=== PATIENT | male | born 1940 | race Caucasian/White ===

== ENCOUNTER 2017-04-10 16:39 | Emergency (ER) | payer MEDICARE, BC ==
--- NOTE | 2017-04-10 17:39 | ED ---
General Adult HPI - General Chief complaint: Extremity Injury, Lower Stated complaint: FALL Time Seen by Provider: 04/10/17 17:24 Source: patient, RN notes reviewed Mode of arrival: wheelchair Limitations: no limitations - History of Present Illness Initial comments: Patient is a 77-year-old male presents emergency room for evaluation of fall injury. Patient states about 3 days ago he was cleaning his garage, and he fell on his left side. Patient states he landed on his hip and hit the left side of his head. Patient denies loss of consciousness. Patient denies headache or dizziness. Patient states he got up and finished cleaning the garage. Patient states he did not have any pain for the past 2 days. Patient states yesterday he woke up again having pain over his right hip and left groin. Patient states he has pain whenever he tries to walk. Patient denies low back pain. Patient denies fecal or urinary incontinence. Patient denies saddle anesthesia. Patient denies paresthesias. Patient denies any current headache, changes in vision, ear pain, ringing in ears, nausea or vomiting. Patient denies any other injuries during incident. Patient states he is here to make sure his hip is not broken. Patient does state he has a history of left hip replacement. Patient denies taking any blood thinners. - Related Data Home Medications Medication Instructions Recorded Confirmed Hydrochlorothiazide [Hydrodiuril] 25 mg PO DAILY 04/10/17 04/10/17 Tamsulosin HCl [Flomax] 0.4 mg PO DAILY 04/10/17 04/10/17 Valsartan [Diovan] 40 mg PO BID 04/10/17 04/10/17 amLODIPine [Norvasc] 5 mg PO DAILY 04/10/17 04/10/17 Allergies Allergy/AdvReac Type Severity Reaction Status Date / Time No Known Allergies Allergy Verified 04/10/17 16:53 Review of Systems ROS Statement: Those systems with pertinent positive or pertinent negative responses have been documented in the HPI. ROS Other: All systems not noted in ROS Statement are negative. Past Medical History Past Medical History: Hypertension History of Any Multi-Drug Resistant Organisms: None Reported Past Surgical History: Orthopedic Surgery Additional Past Surgical History / Comment(s): left hip replacement Past Psychological History: No Psychological Hx Reported Smoking Status: Never smoker Past Alcohol Use History: None Reported Past Drug Use History: None Reported General Exam - General Exam Comments Initial Comments: Sitting in exam room, no acute distress. Limitations: no limitations General appearance: alert, in no apparent distress Head exam: Present: atraumatic, normocephalic, normal inspection Eye exam: Present: normal appearance ENT exam: Present: normal exam Neck exam: Present: normal inspection Respiratory exam: Present: normal lung sounds bilaterally. Absent: respiratory distress Cardiovascular Exam: Present: regular rate, normal rhythm, normal heart sounds Left Hip exam: Present: normal inspection, full ROM, tenderness (Anterior lateral hip ). Absent: swelling, abrasion Upper Leg exam: Present: normal inspection, full ROM. Absent: tenderness Knee exam: Present: normal inspection, full ROM. Absent: tenderness Lower Leg exam: Present: normal inspection, full ROM. Absent: tenderness Ankle exam: Present: normal inspection, full ROM. Absent: tenderness Foot/Toe exam: Present: normal inspection, full ROM. Absent: tenderness Neurovascular tendon exam: Present: no vascular compromise. Absent: pulse deficit (2+ dorsal pedal and posterior to the pulses), abnormal cap refill ( Capillary refill less than 2 seconds) Gait: observed and normal Right Hip exam: Present: normal inspection, full ROM, tenderness (Anterior lateral portion). Absent: swelling Upper Leg exam: Present: normal inspection, full ROM. Absent: tenderness Knee exam: Present: normal inspection, full ROM. Absent: tenderness Lower Leg exam: Present: normal inspection, full ROM. Absent: tenderness Ankle exam: Present: normal inspection, full ROM. Absent: tenderness Foot/Toe exam: Present: normal inspection, full ROM. Absent: tenderness Neurovascular tendon exam: Present: no vascular compromise. Absent: pulse deficit (2+ dorsal pedal and posterior tibial pulses), abnormal cap refill ( Capillary refill less than 2 seconds) Gait: observed and normal Back exam: Present: normal inspection Neurological exam: Present: alert, oriented X3, CN II-XII intact, normal gait Expanded Patient oriented to: Present: person, place, time Speech: Present: fluid speech Cranial nerves: EOM's Intact: Normal, Facial Sensation: Normal Sensory exam: Upper Extremity Light Touch: Normal, Lower Extremity Light Touch: Normal Motor strength exam: RUE: 5, LUE: 5, RLE: 5, LLE: 5 Psychiatric exam: Present: normal affect, normal mood Skin exam: Present: warm, dry, intact, normal color. Absent: rash Course Vital Signs 04/10/17 04/10/17 16:51 20:29 Temperature 97.8 F 97.7 F Pulse Rate 77 73 Respiratory 20 18 Rate Blood Pressure 120/69 139/82 O2 Sat by Pulse 99 98 Oximetry Medical Decision Making - Medical Decision Making patient is a 77-year-old male presents to the emergency room for evaluation of fall injury 3 days. Patient complaining of hip pain. Patient also mentioned he hit his head. Brain/C-spine CT negative for any acute findings. Bilateral hip/AP pelvis x-ray negative for any acute findings. Advised patient to follow- up with his primary care provider for reevaluation in 24-48 hours. Patient states he understands everything that was discussed with him. Return parameters discussed. Case discussed Dr. Lopez. - Radiology Data Radiology results: report reviewed, image reviewed Disposition Clinical Impression: Fall, Closed head injury, Contusion, hip Disposition: HOME SELF-CARE Condition: Good Instructions: Hip Contusion (ED) Additional Instructions: Ice on and off for 10-15 minutes for the next 24-48 hours. Tylenol or Motrin as needed for pain. Please follow-up with primary care provider in 7-10 days if symptoms are not improving. If new symptoms develop or symptoms worsen, please return to the ER. Referrals: Jo Yost MD [Primary Care Provider] - 1-2 days Time of Disposition: 20:27
[2017-04-10 20:30] VITALS: BP 139/82; PULSE 73; RESP 18; TEMP 97.7
--- NOTE | 2017-04-10 21:59 | CT ---
EXAMINATION TYPE: CT brain reji frost DATE OF EXAM: 04/10/2017 COMPARISON: NONE HISTORY: Fell 3 days ago with left-sided head injury. Neck pain. CT DLP: mGycm Automated exposure control for dose reduction was used. TECHNIQUE: CT scan of the head and cervical spine are performed without contrast. FINDINGS: There is some cerebral cortical atrophy. There is no mass effect nor midline shift. There is no sign of intracranial hemorrhage. The calvarium is intact. There is right temporal bone cortica l thinning that could be due to old surgery. Cervical vertebra have normal alignment. There is some degenerative disc space narrowing at C4-5 C5-6 . There is mild spurring of the endplates. Posterior elements are intact. Skull base is intact. There is no sign of a fracture. IMPRESSION: Cerebral atrophy. No acute intracranial abnormality. Mild spondylotic changes in the cervical spine. No fracture.
--- NOTE | 2017-04-11 08:24 | XR ---
EXAMINATION TYPE: XR Hip Bilateral and AP pelvis DATE OF EXAM: 04/10/2017 COMPARISON: NONE HISTORY: Generalized hip and back pain TECHNIQUE: A single AP view of the pelvis is obtained. Two views of the both hips are obtained. FINDINGS: There is no acute fracture/dislocation evident in the pelvis. The overlying soft tissue a ppears unremarkable. Two views of both hips show no acute fracture or dislocation. 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 Degenerative changes are seen in the right femoral acetabular joint inse rted as joint space narrowing and acetabular sclerosis. Extensive degenerative changes are appreciate d of the lumbosacral junction. The bone mineral density appears diminished. The overlying soft tissu e is unremarkable. IMPRESSION: There is no acute fracture or dislocation in the pelvis or bilateral hips.
--- NOTE | 2017-04-11 08:25 | XR ---
EXAMINATION TYPE: XR lumbosacral spine min 4V DATE OF EXAM: 04/10/2017 CLINICAL HISTORY: Back pain and hip pain. TECHNIQUE: Frontal, lateral, and oblique images of the lumbar spine are obtained. COMPARISON: None FINDINGS: There are 5 lumbar type vertebral bodies identified. The lumbar spine shows satisfactory alignment without evidence of acute fracture or dislocation. Extensive degenerative changes are seen of the lumbosacral junction at L5-S1 including disc space narrowing, facet arthropathy, and endplate sclerosis. To a lesser degree degenerative changes are seen at L4-L5. Bilateral neural foraminal narr owing is appreciated at L4-L5 and greater at L5-S1. Cholecystectomy clips are noted within the right upper quadrant. Vertebral body heights and disk space heights are within normal limits. The overlyi ng soft tissue appears unremarkable. IMPRESSION: Degenerative changes most exaggerated at L5-S1 with no evidence of acute fracture or disl ocation.
== END 2017-04-10 20:43 | disposition home or self-care (01) ==
LOC: EC 16:39
DX: S09.90XA Unspecified injury of head, initial encounter (principal); S70.02XA Contusion of left hip, initial encounter; I10 Essential (primary) hypertension; Z96.642 Presence of left artificial hip joint; Z79.899 Other long term (current) drug therapy; W01.0XXA Fall on same level from slipping, tripping and stumbling without subsequent striking against object, initial encounter; Y93.E5 Activity, floor mopping and cleaning; Y92.59 Other trade areas as the place of occurrence of the external cause
CPT/HCPCS: 70450; 72110; 72125; 73521; 99284

== ENCOUNTER 2018-01-24 07:19 | Day surgery (SDC) | payer MEDICARE, BC ==
[~2018-01-24 07:19] MED LIST: FAMOTIDINE 20 MG/2 ML VIAL IV ONE; ONDANSETRON 4 MG/2 ML VIAL IVP ONE; ceFAZolin 1,000 MG in DEXTROSE/WATER 1 50ML.BAG IV ONE
[2018-01-24 07:47] VITALS: BMI 17.1
[2018-01-24 07:56] VITALS: RESP 16
[2018-01-24] MEDS ORDERED: SODIUM CHLORIDE 0.9% 1,000 ML IV SCH (08:00)
[2018-01-24] MEDS ORDERED: IV FLUID CONTINUATION 1,000 ML IV ONE (08:23)
[2018-01-24] MEDS ORDERED: fentaNYL (PF) 50 MCG/ML 2 ML AMP ONE (08:39)
[2018-01-24] MEDS ORDERED: MIDAZOLAM 2 MG/2 ML VIAL ONE (08:39)
[2018-01-24] MEDS ORDERED: KETAMINE 10 MG/ML 20 ML VIAL ONE (08:39)
[2018-01-24] MEDS ORDERED: LIDOCAINE 2%-EPI 1:200,000 20 ML VIAL SQ ONE (08:55)
[2018-01-24] MEDS ORDERED: ceFAZolin 1,000 MG/50 ML BAG (PMX) IVPB ONE (08:55)
--- NOTE | 2018-01-24 10:10 | P.OP ---
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 Anesthesia: MAC Surgeon: Gomez Forde Pathology: none sent Condition: stable Disposition: PACU Indications for Procedure: This patient had been cancer removed from the left face and nose measuring 4 x 2 cm. Surgical repair was recommended by his instrumentation manager surgeon. All risks , benefits, and alternative therapies were discussed. Consent was obtained and all questions were answered. Operative Findings: Patient had a large defect of the left cheek medially and left nose measuring 4 x 2 cm. Description of Procedure: This patient was taken to the operative room and placed in the supine position. IV sedation was administered to the patient through a functioning IV line and the face was sterilely prepped and draped in usual fashion. The left face and left postauricular area was sterilely prepped and draped in usual fashion and anesthetized with lidocaine 1% with epinephrine 1 100,000. Approximately 10 minutes were allowed wait for full vasoconstrictive effects to take place. We did a debridement of the left facial defect with the delicate plastic scissors and a Brown-Adson forceps. We then harvested tissue behind the left ear with a 15 blade delicate plastic scissors and a Brown-Adson forceps and did a complex closure of the donor site with extensive undermining we removed redundant tissue and prepped the skin edge. The undermining was done both anteriorly posteriorly superiorly and inferiorly. We close the donor site after hemostasis with use of a 3-0 PDS and a 50 rapid Vicryl in a running nonlocking fashion this was done in all complex fashion. After closure of the donor site the skin was cut to size prepped defatted and placed as an overlay graft. A bolster dressing was applied to hold the skin into position with use of a 50 rapid Vicryl and a cottonball covered with Adaptic and bacitracin ointment. The patient tolerated this well and follow-up will be in the office in 1 week. The patient is to contact me if any from should arise.
[2018-01-24 10:14] VITALS: TEMP 97.1
[2018-01-24 10:46] VITALS: BP 115/66; PULSE 62
== END 2018-01-24 11:39 | disposition home or self-care (01) ==
LOC: OR 07:19 → 3SUR 07:21 → OR 11:39
PROVIDERS: ATTEND Otolaryngology
DX: L98.9 Disorder of the skin and subcutaneous tissue, unspecified (principal); Z85.828 Personal history of other malignant neoplasm of skin; I10 Essential (primary) hypertension; N40.0 Benign prostatic hyperplasia without lower urinary tract symptoms; Z79.2 Long term (current) use of antibiotics; Z79.891 Long term (current) use of opiate analgesic; Z79.899 Other long term (current) drug therapy
CPT/HCPCS: 15240; J2250; J3010; J0690

== ENCOUNTER 2018-02-26 11:45 | Day surgery (SDC) | payer MEDICARE, BC ==
[2018-02-26 12:57] LABS: Glucose,Whole Blood 138 mg/dL (75-99)
[2018-02-26] MEDS ORDERED: LIDOCAINE 1% 20 ML VIAL (10MG/ML) FOR IV START INTRADERMA ONE (13:08)
[2018-02-26] MEDS ORDERED: LACTATED RINGERS 1,000 ML IV ONE (13:08)
[2018-02-26] MEDS ORDERED: BUPIVACAINE (PF) 0.5% 30 ML VIAL SQ ONE ×3 (14:04→14:27)
[2018-02-26] MEDS ORDERED: LIDOCAINE 1%-EPI 1:100,000 20 ML VIAL SQ ONE ×2 (14:04→14:27)
[2018-02-26] MEDS ORDERED: diphenhydrAMINE 50 MG/ML 1 ML VIAL ONE (14:05)
[2018-02-26] MEDS ORDERED: ARTIFICIAL TEARS OINTMENT 3.5 GM TUBE ONE (14:05)
[2018-02-26] MEDS ORDERED: fentaNYL (PF) 50 MCG/ML 2 ML AMP ONE (14:05)
[2018-02-26] MEDS ORDERED: PROPOFOL 10 MG/ML 20 ML VIAL IV ONE (14:05)
[2018-02-26 15:36] VITALS: TEMP 97.1
--- NOTE | 2018-02-26 15:47 | P.OP ---
Date of Procedure: 02/26/18 Preoperative Diagnosis: 4.6 x 2 cm right posterior auricular lesion Postoperative Diagnosis: Same Procedure(s) Performed: Excision of a 4.6 x 2 cm posterior right auricular lesion with bilateral advancement flap closure with a secondary defect measuring 8.2 x 4 cm. Anesthesia: MAC Surgeon: Gomez Forde Estimated Blood Loss (ml): 5 Pathology: other (right posterior auricular lesion) Condition: stable Disposition: PACU Indications for Procedure: This patient has a history of multiple skin cancers and developed a new friable lesion behind the right ear. Wider resection was recommended. Operative Findings: All margins are negative for tumor Description of Procedure: Patient was taken to the operative room and IV sedation was administered and the right ear was sterilely prepped and draped in usual fashion. The lesion was marked and measured 4.6 x 2 cm and excised after injected with lidocaine and Marcaine mixed with a 15 blade. We injected this area with lidocaine 1% with epinephrine 1 100,011 Marcaine. There was a course prepped and draped in usual fashion. An incision was made surrounding this lesion he was excised with the delicate plastic scissors and a Brown-Adson forceps and marked medially black and inferiorly blue. Margins came back negative for tumor. We then filled developed an H-type incision and close this defect and elevated superior and inferiorly based pedicle flaps. After the pedicle flaps were developed a we rotated the flaps into position to close the defect and close the deep subcutaneous tissue with 3-0 PDS. We closed the deep dermal layer with 4-0 Vicryl we closed the mid dermal layer with 4-0 Vicryl and the skin was closed with a 4-0 Rapide Vicryl in an interrupted type fashion. Excellent approximation was obtained. Patient was taken to postanesthesia recovery in excellent condition. Follow-up will be in the office in 1 week.
[2018-02-26 16:01] LABS: Basophils % (A) 1 %; Eosinophils % (A) 0 %; HCT 38.5 % (39.0-53.0); HGB 12.8 gm/dL (13.0-17.5); Lymphocytes # (A) 0.7 k/uL (1.0-4.8); Lymphocytes % (A) 15 %; MCH 30.4 pg (25.0-35.0); MCHC 33.4 g/dL (31.0-37.0); MCV 91.1 fL (80.0-100.0); Mean Platelet Volume 7.1; Monocytes # (A) 0.3 k/uL (0-1.0); Monocytes % (A) 7 %; Neutrophils # (A) 3.5 k/uL (1.3-7.7); Neutrophils % (A) 76 %; Platelet Count 175 k/uL (150-450); RBC 4.22 m/uL (4.30-5.90); RDW 13.5 % (11.5-15.5); WBC 4.6 k/uL (3.8-10.6)
[2018-02-26 16:16] VITALS: RESP 18
[2018-02-26 16:22] LABS: Albumin 3.7 g/dL (3.5-5.0); C Reactive Protein <5.0 mg/L (<10.0)
[2018-02-26 16:30] VITALS: BP 133/84; PULSE 78
[2018-02-26 18:54] LABS: Erythrocyte Sedimentation Rate 9 mm/hr (0-15)
== END 2018-02-26 16:42 | disposition home or self-care (01) ==
LOC: OR 11:45
PROVIDERS: ATTEND Otolaryngology
DX: D04.21 Carcinoma in situ of skin of right ear and external auricular canal (principal); L57.0 Actinic keratosis; X32.XXXA Exposure to sunlight, initial encounter; I10 Essential (primary) hypertension; N40.0 Benign prostatic hyperplasia without lower urinary tract symptoms; F32.9 Major depressive disorder, single episode, unspecified; Z85.828 Personal history of other malignant neoplasm of skin; Z79.2 Long term (current) use of antibiotics; Z79.1 Long term (current) use of non-steroidal anti-inflammatories (NSAID); Z79.891 Long term (current) use of opiate analgesic; Z79.52 Long term (current) use of systemic steroids; Z79.899 Other long term (current) drug therapy; Z96.642 Presence of left artificial hip joint
CPT/HCPCS: 88305; 85652; 82040; 85025; 85384; 86140; 88331; 88332; 14301; J1200; J3010; J0690; J2704

== ENCOUNTER → 2018-05-25 | Outpatient (CLI) | payer MEDICARE, BC ==
[2018-05-25 16:28] LABS: T4, Free (Free Thyroxine) 1.37 ng/dL (0.78-2.19)
== END | disposition home or self-care (01) ==
LOC: LABWHC1 15:32
PROVIDERS: ATTEND Psychiatry & Neurology Neurology
DX: G20 Parkinson's disease (principal); R53.1 Weakness
CPT/HCPCS: 36415; 82550; 82607; 84439; 84443

== ENCOUNTER → 2019-08-07 | Outpatient (CLI) | payer MEDICARE, BC ==
--- NOTE | 2019-08-07 11:20 | MR ---
EXAMINATION TYPE: MR brain/cspine wo DATE OF EXAM: 08/07/2019 COMPARISON: CT brain and cervical spine April 10, 2017 HISTORY: Cervical myelopathy, left-sided weakness, CVA per order. TECHNIQUE: Multiplanar, multisequence imaging of the cervical spine, brain, and brainstem are perform ed without IV contrast. FINDINGS: BRAIN: Diffusion weighted images demonstrate no evidence of a recent infarct or other diffusion abnormality. There is no worrisome extra-axial fluid collection. Diffuse ventricular and sulcal prominence. Scatte red foci of T2 hyperintensity seen throughout the deep and periventricular white matter. Lesions pres umably basis of product of chronic small vessel ischemic change in patient with age. Midline structures demonstrate normal morphology. The craniocervical junction appears within normal limits. Normal vascular flow voids are present. The visualized sinuses are clear and the globes are i ntact. IMPRESSION: There is [id number] diffuse cerebral atrophy and moderate to advanced chronic small vessel ischemic change redemonstrated. No acute stroke is present MRI CERVICAL SPINE: FINDINGS: Sagittal images of the cervical spine show the craniocervical junction to remain within nor mal limits. The cervical and upper thoracic spinal cord is normal in course, caliber, and signal. Th ere is slight grade 1 retrolisthesis C4 on C5. The vertebral body heights are normal. Szcevrcr-ya-[id number] evere disc space narrowing C4-C5 level and C5-C6 level is present. The bone marrow signal intensity i s within normal limits. Axial images show C2-C3 levels appear within normal limits. Axial images at C3-C4 level shows central disc protrusion mildly effaces the anterior thecal sac and causing mild left-sided neural foraminal narrowing. Axial images at C4-C5 level show posterior spur disc complex effacing anterior thecal sac and causing mild left-sided neural foraminal narrowing. Axial images at C5-C6 level shows a left paracentral disc protrusion effacing anterior thecal sac and uncovertebral facet degenerative changes causing mild bilateral neural foraminal narrowing. Axial images at C6-C7 level show focal central disc protrusion effacing the anterior thecal sac, bila teral neural foramina are patent. Axial images at C7-T1 level are within normal limits. Surgical changes right submandibular level partially imaged. IMPRESSION: Multilevel degenerative changes in the cervical spine as detailed above.
== END | disposition home or self-care (01) ==
LOC: RADMRIMAIN 09:56
PROVIDERS: ATTEND Psychiatry & Neurology Neurology
DX: M47.812 Spondylosis without myelopathy or radiculopathy, cervical region (principal); I69.954 Hemiplegia and hemiparesis following unspecified cerebrovascular disease affecting left non-dominant side
CPT/HCPCS: 70551; 72141

== ENCOUNTER → 2019-08-20 | Outpatient (CLI) | payer MEDICARE, BC ==
[2019-08-20 13:41] LABS: Basophils % (A) 1 %; Eosinophils # (A) 0.1 k/uL (0-0.7); Eosinophils % (A) 1 %; HCT 42.4 % (39.0-53.0); Lymphocytes # (A) 0.9 k/uL (1.0-4.8); Lymphocytes % (A) 19 %; MCH 29.9 pg (25.0-35.0); MCV 90.5 fL (80.0-100.0); Mean Platelet Volume 6.6; Monocytes # (A) 0.4 k/uL (0-1.0); Monocytes % (A) 8 %; Neutrophils # (A) 3.4 k/uL (1.3-7.7); Neutrophils % (A) 69 %; Platelet Count 266 k/uL (150-450); RBC 4.68 m/uL (4.30-5.90); RDW 13.4 % (11.5-15.5)
[2019-08-20 13:56] LABS: Partial Thromboplastin Time 25.3 sec (22.0-30.0); Prothrombin Time 10.5 sec (9.0-12.0)
[2019-08-20 19:12] LABS: Chol/HDL Ratio 3.01
== END | disposition home or self-care (01) ==
LOC: LABWHC1 12:25
PROVIDERS: ATTEND Psychiatry & Neurology Neurology
DX: I63.9 Cerebral infarction, unspecified (principal)
CPT/HCPCS: 36415; 80061; 85025; 85610; 85730

== ENCOUNTER → 2019-10-07 | Outpatient (CLI) | payer MEDICARE, BC ==
--- NOTE | 2019-10-07 15:47 | US ---
EXAMINATION TYPE: US carotid duplex BILAT DATE OF EXAM: 10/07/2019 COMPARISON: NONE CLINICAL HISTORY: I65.22 Occlusion and stenosis of left carotid vincent. EXAM MEASUREMENTS: RIGHT: Peak Systolic Velocity (PSV) cm/sec ----- Right CCA: 82.7 ----- Right ICA: 73.5 ----- Right ECA: 129.0 ICA/CCA ratio: 0.89 RIGHT: End Diastole cm/sec ----- Right CCA: 37.0 ----- Right ICA: 20.0 ----- Right ECA: 0.0 LEFT: Peak Systolic Velocity (PSV) cm/sec ----- Left CCA: 65.8 ----- Left ICA: 69.8 ----- Left ECA: 78.7 ICA/CCA ratio: 1.06 LEFT: End Diastole cm/sec ----- Left CCA: 10.3 ----- Left ICA: 15.1 ----- Left ECA: 6.2 VERTEBRALS (direction of flow): Right Vertebral: Antegrade Left Vertebral: Antegrade Rhythm: Normal No significant velocity elevations, mild atherosclerotic changes. IMPRESSION: Mild degree of grayscale atheromatous plaquing with no sonographically evident hemodynam ically significant stenosis within either visualized carotid arterial system. Criteria for Assigning % of Stenosis / Diameter reduction (Estimation based on the indirect measurements of the internal carotid artery velocities (ICA PSV). 1. Normal (no stenosis)=ICA PSV < 125 cm/s: ratio < 2.0: ICA EDV<40 cm/s. 2. Less than 50% stenosis=ICA PSV < 125 cm/s: ratio < 2.0: ICA EDV<40 cm/s. 3. 50 to 69% stenosis=ICA PSV of 125 to 230 cm/s: ration 2.0 ? 4.0: ICA EDV 40-100 cm/s. 4. Greater than 70% stenosis to near occlusion= ICA PSV > 230 cm/s: ratio > 4.0: ICA EDV > 100 cm/s. 5. Near occlusion= ICA PSV velocities may be low or undetectable: variable ratio and ICA EDV. 6. Total occlusion=unable to detect flow.
== END | disposition home or self-care (01) ==
LOC: RADUSWWP 14:54
PROVIDERS: ATTEND Psychiatry & Neurology Neurology
DX: I65.23 Occlusion and stenosis of bilateral carotid arteries (principal); I66.9 Occlusion and stenosis of unspecified cerebral artery
CPT/HCPCS: 93880

== ENCOUNTER 2020-01-12 15:20 | Inpatient (IN) | payer MEDICARE, BC ==
[2020-01-12] MEDS ORDERED: fentaNYL (PF) 50 MCG/ML 2 ML AMP IV STA (16:09)
--- NOTE | 2020-01-12 17:19 | ED ---
Fall HPI - General Chief Complaint: Fall Stated Complaint: R Hip Pain Time Seen by Provider: 01/12/20 15:30 Source: patient Mode of arrival: EMS - History of Present Illness Initial Comments: The patient is a 79-year-old male with past medical history of dementia, hypertension and Parkinson's who presents to the emergency department after sustaining a fall. He states he was going outside to check his mail when he fell backwards and hit his head on a coat rack. He began having pain in his right hip. He was unable to ambulate. His did call EMS. They did not provide him with any medications. The patient arrives and is noted to have shortened and rotated right hip. Has had previous left hip replacement by Dr. Davidson. Denies any headaches or visual changes. No nausea or vomiting. Denies any neck pain. No chest pain or shortness of breath. No abdominal pain. No numbness or tingling in his lower externally. There are no other alleviating, Perceptin or modifying factors - Related Data Home Medications Medication Instructions Recorded Confirmed Hydrochlorothiazide [Hydrodiuril] 25 mg PO DAILY 04/10/17 01/12/20 Tamsulosin HCl [Flomax] 0.4 mg PO DAILY 04/10/17 01/12/20 amLODIPine [Norvasc] 5 mg PO DAILY 04/10/17 01/12/20 Sertraline HCl [Zoloft] 1 tab PO HS 02/26/18 01/12/20 Carbidopa/Levodopa [Sinemet CR 0.5 each PO DAILY 01/12/20 01/12/20 50-200 mg] Carbidopa/Levodopa [Sinemet CR 1 tab PO QAM 01/12/20 01/12/20 50-200 mg] L.acidoph,Paracasei, B.lactis 1 cap PO DAILY 01/12/20 01/12/20 [Probiotic] Psyllium Husk (with Sugar) 11 gm PO DAILY PRN 01/12/20 01/12/20 [Metamucil Powder] Allergies Allergy/AdvReac Type Severity Reaction Status Date / Time No Known Allergies Allergy Verified 01/12/20 18:35 Review of Systems ROS Statement: Those systems with pertinent positive or pertinent negative responses have been documented in the HPI. ROS Other: All systems not noted in ROS Statement are negative. Past Medical History Past Medical History: Dementia, Hypertension, Prostate Disorder, Skin Disorder Additional Past Medical History / Comment(s): skin cancer rt ear, parkinsons History of Any Multi-Drug Resistant Organisms: None Reported Past Surgical History: Orthopedic Surgery Additional Past Surgical History / Comment(s): left hip replacement, biopsy of prostate, and skin cancer removed Additional Past Anesthesia/Blood Transfusion Reaction / Comment(s): unable to urinate after general anethesia Past Psychological History: No Psychological Hx Reported Smoking Status: Never smoker Past Alcohol Use History: None Reported Past Drug Use History: None Reported - Past Family History Brother(s) Family Medical History: Cancer Additional Family Medical History / Comment(s): lung and neck growth Sister(s) Family Medical History: Cancer Additional Family Medical History / Comment(s): lung Father Additional Family Medical History / Comment(s): Both parents are . Unclear etiologies. General Exam Limitations: no limitations General appearance: alert, in no apparent distress Head exam: Present: atraumatic, normocephalic, normal inspection Neck exam: Present: normal inspection. Absent: tenderness, meningismus, lymp hadenopathy Respiratory exam: Present: normal lung sounds bilaterally. Absent: respiratory distress, wheezes, rales, rhonchi, stridor Cardiovascular Exam: Present: regular rate, normal rhythm, normal heart sounds. Absent: systolic murmur, diastolic murmur, rubs, gallop, clicks GI/Abdominal exam: Present: soft, normal bowel sounds. Absent: distended, tenderness, guarding, rebound, rigid Extremities exam: Present: other (tenderness right hip. right leg is shortened without rotation. ) Course Vital Signs 01/12/20 01/12/20 01/12/20 15:26 16:00 16:30 Temperature 98.8 F Pulse Rate 60 59 L 60 Respiratory 18 18 18 Rate Blood Pressure 111/69 102/68 117/68 O2 Sat by Pulse 98 98 Oximetry 01/12/20 01/12/20 01/12/20 17:30 18:00 18:30 Temperature Pulse Rate 62 65 60 Respiratory 18 16 18 Rate Blood Pressure 111/64 113/65 106/72 O2 Sat by Pulse 98 99 97 Oximetry 01/12/20 19:00 Temperature Pulse Rate 61 Respiratory 16 Rate Blood Pressure 119/65 O2 Sat by Pulse 97 Oximetry Medical Decision Making - Medical Decision Making Upon arrival the patient was placed into room 9. A thorough history and physical exam is performed. Patient is alert and oriented. He is complaining of right hip pain. The patient is sent over for a CT of his head and cervical spine. I also performed a chest, pelvis and hip x-ray. CT of the brain demonstrates no acute fracture dislocation cervical spine. No acute injury no hemorrhage, mass effect or midline shift. Chest x-ray demonstrates no acute cardiothoracic process. Right hip x-ray demonstrates a right subcapital femoral neck fracture. I did obtain blood work. Laboratory studies demonstrate a sodium of 135. Glucose 207. Coronavirus is not detected. I spoke with Dr. Hardin at 6:30 who agreed to admit the patient. I will place medicine on consult. Patient was transferred to floor in stable condition - Lab Data Result diagrams: 01/16/20 08:17 01/16/20 08:17 Lab Results 01/12/20 01/12/20 01/12/20 Range/Units 17:11 17:11 17:11 WBC 7.2 (3.8-10.6) k/uL RBC 4.46 (4.30-5.90) m/uL Hgb 13.1 (13.0-17.5) gm/dL Hct 40.3 (39.0-53.0) % MCV 90.2 (80.0-100.0) fL MCH 29.4 (25.0-35.0) pg MCHC 32.6 (31.0-37.0) g/dL RDW 13.4 (11.5-15.5) % Plt Count 315 (150-450) k/uL Neutrophils % 86 % Lymphocytes % 7 % Monocytes % 5 % Eosinophils % 0 % Basophils % 0 % Neutrophils # 6.2 (1.3-7.7) k/uL Lymphocytes # 0.5 L (1.0-4.8) k/uL Monocytes # 0.4 (0-1.0) k/uL Eosinophils # 0.0 (0-0.7) k/uL Basophils # 0.0 (0-0.2) k/uL PT 10.6 (9.0-12.0) sec INR 1.0 (<1.2) APTT 22.9 (22.0-30.0) sec Sodium 135 L (137-145) mmol/L Potassium 3.6 (3.5-5.1) mmol/L Chloride 96 L (98-107) mmol/L Carbon Dioxide 34 H (22-30) mmol/L Anion Gap 5 mmol/L BUN 24 H (9-20) mg/dL Creatinine 0.79 (0.66-1.25) mg/dL Est GFR (CKD-EPI)AfAm >90 (>60 ml/min/1.73 sqM) Est GFR (CKD-EPI)NonAf 85 (>60 ml/min/1.73 sqM) Glucose 207 H (74-99) mg/dL Calcium 9.4 (8.4-10.2) mg/dL Total Bilirubin 0.4 (0.2-1.3) mg/dL AST 21 (17-59) U/L ALT <6 (4-49) U/L Alkaline Phosphatase 71 (38-126) U/L Total Protein 6.6 (6.3-8.2) g/dL Albumin 3.8 (3.5-5.0) g/dL Coronavirus (PCR) (Not Detectd) 01/12/20 Range/Units 17:41 WBC (3.8-10.6) k/uL RBC (4.30-5.90) m/uL Hgb (13.0-17.5) gm/dL Hct (39.0-53.0) % MCV (80.0-100.0) fL MCH (25.0-35.0) pg MCHC (31.0-37.0) g/dL RDW (11.5-15.5) % Plt Count (150-450) k/uL Neutrophils % % Lymphocytes % % Monocytes % % Eosinophils % % Basophils % % Neutrophils # (1.3-7.7) k/uL Lymphocytes # (1.0-4.8) k/uL Monocytes # (0-1.0) k/uL Eosinophils # (0-0.7) k/uL Basophils # (0-0.2) k/uL PT (9.0-12.0) sec INR (<1.2) APTT (22.0-30.0) sec Sodium (137-145) mmol/L Potassium (3.5-5.1) mmol/L Chloride (98-107) mmol/L Carbon Dioxide (22-30) mmol/L Anion Gap mmol/L BUN (9-20) mg/dL Creatinine (0.66-1.25) mg/dL Est GFR (CKD-EPI)AfAm (>60 ml/min/1.73 sqM) Est GFR (CKD-EPI)NonAf (>60 ml/min/1.73 sqM) Glucose (74-99) mg/dL Calcium (8.4-10.2) mg/dL Total Bilirubin (0.2-1.3) mg/dL AST (17-59) U/L ALT (4-49) U/L Alkaline Phosphatase (38-126) U/L Total Protein (6.3-8.2) g/dL Albumin (3.5-5.0) g/dL Coronavirus (PCR) Not Detected (Not Detectd) - EKG Data EKG Comments: EKG demonstrates normal sinus rhythm with ventricular rate of 63. PA interval 132. QRS 92. QTC of 427. No acute ST segment elevations or depressions concerning for ischemic changes Disposition Clinical Impression: Fall, Closed right hip fracture, Blunt head trauma Disposition: ADMITTED IP TO THIS [facility] Condition: Stable Is patient prescribed a controlled substance at d/c from ED?: No Decision to Admit Reason: Admit from EC Decision Date: 01/12/20 Decision Time: 18:17
--- NOTE | 2020-01-12 17:49 | CT ---
EXAMINATION TYPE: CT brain cspine wo con DATE OF EXAM: 01/12/2020 COMPARISON: HISTORY: fall, bht CT DLP: 1237.8 mGycm Automated exposure control for dose reduction was used. TECHNIQUE: CT scan of the head and cervical spine are performed without contrast. FINDINGS: There is no acute intracranial hemorrhage, mass effect, or midline shift identified. The ventricles and sulci are within normal limits in size. The globes are intact and the visualized sin uses are clear. Age-related changes of atrophy noted, periventricular white matter shows patchy low a ttenuation. Marked thinning of the right frontal bone laterally on axial image 24 through 29 appears well-corticated and is not felt likely to be acute, some loss of scalp thickness is noted over this r egion, correlate for any history of remote trauma in this region. Cervical spine is visualized in its entirety from C1 through upper thoracic levels and demonstrates satisfactory alignment without evidence of acute fracture or dislocation. Prevertebral soft tissue a ppears within normal limits. The C1-C2 articulation is unremarkable. Degenerative disc changes are noted within the visualized spine. IMPRESSION: 1. There is no acute fracture or dislocation evident in the cervical spine. 2. No acute intracranial hemorrhage, mass effect, or midline shift is seen.
[2020-01-12 17:50] LABS: ALT <6 U/L (4-49); AST 21 U/L (17-59); African American GFR (CKD) >90 (>60 ml/min/1.73 sqM); Albumin 3.8 g/dL (3.5-5.0); Alkaline Phosphatase 71 U/L (38-126); Anion Gap 5 mmol/L; Blood Urea Nitrogen 24 mg/dL (9-20); Calcium 9.4 mg/dL (8.4-10.2); Carbon Dioxide 34 mmol/L (22-30); Chloride 96 mmol/L (98-107); Glucose 207 mg/dL (74-99); Non-African American GFR(CKD) 85 (>60 ml/min/1.73 sqM); Potassium 3.6 mmol/L (3.5-5.1); Sodium 135 mmol/L (137-145); Total Bilirubin 0.4 mg/dL (0.2-1.3); Total Protein 6.6 g/dL (6.3-8.2)
--- NOTE | 2020-01-12 17:50 | XR ---
EXAMINATION TYPE: XR chest 2V DATE OF EXAM: 01/12/2020 COMPARISON: NONE HISTORY: Cough, pain TECHNIQUE: Frontal and lateral views of the chest are obtained on 4 images. FINDINGS: There is no focal air space opacity, pleural effusion, or pneumothorax seen. The cardiac silhouette size is within normal limits. The osseous structures are intact. Prominent lung volumes suggest underlying COPD. Surgical clips are present in the right axilla. IMPRESSION: No acute cardiopulmonary process.
[2020-01-12 17:53] LABS: Partial Thromboplastin Time 22.9 sec (22.0-30.0); Prothrombin Time 10.6 sec (9.0-12.0)
--- NOTE | 2020-01-12 17:53 | XR ---
EXAMINATION TYPE: XR Hip RT and AP Pelvis DATE OF EXAM: 01/12/2020 COMPARISON: Prior x-ray 04/10/2017 HISTORY: Trauma and pain TECHNIQUE: A single AP view of the pelvis is obtained. Two views of the right hip are obtained. FINDINGS: There is a right femoral neck fracture in the subcapital location, an impacted appearance is noted. There is no dislocation. Bone mineralization is reduced. Postop change noted to the left hi p. Degenerative disc changes are present in the visualized lower lumbar spine. IMPRESSION: Right subcapital femoral neck fracture
[2020-01-12 17:54] LABS: Basophils % (A) 0 %; Eosinophils % (A) 0 %; HCT 40.3 % (39.0-53.0); HGB 13.1 gm/dL (13.0-17.5); Lymphocytes # (A) 0.5 k/uL (1.0-4.8); Lymphocytes % (A) 7 %; MCH 29.4 pg (25.0-35.0); MCHC 32.6 g/dL (31.0-37.0); MCV 90.2 fL (80.0-100.0); Mean Platelet Volume 6.9; Monocytes # (A) 0.4 k/uL (0-1.0); Monocytes % (A) 5 %; Neutrophils # (A) 6.2 k/uL (1.3-7.7); Neutrophils % (A) 86 %; Platelet Count 315 k/uL (150-450); RBC 4.46 m/uL (4.30-5.90); RDW 13.4 % (11.5-15.5); WBC 7.2 k/uL (3.8-10.6)
[2020-01-12] MEDS ORDERED: NALOXONE 0.4 MG/ML 1 ML VIAL IV PRN (18:29)
[2020-01-12] MEDS: SODIUM CHLORIDE 0.9% 1,000 ML IV SCH (18:42)
[2020-01-12] MEDS ORDERED: PSYLLIUM HUSK 100% 6 GM PACKET PO PRN (21:05)
[2020-01-12] MEDS: HYDROcodone/APAP 5-325MG 1 EACH TAB PO PRN (21:19)
[2020-01-13] MEDS: MORPHINE SULFATE 4 MG/ML SYRINGE IV PRN (04:46)
[2020-01-13 06:52] LABS: Glucose,Whole Blood 146 mg/dL (75-99)
[2020-01-13 07:05] LABS: Basophils % (A) 0 %; Eosinophils % (A) 0 %; HGB 13.3 gm/dL (13.0-17.5); Lymphocytes # (A) 0.5 k/uL (1.0-4.8); Lymphocytes % (A) 6 %; MCH 30.2 pg (25.0-35.0); MCHC 33.2 g/dL (31.0-37.0); MCV 91.1 fL (80.0-100.0); Mean Platelet Volume 6.8; Monocytes # (A) 0.6 k/uL (0-1.0); Monocytes % (A) 7 %; Neutrophils # (A) 7.7 k/uL (1.3-7.7); Neutrophils % (A) 86 %; Platelet Count 325 k/uL (150-450); RBC 4.39 m/uL (4.30-5.90); RDW 13.3 % (11.5-15.5)
[2020-01-13 07:34] LABS: African American GFR (CKD) >90 (>60 ml/min/1.73 sqM); Anion Gap 7 mmol/L; Blood Urea Nitrogen 18 mg/dL (9-20); Calcium 9.2 mg/dL (8.4-10.2); Carbon Dioxide 31 mmol/L (22-30); Chloride 98 mmol/L (98-107); Glucose 149 mg/dL (74-99); Non-African American GFR(CKD) 87 (>60 ml/min/1.73 sqM); Potassium 3.6 mmol/L (3.5-5.1); Sodium 136 mmol/L (137-145)
[2020-01-13] MEDS: CARBIDOPA-LEVODOPA ER 50-200MG 1 EACH TABLET.ER PO SCH (07:51)
[2020-01-13] MEDS: amLODIPine 5 MG TAB PO SCH (07:52)
[2020-01-13] MEDS: TAMSULOSIN 0.4 MG CAP.ER.24H PO SCH (07:53)
[2020-01-13] MEDS: HYDROCHLOROTHIAZIDE 25 MG TAB PO SCH (07:54)
[2020-01-13] MEDS: LACTOBACILLUS ACIDOPH & BULGAR 1 EACH PACKET PO SCH (07:59)
[2020-01-13 10:30] VITALS: BMI 16.5
[2020-01-13 11:40] LABS: Glucose,Whole Blood 217 mg/dL (75-99)
[2020-01-13] MEDS: SODIUM CHLORIDE 0.9% 1,000 ML IV SCH (12:04)
--- NOTE | 2020-01-13 14:01 | P.HPOR ---
History of Present Illness H&P Date: 01/13/20 Chief Complaint: Right femoral neck fracture Patient is an 79-year-old male who was admitted to [facility] yesterday afternoon after falling at home. According to the ER note patient was going to check his mail when he fell just inside his doorway. He was unable to ambulate after, his did call the EMS service which brought him to the hospital. Images were done upon arrival, they demonstrated a right femoral neck fracture. Dr. Gongora was contacted by the emergency room staff, the patient was admitted under our care with likely surgical intervention to be discussed. Internal medicine was placed on consult. Patient was evaluated today at bedside, he is resting comfortably. He is able to answer most my questions appropriately, he does have a history of dementia. He has no other orthopedic complaints at this time. He has a history of a left total hip arthroplasty. I did contact the patient's daughter earlier today, we discussed the case and treatment plan. Review of Systems Constitutional: Reports as per HPI Past Medical History Past Medical History: Dementia, Hypertension, Prostate Disorder, Skin Disorder Additional Past Medical History / Comment(s): skin cancer rt ear, parkinsons History of Any Multi-Drug Resistant Organisms: None Reported Past Surgical History: Orthopedic Surgery Additional Past Surgical History / Comment(s): left hip replacement, biopsy of prostate, and skin cancer removed Additional Past Anesthesia/Blood Transfusion Reaction / Comment(s): unable to urinate after general anethesia Past Psychological History: No Psychological Hx Reported Smoking Status: Never smoker Past Alcohol Use History: None Reported Past Drug Use History: None Reported - Past Family History Brother(s) Family Medical History: Cancer Additional Family Medical History / Comment(s): lung and neck growth Sister(s) Family Medical History: Cancer Additional Family Medical History / Comment(s): lung Medications and Allergies Home Medications Medication Instructions Recorded Confirmed Type Hydrochlorothiazide [Hydrodiuril] 25 mg PO DAILY 04/10/17 01/12/20 History Tamsulosin HCl [Flomax] 0.4 mg PO DAILY 04/10/17 01/12/20 History amLODIPine [Norvasc] 5 mg PO DAILY 04/10/17 01/12/20 History Sertraline HCl [Zoloft] 1 tab PO HS 02/26/18 01/12/20 History Carbidopa/Levodopa [Sinemet CR 0.5 each PO DAILY 01/12/20 01/12/20 History 50-200 mg] Carbidopa/Levodopa [Sinemet CR 1 tab PO QAM 01/12/20 01/12/20 History 50-200 mg] L.acidoph,Paracasei, B.lactis 1 cap PO DAILY 01/12/20 01/12/20 History [Probiotic] Psyllium Husk (with Sugar) 11 gm PO DAILY PRN 01/12/20 01/12/20 History [Metamucil Powder] Allergies Allergy/AdvReac Type Severity Reaction Status Date / Time No Known Allergies Allergy Verified 01/12/20 18:35 Physical Examination Right lower extremity: There is no obvious open lesions or sores present, no significant areas of erythema or soft tissue swelling Patient is unable to straight leg raise, logroll maneuver reproduces discomfort Calf is soft, tenderness with palpation Plantar flexion, dorsiflexion, EHL, FHL are intact Sensory exam to light touch throughout the extremity is intact Dorsalis pedis pulses 2+ Results - Labs Labs: Abnormal Lab Results - Last 24 Hours (Table) 01/12/20 01/12/20 01/13/20 Range/Units 17:11 17:11 06:43 Lymphocytes # 0.5 L 0.5 L (1.0-4.8) k/uL Sodium 135 L (137-145) mmol/L Chloride 96 L (98-107) mmol/L Carbon Dioxide 34 H (22-30) mmol/L BUN 24 H (9-20) mg/dL Glucose 207 H (74-99) mg/dL POC Glucose (mg/dL) (75-99) mg/dL 01/13/20 01/13/20 01/13/20 Range/Units 06:43 06:51 11:39 Lymphocytes # (1.0-4.8) k/uL Sodium 136 L (137-145) mmol/L Chloride (98-107) mmol/L Carbon Dioxide 31 H (22-30) mmol/L BUN (9-20) mg/dL Glucose 149 H (74-99) mg/dL POC Glucose (mg/dL) 146 H 217 H (75-99) mg/dL H & H 01/12/20 01/13/20 Range/Units 17:11 06:43 Hgb 13.1 13.3 (13.0-17.5) gm/dL Hct 40.3 40.0 (39.0-53.0) % Coagulation 01/12/20 Range/Units 17:11 INR 1.0 (<1.2) Result Diagrams: 01/13/20 06:43 01/13/20 06:43 - Diagnostic results Hip x-ray: report reviewed, image reviewed (Images of the hip demonstrated impacted right femoral neck fracture.) Assessment and Plan Assessment: Right femoral neck fracture Status post fall from standing Other medical comorbidities Plan: I was able to discuss the case, including physical exam findings and imaging studies my attending Dr. Gongora. Our plan is to proceed with surgical intervention, more specifically direct anterior right total hip arthroplasty. I did discuss the treatment with the patient and the daughter both today. They're both in good understanding and would like to proceed Obtain consent Plan is to proceed with surgery on 01/15/2020 GI and DVT prophylaxis, we'll begin heparin today, discontinue the night before surgery Regular diet at this time, nothing by mouth night before surgery Medical recommendations Nonweightbearing at this time Physical therapy evaluation after surgery Subacute rehab early next week Further recommendations to follow
[2020-01-13] MEDS: HEPARIN SODIUM,PORCINE 5,000 UNIT/ML 1 ML VIAL SQ SCH ×2 (14:33→20:10)
--- NOTE | 2020-01-13 15:02 | P.CONS ---
History of Present Illness - Reason for Consult Consult date: 01/13/20 Medical management - History of Present Illness This is an 79-year-old male patient of Dr. Davila with past medical history of hypertension, benign prostatic hypertrophy, dementia, Parkinson's, previous left hip replacement with Dr. Reid. Patient lives at home with his . He states he was walking with his walker and a got caught any falling injuring his right hip with hip pain. He denies any needs that and denies loss of consciousness. Patient was brought into [facility] emergency center for evaluation. He was afebrile, heart rate 60, blood pressure 106/72, pulse ox 97% on room air. CBC was unremarkable with hemoglobin 13.1. His sodium 135, potassium 3.6, chloride 96, CO2 34, BUN 24 and creatinine 0.79. Initial blood sugar 207. Patient does not have history of diabetes. Liver function tests were normal and coronavirus PCR negative. Chest x-ray shows no acute cardiopulmonary process. Right hip and pelvis x-ray revealed right Subcapital femoral neck fracture. CAT scan of the brain and cervical spine revealed no acute fracture dislocation of the cervical spine in no acute intracranial hemorrhage, mass effect or midline shift. Patient was admitted to the [facility] floor under orthopedics with plan for surgical intervention on Friday. Review of Systems Constitutional: Denies anorexia, Denies chills, Denies fatigue, Denies fever, Denies lethargy, Denies malaise, Denies poor appetite, Denies weakness, Denies weight loss Eyes: denies blurred vision, denies pain Ears, nose, mouth and throat: Denies dysphagia, Denies headache, Denies nasal congestion, Denies nasal discharge, Denies sore throat, Denies vertigo Cardiovascular: Denies chest pain, Denies decreased exercise tolerance, Denies dyspnea on exertion, Denies edema, Denies leg edema, Denies lightheadedness, Denies shortness of breath, Denies syncope Respiratory: Denies cough, Denies cough with sputum, Denies dyspnea, Denies excessive sputum, Denies hemoptysis, Denies home oxygen, Denies respiratory infections, Denies wheezing Gastrointestinal: Denies abdominal pain, Denies diarrhea, Denies loss of appetite, Denies nausea, Denies vomiting Genitourinary: Denies dysuria, Denies urinary frequency, Denies urinary retention Musculoskeletal: Reports gait dysfunction, Denies muscle weakness, Denies myalgias Musculoskeletal: right: hip pain Integumentary: Denies pruritus, Denies rash, Denies wounds Neurological: Denies change in mentation, Denies change in speech, Denies numbness, Denies seizures, Denies weakness Psychiatric: Denies anxiety, Denies depression Endocrine: Denies fatigue, Denies weight change Past Medical History Past Medical History: Dementia, Hypertension, Prostate Disorder, Skin Disorder Additional Past Medical History / Comment(s): skin cancer rt ear, parkinsons History of Any Multi-Drug Resistant Organisms: None Reported Past Surgical History: Orthopedic Surgery Additional Past Surgical History / Comment(s): left hip replacement, biopsy of prostate, and skin cancer removed Additional Past Anesthesia/Blood Transfusion Reaction / Comm: unable to urinate after general anethesia Past Psychological History: No Psychological Hx Reported Smoking Status: Never smoker Past Alcohol Use History: None Reported Past Drug Use History: None Reported - Past Family History Brother(s) Family Medical History: Cancer Additional Family Medical History / Comment(s): Patient has 1 brother that is . lung and neck growth Sister(s) Family Medical History: Cancer Additional Family Medical History / Comment(s): Sister is with lung cancer. Father Additional Family Medical History / Comment(s): Both parents are . Unclear etiologies. Medications and Allergies Home Medications Medication Instructions Recorded Confirmed Type Hydrochlorothiazide [Hydrodiuril] 25 mg PO DAILY 04/10/17 01/12/20 History Tamsulosin HCl [Flomax] 0.4 mg PO DAILY 04/10/17 01/12/20 History amLODIPine [Norvasc] 5 mg PO DAILY 04/10/17 01/12/20 History Sertraline HCl [Zoloft] 1 tab PO HS 02/26/18 01/12/20 History Carbidopa/Levodopa [Sinemet CR 0.5 each PO DAILY 01/12/20 01/12/20 History 50-200 mg] Carbidopa/Levodopa [Sinemet CR 1 tab PO QAM 01/12/20 01/12/20 History 50-200 mg] L.acidoph,Paracasei, B.lactis 1 cap PO DAILY 01/12/20 01/12/20 History [Probiotic] Psyllium Husk (with Sugar) 11 gm PO DAILY PRN 01/12/20 01/12/20 History [Metamucil Powder] Allergies Allergy/AdvReac Type Severity Reaction Status Date / Time No Known Allergies Allergy Verified 01/12/20 18:35 Physical Exam Vitals: Vital Signs Temp Pulse Pulse Resp BP BP Pulse Ox 01/13/20 07:00 98.4 F 65 18 130/75 01/13/20 00:30 98.4 F 65 14 124/81 96 01/12/20 19:34 98.6 F 67 14 134/77 98 01/12/20 19:00 61 16 119/65 97 01/12/20 18:30 60 18 106/72 97 01/12/20 18:00 65 16 113/65 99 01/12/20 17:30 62 18 111/64 98 01/12/20 16:30 60 18 117/68 01/12/20 16:00 59 L 18 102/68 98 01/12/20 15:26 98.8 F 60 18 111/69 98 Intake and Output 01/12/20 01/13/20 01/13/20 22:59 06:59 14:59 Intake Total 50 500 Output Total 400 Balance 50 100 Intake: Intake, IV Titration 500 Amount Sodium Chloride 0.9% 1, 500 000 ml @ 50 mls/hr IV . Q20H [facility] Rx#:[id number] Blood Product 50 Output: Urine 400 Other: Voiding Method Indwelling Catheter Weight 56.699 kg Gen: This is a 79-year-old thin male. Patient is resting in bed and appears in no acute distress. HEENT: Head is atraumatic, normocephalic. Pupils equal, round. Sclerae is anicteric. NECK: Supple. No JVD. No lymphadenopathy. No thyromegaly. LUNGS: Clear to auscultation. No wheezes or rhonchi. No intercostal retractions. HEART: Regular rate and rhythm. No murmur. ABDOMEN: Soft. Bowel sounds are present. No masses. No tenderness. EXTREMITIES: No pedal edema. No calf tenderness. Right lower extremity is shortened and externally rotated. NEUROLOGICAL: Patient is awake, alert and oriented x3. Cranial nerves 2 through 12 are grossly intact. Results CBC & Chem 7: 01/13/20 06:43 01/13/20 06:43 Labs: Abnormal Lab Results - Last 24 Hours (Table) 01/12/20 01/12/20 01/13/20 Range/Units 17:11 17:11 06:43 Lymphocytes # 0.5 L 0.5 L (1.0-4.8) k/uL Sodium 135 L (137-145) mmol/L Chloride 96 L (98-107) mmol/L Carbon Dioxide 34 H (22-30) mmol/L BUN 24 H (9-20) mg/dL Glucose 207 H (74-99) mg/dL POC Glucose (mg/dL) (75-99) mg/dL 01/13/20 01/13/20 Range/Units 06:43 06:51 Lymphocytes # (1.0-4.8) k/uL Sodium 136 L (137-145) mmol/L Chloride (98-107) mmol/L Carbon Dioxide 31 H (22-30) mmol/L BUN (9-20) mg/dL Glucose 149 H (74-99) mg/dL POC Glucose (mg/dL) 146 H (75-99) mg/dL Assessment and Plan Plan: 1. Right femoral neck fracture. Patient is been admitted on the care of Dr. Gongora with plan for surgical intervention on Friday. Pain management per orthopedics. PT and OT. Incentive spirometry to reduce incidence of atelectasis and hospital-acquired pneumonia. 2. Hypertension. Continue hydrochlorothiazide 25 mg daily, amlodipine 5 mg daily. 3. Benign prostatic hypertrophy. Monitor for urinary retention. Continue Flomax 0.4 mg daily 4. Parkinson's with dementia. Continue Sinemet at home dose. 5. Skin cancer status post resection right scalp area. 6. Recurrent depression. Continue Zoloft 25 mg at bedtime. 7. DVT prophylaxis. Heparin subcu. 8. GI prophylaxis. Pepcid. Patient will be admitted to the hospital for a minimum of 2 night stay. Discharge plan: Subacute rehab to [facility] on Friday Impression and plan of care have been directed as dictated by the signing physician. Desi Eastman nurse practitioner acting as scribe for signing physician.
[2020-01-13 16:57] LABS: Glucose,Whole Blood 198 mg/dL (75-99)
[2020-01-13 18:30] LABS: Appearance,Urine Clear (Clear); Bacteria,Urine Rare /hpf; Bilirubin,Urine Negative (Negative); Blood,Urine Moderate (Negative); Color,Urine Yellow; Glucose,Urine (UA) Negative (Negative); Ketones,Urine Negative (Negative); Leukocyte Esterase,Urine Moderate (Negative); Mucus,Urine Rare /hpf; Nitrite,Urine Negative (Negative); Protein,Urine Trace (Negative); RBC,Urine 84 /hpf (0-5); Specific Gravity,Urine 1.019 (1.001-1.035); WBC,Urine 17 /hpf (0-5)
[2020-01-13] MEDS: SERTRALINE 25 MG TAB PO SCH (20:10)
[2020-01-14] MEDS: HEPARIN SODIUM,PORCINE 5,000 UNIT/ML 1 ML VIAL SQ SCH (08:37)
[2020-01-14] MEDS: amLODIPine 5 MG TAB PO SCH (08:37)
[2020-01-14] MEDS: HYDROCHLOROTHIAZIDE 25 MG TAB PO SCH (08:37)
[2020-01-14] MEDS: CARBIDOPA-LEVODOPA ER 50-200MG 1 EACH TABLET.ER PO SCH (08:37)
[2020-01-14] MEDS: TAMSULOSIN 0.4 MG CAP.ER.24H PO SCH (08:37)
[2020-01-14] MEDS: LACTOBACILLUS ACIDOPH & BULGAR 1 EACH PACKET PO SCH (08:37)
[2020-01-14] MEDS: SODIUM CHLORIDE 0.9% 1,000 ML IV SCH (08:38)
[2020-01-14 09:42] LABS: HGB 12.3 gm/dL (13.0-17.5); MCH 29.9 pg (25.0-35.0); MCHC 32.4 g/dL (31.0-37.0); MCV 92.2 fL (80.0-100.0); Mean Platelet Volume 6.6; Platelet Count 254 k/uL (150-450); RBC 4.12 m/uL (4.30-5.90); RDW 13.3 % (11.5-15.5)
[2020-01-14] MEDS: MORPHINE SULFATE 4 MG/ML SYRINGE IV PRN (11:42)
--- NOTE | 2020-01-14 15:05 | P.PN ---
Subjective Progress Note Date: 01/14/20 This is an 79-year-old male patient of Dr. Davila with past medical history of hypertension, benign prostatic hypertrophy, dementia, Parkinson's, previous left hip replacement with Dr. Reid. Patient lives at home with his . He states he was walking with his walker and a got caught any falling injuring his right hip with hip pain. He denies any needs that and denies loss of consciousness. Patient was brought into [facility] emergency center for evaluation. He was afebrile, heart rate 60, blood pressure 106/72, pulse ox 97% on room air. CBC was unremarkable with hemoglobin 13.1. His sodium 135, potassium 3.6, chloride 96, CO2 34, BUN 24 and creatinine 0.79. Initial blood sugar 207. Patient does not have history of diabetes. Liver function tests were normal and coronavirus PCR negative. Chest x-ray shows no acute cardiopulmonary process. Right hip and pelvis x-ray revealed right Subcapital femoral neck fracture. CAT scan of the brain and cervical spine revealed no acute fracture dislocation of the cervical spine in no acute intracranial hemorrhage, mass effect or midline shift. Patient was admitted to the [facility] floor under orthopedics with plan for surgical intervention on Friday. 01/13: Patient continues to complain of right hip pain. He denies chest pain or shortness of breath. Patient's been afebrile, heart rate 62, blood pressure 137/70, pulse ox 98% on room air. Hemoglobin this morning 12.3. Nursing relates the patient had a small amount of bright red blood on his lips as morning thought that maybe he coughed this up. No further episodes. This will be monitored. Urbina catheter is in place. He is scheduled for surgery on . Objective - Vital Signs Vital signs: Vital Signs Temp 99.0 F 01/14/20 07:00 Pulse 62 01/14/20 07:00 Resp 14 01/14/20 07:00 BP 137/70 01/14/20 07:00 Pulse Ox 98 01/14/20 07:00 Intake & Output 01/13/20 01/14/20 01/14/20 18:59 06:59 18:59 Intake Total 400 600 Output Total 275 350 Balance 125 250 Weight 56.699 kg Intake: Intake, IV Titration 400 600 Amount Sodium Chloride 0.9% 1, 400 600 000 ml @ 50 mls/hr IV . Q20H [facility] Rx#:[id number] Output: Urine 275 350 Other: Voiding Method Indwelling Catheter Indwelling Catheter - Exam Review of Systems Constitutional: Denies anorexia, Denies chills, Denies fatigue, Denies fever, Denies lethargy, Denies malaise, Denies poor appetite, Denies weakness, Denies weight loss Eyes: denies blurred vision, denies pain Ears, nose, mouth and throat: Denies dysphagia, Denies headache, Denies nasal congestion, Denies nasal discharge, Denies sore throat, Denies vertigo Cardiovascular: Denies chest pain, Denies decreased exercise tolerance, Denies dyspnea on exertion, Denies edema, Denies leg edema, Denies lightheadedness, Denies shortness of breath, Denies syncope Respiratory: Denies cough, Denies cough with sputum, Denies dyspnea, Denies excessive sputum, Denies hemoptysis, Denies home oxygen, Denies respiratory infections, Denies wheezing Gastrointestinal: Denies abdominal pain, Denies diarrhea, Denies loss of appetite, Denies nausea, Denies vomiting Genitourinary: Denies dysuria, Denies urinary frequency, Denies urinary retention Musculoskeletal: Reports gait dysfunction, Denies muscle weakness, Denies myalgias Musculoskeletal: right: hip pain-continues Integumentary: Denies pruritus, Denies rash, Denies wounds Neurological: Denies change in mentation, Denies change in speech, Denies numbness, Denies seizures, Denies weakness Psychiatric: Denies anxiety, Denies depression Endocrine: Denies fatigue, Denies weight change Physical examination Gen: This is a 79-year-old thin male. Patient is resting in bed and appears in no acute distress. HEENT: Head is atraumatic, normocephalic. Pupils equal, round. Sclerae is anicteric. NECK: Supple. No JVD. No lymphadenopathy. No thyromegaly. LUNGS: Clear to auscultation. No wheezes or rhonchi. No intercostal retractions. HEART: Regular rate and rhythm. No murmur. ABDOMEN: Soft. Bowel sounds are present. No masses. No tenderness. EXTREMITIES: No pedal edema. No calf tenderness. Right lower extremity is shortened and externally rotated. NEUROLOGICAL: Patient is awake, alert and oriented x3. Cranial nerves 2 through 12 are grossly intact. - Labs CBC & Chem 7: 01/14/20 08:53 01/13/20 06:43 Labs: Abnormal Lab Results - Last 24 Hours (Table) 01/13/20 01/13/20 01/13/20 Range/Units 11:39 16:55 18:09 POC Glucose (mg/dL) 217 H 198 H (75-99) mg/dL Urine Protein Trace H (Negative) Urine Blood Moderate H (Negative) Ur Leukocyte Esterase Moderate H (Negative) Urine RBC 84 H (0-5) /hpf Urine WBC 17 H (0-5) /hpf Urine Bacteria Rare H (None) /hpf Urine Mucus Rare H (None) /hpf Microbiology - Last 24 Hours (Table) 01/13/20 18:09 Urine Culture - Preliminary Urine,Voided Assessment and Plan Plan: 1. Right femoral neck fracture. Patient is been admitted on the care of Dr. Gongora with plan for surgical intervention on Friday. Pain management per orthopedics. PT and OT. Incentive spirometry to reduce incidence of atelectasis and hospital-acquired pneumonia. Patient is scheduled for right total hip arthroplasty on Friday. 2. Hypertension. Continue hydrochlorothiazide 25 mg daily, amlodipine 5 mg daily. 3. Benign prostatic hypertrophy. Monitor for urinary retention. Continue Flomax 0.4 mg daily and Urbina catheter. 4. Parkinson's with dementia. Continue Sinemet at home dose. 5. Skin cancer status post resection right scalp area. 6. Recurrent depression. Continue Zoloft 25 mg at bedtime. 7. DVT prophylaxis. Heparin subcu. 8. GI prophylaxis. Pepcid. Discharge plan: Subacute rehab to [facility] on Friday Impression and plan of care have been directed as dictated by the signing physician. Desi Eastman nurse practitioner acting as scribe for signing physician.
--- NOTE | 2020-01-14 15:41 | P.PN ---
Progress Note - Text Progress Note Date: 01/14/20 Diagnosis: Right femoral neck fracture Patient was evaluated today at bedside, he is resting comfortably. He will be made nothing by mouth after midnight tonight, discontinue heparin today. Planning for surgery of the right hip on 01/15/2020. Further recommendations to follow
[2020-01-14 20:06] LABS: Glucose,Whole Blood 167 mg/dL (75-99)
[2020-01-14] MEDS: SERTRALINE 25 MG TAB PO SCH (21:27)
[2020-01-14] MEDS: HYDROcodone/APAP 5-325MG 1 EACH TAB PO PRN (23:43)
[2020-01-15] MEDS: SODIUM CHLORIDE 0.9% 1,000 ML IV SCH ×2 (05:17→23:35)
[2020-01-15 07:03] LABS: Glucose,Whole Blood 119 mg/dL (75-99)
[2020-01-15] MEDS ORDERED: LACTATED RINGERS 1,000 ML IV ONE (08:01)
[2020-01-15] MEDS ORDERED: MIDAZOLAM 2 MG/2 ML VIAL ONE (08:01)
[2020-01-15] MEDS ORDERED: fentaNYL (PF) 50 MCG/ML 2 ML AMP ONE (08:01)
[2020-01-15] MEDS ORDERED: KETAMINE 10 MG/ML 20 ML VIAL ONE (08:01)
[2020-01-15 08:15] LABS: HCT 37.5 % (39.0-53.0); HGB 12.1 gm/dL (13.0-17.5); MCH 29.8 pg (25.0-35.0); MCHC 32.3 g/dL (31.0-37.0); MCV 92.2 fL (80.0-100.0); Platelet Count 264 k/uL (150-450); RBC 4.07 m/uL (4.30-5.90); RDW 13.3 % (11.5-15.5); WBC 8.9 k/uL (3.8-10.6)
[2020-01-15] MEDS ORDERED: ceFAZolin 3,000 MG in SODIUM CHLORIDE 0.9% IRRIGATIO 3,000 ML IRRIGATION ONE (08:48)
--- NOTE | 2020-01-15 09:43 | P.OP ---
Date of Procedure: 01/15/20 Preoperative Diagnosis: Displaced right hip femoral neck fracture Postoperative Diagnosis: Displaced right hip femoral neck fracture Procedure(s) Performed: Direct anterior right total hip arthroplasty Implants: 1. Depuy Corail KA size 16 standard collar press-fit femoral stem 2. Depuy pinnacle 58 mm press-fit multi hole acetabular shell 3. Depuy pinnacle polyethylene acetabular liner neutral 36 mm ID 58 mm OD 4. Biolox delta ceramic femoral head +1.5 36 mm Anesthesia: spinal Surgeon: Emile Gongora Linen Controller #1: Bert Horta Estimated Blood Loss (ml): 30 Pathology: other (Femoral head) Condition: stable Disposition: PACU Indications for Procedure: 79-year-old patient seen with a displaced right femoral neck fracture. We discussed treatment options. I recommended direct anterior right total hip arthroplasty. Patient was agreeable. Consent was obtained. Operative Findings: See description of procedure Description of Procedure: The patient was taken to the operative suite. Patient underwent a spinal anesthetic by the department of anesthesia. Patient was then transferred to the [place] table. Patient was given preoperative IV antibiotics. Both lower extremities were placed in standard leg spars. The hip was then prepped and draped in the normal sterile orthopedic fashion. A standard anterior incision was made beginning 3 cm lateral and 1 cm distal to the ASIS extending 10 cm. Dissection was then carried down through the subcutaneous soft tissues down to the fascia overlying the tensor fascia garry. An incision was now made through the fascia. Careful dissection was taken down exposing the tensor fascia garry muscle. A Cobra retractor was now placed along the medial femoral neck and a second one along the lateral femoral neck. The venous circumflex vessels were now identified, cauterized and clipped. We identified the anterior hip capsule. An incision was made through the hip capsule along the lateral border. I performed a partial anterior capsulectomy. I immediately encountered the displaced femoral neck fracture. I evacuated the hematoma. I introduced a corkscrew into the femoral head. I did use a sagittal saw to make the appropriate cut just a little more distal to the fracture itself. The femoral head was now removed without difficulty. The extremity was now rotated to 45 of external rotation. It was locked in position. Residual labrum was now debrided out. 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 Serial reaming was performed of the acetabulum while Jameel BETANCOURT assisted holding an anterior retractor for exposure. Once we reached the appropriate size and a trial was position and fit nicely. The appropriate size was now chosen opened and made available. It was introduced into the acetabulum without difficulty. The C-arm/fluoroscopy was now brought into the operative field. We made sure we had a true AP pelvic view. We now under direct C-arm/fluoroscopy introduced into the acetabular component with appropriate version and inclination. I held the cup in appropriate position well Jameel BETANCOURT used a mallet to seat the acetabular component. I noted the component now to be well seated and stable. Acetabular cup introduce her was removed. The C-arm was pulled back. An appropriate liner was introduced and clicked into position. It was felt to be stable. At this point retractors were removed. The extremity was now placed into 120 external rotation with no traction. The leg was now dropped to the ground and adducted. Appropriate retractors were now positioned along the proximal femur. We also placed our femoral look into position. Additional capsular releasing was performed to gain access to the proximal femur. We now used a box osteotome. A canal finder was now utilized. Serial broaching was now performed with the assistance of Jameel BETANCOURT tapping the broaches down with a mallet while held the broach in appropriate rotation and position. This was done until we reached the appropriate size with good overall rotational stability. Appropriate calcar planing was performed. A trial head/neck was placed into position. The hip was now reduced. The C-arm/fluoroscopy was brought back into the operative field. A spot film was obtained of the nonoperative hip. A spot film was obtained of the trial components. Overlays were performed, we noted good overall alignment and positioning for determining leg length. The C-arm/fluoroscopy was pulled back. Retractors were repositioned and the hip was dislocated. The leg was again taken down to the ground and adducted. Appropriate retractors were repositioned as well as the femoral hook. All trial components were removed. The femoral implant was opened along with the femoral head. The femoral implant was introduced on the appropriate handle into our pre-broached area. I held the component position well Jameel BETANCOURT used a mallet to seat the femoral component. The femoral component was now noted to be well seated and stable.. The femoral head was introduced with good positioning and fixation noted. Retractors were now removed. The hip was now reduced. There appeared be good positioning of the hip confirmed on intraoperative fluoroscopy. Spot films were obtained to document this. Bipolar cautery had been utilized intermittently through the procedure for hemostasis. The wound was irrigated copiously with pulse lavage mechanical irrigation. The fascia was repaired with Vicryl suture. The subcutaneous soft tissues were repaired in layers with Vicryl suture. The skin was approximated with pernio/Dermabond. Sterile dressings were applied. Patient was then awakened, transferred to a bed and taken to recovery in stable condition. Jameel BETANCOURT assisted with the complex procedure.
--- NOTE | 2020-01-15 09:54 | XR ---
FLUOROSCOPY 26 seconds of fluoroscopy time were utilized during manipulation of the right hip. 1 images document the procedure.
--- NOTE | 2020-01-15 10:06 | P.PN ---
Subjective Progress Note Date: 01/15/20 Principal diagnosis: Right femoral neck fracture, hypertension, BPH, Parkinson disease, depression. This is an 79-year-old male patient of Dr. Davila with past medical hist ory of hypertension, benign prostatic hypertrophy, dementia, Parkinson's, previous left hip replacement with Dr. Reid. Patient lives at home with his . He states he was walking with his walker and a got caught any falling injuring his right hip with hip pain. He denies any needs that and denies loss of consciousness. Patient was brought into [facility] emergency center for evaluation. He was afebrile, heart rate 60, blood pressure 106/72, pulse ox 97% on room air. CBC was unremarkable with hemoglobin 13.1. His sodium 135, potassium 3.6, chloride 96, CO2 34, BUN 24 and creatinine 0.79. Initial blood sugar 207. Patient does not have history of diabetes. Liver fu nction tests were normal and coronavirus PCR negative. Chest x-ray shows no acute cardiopulmonary process. Right hip and pelvis x-ray revealed right Subcapital femoral neck fracture. CAT scan of the brain and cervical spine revealed no acute fracture dislocation of the cervical spine in no acute intracranial hemorrhage, mass effect or midline shift. [facility]opedics with plan for surgical intervention on Friday. 01/13: Patient continues to complain of right hip pain. He denies chest pain or shortness of breath. Patient's been afebrile, heart rate 62, blood pressure 137/70, pulse ox 98% on room air. Hemoglobin this morning 12.3. Nursing rela fred the patient had a small amount of bright red blood on his lips as morning thought that maybe he coughed this up. No further episodes. This will be monitored. Urbina catheter is in place. He is scheduled for surgery on Friday. 01/14: Patient is going for surgery as morning, he is hemodynamically stable hemoglobin has been stable vitals are under control and his pain is well controlled. Objective - Vital Signs Vital signs: Vital Signs Temp 97.2 F L 01/15/20 09:47 Pulse 71 01/15/20 09:47 Resp 16 01/15/20 09:47 BP 113/74 01/15/20 09:47 Pulse Ox 96 05/09/20 09:47 Intake & Output 01/14/20 01/15/20 01/15/20 18:59 06:59 18:59 Intake Total 240 800 501 Output Total 450 450 80 Balance -210 350 421 Intake: IV 501 Intake, IV Titration 800 Amount Sodium Chloride 0.9% 1, 400 000 ml @ 50 mls/hr IV . Q20H [facility] Rx#:[id number] cefTRIAXone 1 gm In 400 Sodium Chloride 0.9% 50 ml @ 100 mls/hr IVPB Q24HR [facility] Rx#:[id number] Oral 240 Output: Urine 450 450 50 Uretheral (Urbina) 450 Estimated Blood Loss 30 Other: Voiding Method Indwelling Catheter Indwelling Catheter Indwelling Catheter - Exam - Exam Review of Systems Constitutional: Denies anorexia, Denies chills, Denies fatigue, Denies fever, Denies lethargy, Denies malaise, Denies poor appetite, Denies weakness, Denies weight loss Eyes: denies blurred vision, denies pain Ears, nose, mouth and throat: Denies dysphagia, Denies headache, Denies nasal congestion, Denies nasal discharge, Denies sore throat, Denies vertigo Cardiovascular: Denies chest pain, Denies decreased exercise tolerance, Denies dyspnea on exertion, Denies edema, Denies leg edema, Denies lightheadedness, Denies shortness of breath, Denies syncope Respiratory: Denies cough, Denies cough with sputum, Denies dyspnea, Denies excessive sputum, Denies hemoptysis, Denies home oxygen, Denies respiratory infections, Denies wheezing Gastrointestinal: Denies abdominal pain, Denies diarrhea, Denies loss of appetite, Denies nausea, Denies vomiting Genitourinary: Denies dysuria, Denies urinary frequency, Denies urinary retention Musculoskeletal: Reports gait dysfunction, Denies muscle weakness, Denies myalgias Musculoskeletal: right: hip pain-continues Integumentary: Denies pruritus, Denies rash, Denies wounds Neurological: Denies change in mentation, Denies change in speech, Denies numbness, Denies seizures, Denies weakness Psychiatric: Denies anxiety, Denies depression Endocrine: Denies fatigue, Denies weight change Physical examination Gen: This is a 79-year-old thin male. Patient is resting in bed and appears in no acute distress. HEENT: Head is atraumatic, normocephalic. Pupils equal, round. Sclerae is an icteric. NECK: Supple. No JVD. No lymphadenopathy. No thyromegaly. LUNGS: Clear to auscultation. No wheezes or rhonchi. No intercostal retractions. HEART: Regular rate and rhythm. No murmur. ABDOMEN: Soft. Bowel sounds are present. No masses. No tenderness. EXTREMITIES: No pedal edema. No calf tenderness. Right lower extremity is shortened and externally rotated. NEUROLOGICAL: Patient is awake, alert and oriented x3. Cranial nerves 2 through 12 are grossly intact. - Labs CBC & Chem 7: 01/15/20 07:35 01/13/20 06:43 Labs: Abnormal Lab Results - Last 24 Hours (Table) 01/14/20 01/15/20 01/15/20 Range/Units 20:02 07:02 07:35 RBC 4.07 L (4.30-5.90) m/uL Hgb 12.1 L (13.0-17.5) gm/dL Hct 37.5 L (39.0-53.0) % POC Glucose (mg/dL) 167 H 119 H (75-99) mg/dL Microbiology - Last 24 Hours (Table) 01/13/20 18:09 Urine Culture - Final Urine,Voided Assessment and Plan Assessment: 1 right hip fracture: Patient is going for surgery with Dr. Gongora today, pain is well managed patient is hemodynamically stable. 2 Parkinson disease: Continue Sinemet tremor are well controlled this point. 3 BPH: Will watch patient for any urinary retention continue Flomax and continue catheter this point. 4 depression: Has been on Zoloft 25 mg daily. 6 chronic edema: Has been on hydrochlorothiazide. 7 hypertension: Remain on amlodipine 5 mg daily. 8 UTI: UA was very positive patient remain on Rocephin 1 g a day at this point we'll continue medication until after surgery. 9 pain management: Patient remain on morphine 4 mg every 4 hours as needed will switch him to oral hydrocodone after surgery. CODE STATUS: Full code.
[2020-01-15] MEDS: LACTOBACILLUS ACIDOPH & BULGAR 1 EACH PACKET PO SCH (11:07)
[2020-01-15] MEDS: HYDROCHLOROTHIAZIDE 25 MG TAB PO SCH (11:07)
[2020-01-15] MEDS: amLODIPine 5 MG TAB PO SCH (11:07)
[2020-01-15 11:33] LABS: Glucose,Whole Blood 129 mg/dL (75-99)
[2020-01-15] MEDS: TAMSULOSIN 0.4 MG CAP.ER.24H PO SCH (11:54)
[2020-01-15] MEDS: CARBIDOPA-LEVODOPA ER 50-200MG 1 EACH TABLET.ER PO SCH (11:54)
[2020-01-15 16:25] LABS: Glucose,Whole Blood 244 mg/dL (75-99)
[2020-01-15 20:21] LABS: Glucose,Whole Blood 245 mg/dL (75-99)
[2020-01-15] MEDS: ACETAMINOPHEN TAB 325 MG TAB PO PRN (20:30)
[2020-01-15] MEDS: SERTRALINE 25 MG TAB PO SCH (20:31)
--- NOTE | 2020-01-15 21:03 | XR ---
EXAMINATION TYPE: XR chest 1V DATE OF EXAM: 01/15/2020 HISTORY: Shortness of breath. COMPARISON: 01/12/2020 TECHNIQUE: Single view of the chest is submitted. FINDINGS: Demonstrated are scattered senescent parenchymal change. There is no evidence for focal infiltrate. The heart is stable. Hilar and mediastinal structures are within normal limits. Degenerative changes are seen of the dorsal spine. IMPRESSION: 1. Chronic changes without evidence for acute pulmonary disease.
[2020-01-16 08:43] LABS: Basophils % (A) 0 %; Eosinophils % (A) 0 %; HCT 33.6 % (39.0-53.0); Lymphocytes # (A) 0.3 k/uL (1.0-4.8); Lymphocytes % (A) 3 %; MCH 30.2 pg (25.0-35.0); MCHC 32.8 g/dL (31.0-37.0); Monocytes # (A) 0.5 k/uL (0-1.0); Monocytes % (A) 6 %; Neutrophils # (A) 7.4 k/uL (1.3-7.7); Neutrophils % (A) 89 %; Platelet Count 324 k/uL (150-450); RBC 3.66 m/uL (4.30-5.90); RDW 13.3 % (11.5-15.5); WBC 8.3 k/uL (3.8-10.6)
[2020-01-16] MEDS: amLODIPine 5 MG TAB PO SCH (08:50)
[2020-01-16] MEDS: CARBIDOPA-LEVODOPA ER 50-200MG 1 EACH TABLET.ER PO SCH (08:50)
[2020-01-16] MEDS: LACTOBACILLUS ACIDOPH & BULGAR 1 EACH PACKET PO SCH (08:51)
[2020-01-16] MEDS: TAMSULOSIN 0.4 MG CAP.ER.24H PO SCH (08:51)
[2020-01-16] MEDS: ACETAMINOPHEN TAB 325 MG TAB PO PRN ×2 (08:51→20:18)
[2020-01-16] MEDS: HEPARIN SODIUM,PORCINE 5,000 UNIT/ML 1 ML VIAL SQ SCH ×2 (08:51→20:18)
[2020-01-16] MEDS: HYDROCHLOROTHIAZIDE 25 MG TAB PO SCH (08:51)
[2020-01-16 09:00] LABS: ALT 20 U/L (4-49); AST 50 U/L (17-59); African American GFR (CKD) >90 (>60 ml/min/1.73 sqM); Albumin 2.9 g/dL (3.5-5.0); Alkaline Phosphatase 58 U/L (38-126); Anion Gap 6 mmol/L; Blood Urea Nitrogen 20 mg/dL (9-20); Calcium 8.8 mg/dL (8.4-10.2); Carbon Dioxide 31 mmol/L (22-30); Chloride 101 mmol/L (98-107); Glucose 189 mg/dL (74-99); Non-African American GFR(CKD) 89 (>60 ml/min/1.73 sqM); Potassium 3.3 mmol/L (3.5-5.1); Sodium 138 mmol/L (137-145); Total Bilirubin 0.6 mg/dL (0.2-1.3); Total Protein 5.7 g/dL (6.3-8.2)
--- NOTE | 2020-01-16 09:08 | P.PN ---
Subjective Progress Note Date: 01/16/20 Principal diagnosis: Right femoral neck fracture, hypertension, BPH, Parkinson disease, depression. This is an 79-year-old male patient of Dr. Davila with past medical hist ory of hypertension, benign prostatic hypertrophy, dementia, Parkinson's, previous left hip replacement with Dr. Reid. Patient lives at home with his . He states he was walking with his walker and a got caught any falling injuring his right hip with hip pain. He denies any needs that and denies loss of consciousness. Patient was brought into [facility] emergency center for evaluation. He was afebrile, heart rate 60, blood pressure 106/72, pulse ox 97% on room air. CBC was unremarkable with hemoglobin 13.1. His sodium 135, potassium 3.6, chloride 96, CO2 34, BUN 24 and creatinine 0.79. Initial blood sugar 207. Patient does not have history of diabetes. Liver fu nction tests were normal and coronavirus PCR negative. Chest x-ray shows no acute cardiopulmonary process. Right hip and pelvis x-ray revealed right Subcapital femoral neck fracture. CAT scan of the brain and cervical spine revealed no acute fracture dislocation of the cervical spine in no acute intracranial hemorrhage, mass effect or midline shift. Patient was admitted to the [facility] floor under orthopedics with plan for surgical intervention on Friday. 01/13: Patient continues to complain of right hip pain. He denies chest pain or shortness of breath. Patient's been afebrile, heart rate 62, blood pressure 137/70, pulse ox 98% on room air. Hemoglobin this morning 12.3. Nursing rela fred the patient had a small amount of bright red blood on his lips as morning thought that maybe he coughed this up. No further episodes. This will be monitored. U[place]ina catheter is in place. He is scheduled for surgery on Friday. 01/14: Patient is going for surgery as morning, he is hemodynamically stable hemoglobin has been stable vitals are under control and his pain is well controlled. 01/15: Patient had surgery yesterday successfully doing well is very stable hemodynamically, his hemiarthroplasty yesterday 1 successfully with no complication. Patient had low-grade temperature this morning still been treated for UTI with Rocephin. No other sign of infection at this point. Patient to start physical therapy today and most likely will require to go to rehab in the next 24-48 hours. Objective - Vital Signs Vital signs: Vital Signs Temp 98.8 F 01/16/20 01:33 Pulse 70 01/16/20 01:33 Resp 16 01/16/20 01:33 BP 116/71 01/16/20 01:33 Pulse Ox 97 01/16/20 01:33 Intake & Output 01/15/20 01/16/20 01/16/20 18:59 06:59 18:59 Intake Total 1451 200 Output Total 80 700 Balance 1371 -500 Intake: IV 901 Intake, IV Titration 550 200 Amount Sodium Chloride 0.9% 1, 500 200 000 ml @ 50 mls/hr IV . Q20H [facility] Rx#:[id number] cefTRIAXone 1 gm In 50 Sodium Chloride 0.9% 50 ml @ 100 mls/hr IVPB ONCE STA Rx#:[id number] Output: Urine 50 700 Estimated Blood Loss 30 Other: Voiding Method Indwelling Catheter Indwelling Catheter - Exam - Exam Review of Systems Constitutional: Denies anorexia, Denies chills, Denies fatigue, Denies fever, Denies lethargy, Denies malaise, Denies poor appetite, Denies weakness, Denies weight loss Eyes: denies blurred vision, denies pain Ears, nose, mouth and throat: Denies dysphagia, Denies headache, Denies nasal congestion, Denies nasal discharge, Denies sore throat, Denies vertigo Cardiovascular: Denies chest pain, Denies decreased exercise tolerance, Denies dyspnea on exertion, Denies edema, Denies leg edema, Denies lightheadedness, Denies shortness of breath, Denies syncope Respiratory: Denies cough, Denies cough with sputum, Denies dyspnea, Denies excessive sputum, Denies hemoptysis, Denies home oxygen, Denies respiratory infections, Denies wheezing Gastrointestinal: Denies abdominal pain, Denies diarrhea, Denies loss of appetite, Denies nausea, Denies vomiting Genitourinary: Denies dysuria, Denies urinary frequency, Denies urinary retention Musculoskeletal: Reports gait dysfunction, Denies muscle weakness, Denies myalgias Musculoskeletal: right: hip pain-continues Integumentary: Denies pruritus, Denies rash, Denies wounds Neurological: Denies change in mentation, Denies change in speech, Denies numbness, Denies seizures, Denies weakness Psychiatric: Denies anxiety, Denies depression Endocrine: Denies fatigue, Denies weight change Physical examination Gen: This is a 79-year-old thin male. Patient is resting in bed and appears in no acute distress. HEENT: Head is atraumatic, normocephalic. Pupils equal, round. Sclerae is anicteric. NECK: Supple. No JVD. No lymphadenopathy. No thyromegaly. LUNGS: Clear to auscultation. No wheezes or rhonchi. No intercostal retractions. HEART: Regular rate and rhythm. No murmur. ABDOMEN: Soft. Bowel sounds are present. No masses. No tenderness. EXTREMITIES: No pedal edema. No calf tenderness. Right lower extremity is shortened and externally rotated. NEUROLOGICAL: Patient is awake, alert and oriented x3. Cranial nerves 2 through 12 are grossly intact. - Labs CBC & Chem 7: 01/16/20 08:17 01/16/20 08:17 Labs: Abnormal Lab Results - Last 24 Hours (Table) 01/15/20 01/15/20 01/15/20 Range/Units 11:30 16:24 20:19 RBC (4.30-5.90) m/uL Hgb (13.0-17.5) gm/dL Hct (39.0-53.0) % Lymphocytes # (1.0-4.8) k/uL Potassium (3.5-5.1) mmol/L Carbon Dioxide (22-30) mmol/L Glucose (74-99) mg/dL POC Glucose (mg/dL) 129 H 244 H 245 H (75-99) mg/dL Total Protein (6.3-8.2) g/dL Albumin (3.5-5.0) g/dL 01/16/20 01/16/20 Range/Units 08:17 08:17 RBC 3.66 L (4.30-5.90) m/uL Hgb 11.0 L (13.0-17.5) gm/dL Hct 33.6 L (39.0-53.0) % Lymphocytes # 0.3 L (1.0-4.8) k/uL Potassium 3.3 L (3.5-5.1) mmol/L Carbon Dioxide 31 H (22-30) mmol/L Glucose 189 H (74-99) mg/dL POC Glucose (mg/dL) (75-99) mg/dL Total Protein 5.7 L (6.3-8.2) g/dL Albumin 2.9 L (3.5-5.0) g/dL Assessment and Plan Assessment: 1 right hip fracture: Patient had hemiarthroplasty history with Dr. Gongora successfully with no major complication is doing very well and more stable today. 2 Parkinson disease: Continue Sinemet tremor are well controlled this point. 3 UTI: UA was very positive patient remain on Rocephin 1 g a day at this point we'll continue medication until after surgery. He still having mild symptoms of urinary tract infection continue Rocephin for now. 4 depression: Has been on Zoloft 25 mg daily. 6 chronic edema: Has been on hydrochlorothiazide. 7 hypertension: Remain on amlodipine 5 mg daily. 8 BPH: Will watch patient for any urinary retention continue Flomax and continue catheter this point. 9 pain management: Patient remain on morphine 4 mg every 4 hours as needed will switch him to oral hydrocodone after surgery. CODE STATUS: Full code. Discharge planning: Continue PTOT and possible need to go to rehab on Friday or Friday.
--- NOTE | 2020-01-16 14:53 | P.PN ---
Progress Note - Text Progress Note Date: 01/16/20 Patient was seen in bed. He does have some discomfort in the right hip area. He has no new complaints. His incision appear stable. Log rolling of the right hip is with no pain. His distal neurovascular exam is intact. Homans and Elpidio are both negative. Impression: Status post direct anterior right total hip arthroplasty for femoral neck fx Plan: Physical therapy for walker ambulation Medical management DVT prophylaxis Discharge planning
[2020-01-16] MEDS: SODIUM CHLORIDE 0.9% 1,000 ML IV SCH (20:19)
[2020-01-16] MEDS: SERTRALINE 25 MG TAB PO SCH (20:19)
[2020-01-17] MEDS: CARBIDOPA-LEVODOPA ER 50-200MG 1 EACH TABLET.ER PO SCH (08:00)
[2020-01-17] MEDS: HYDROCHLOROTHIAZIDE 25 MG TAB PO SCH (08:00)
[2020-01-17] MEDS: TAMSULOSIN 0.4 MG CAP.ER.24H PO SCH (08:00)
[2020-01-17] MEDS: amLODIPine 5 MG TAB PO SCH (08:00)
[2020-01-17] MEDS: HEPARIN SODIUM,PORCINE 5,000 UNIT/ML 1 ML VIAL SQ SCH (08:01)
[2020-01-17] MEDS: LACTOBACILLUS ACIDOPH & BULGAR 1 EACH PACKET PO SCH (08:01)
[2020-01-17 08:15] VITALS: RESP 16
[2020-01-17] MEDS ORDERED: Acetaminophen-Codeine 300-30mg TAB PO PRN (08:15)
[2020-01-17] MEDS: ACETAMINOPHEN TAB 325 MG TAB PO PRN (08:20)
--- NOTE | 2020-01-17 11:46 | P.PN ---
Subjective Progress Note Date: 01/17/20 This is an 79-year-old male patient of Dr. Davila with past medical history of hypertension, benign prostatic hypertrophy, dementia, Parkinson's, previous left hip replacement with Dr. Reid. Patient lives at home with his . He states he was walking with his walker and a got caught any falling injuring his right hip with hip pain. He denies any needs that and denies loss of consciousness. Patient was brought into [facility] emergency center for evaluation. He was afebrile, heart rate 60, blood pressure 106/72, pulse ox 97% on room air. CBC was unremarkable with hemoglobin 13.1. His sodium 135, potassium 3.6, chloride 96, CO2 34, BUN 24 and creatinine 0.79. Initial blood sugar 207. Patient does not have history of diabetes. Liver function tests were normal and coronavirus PCR negative. Chest x-ray shows no acute cardiopulmonary process. Right hip and pelvis x-ray revealed right Subcapital femoral neck fracture. CAT scan of the brain and cervical spine revealed no acute fracture dislocation of the cervical spine in no acute intracranial hemorrhage, mass effect or midline shift. Patient was admitted to the [facility] floor under orthopedics with plan for surgical intervention on Friday. 01/13: Patient continues to complain of right hip pain. He denies chest pain or shortness of breath. Patient's been afebrile, heart rate 62, blood pressure 137/70, pulse ox 98% on room air. Hemoglobin this morning 12.3. Nursing relates the patient had a small amount of bright red blood on his lips as morning thought that maybe he coughed this up. No further episodes. This will be monitored. Urbina catheter is in place. He is scheduled for surgery on . 01/14: Patient is going for surgery as morning, he is hemodynamically stable hemoglobin has been stable vitals are under control and his pain is well controlled. 01/15: Patient had surgery yesterday successfully doing well is very stable hemodynamically, his hemiarthroplasty yesterday 1 successfully with no complication. Patient had low-grade temperature this morning still been treated for UTI with Rocephin. No other sign of infection at this point. Patient to start physical therapy today and most likely will require to go to rehab in the next 24-48 hours. 01/16: The patient has had some confusion but this is improved this morning. He is scheduled for discharge to subacute rehab today. We recommend changing pain medication over to Tylenol No. 3 as needed. Patient to receive Metamucil this morning as he has not had a bowel movement. Patient has been afebrile, heart rate 75, blood pressure 10/01/1959, pulse ox 97% on room air. Yesterday's lab work revealed potassium of 3.3 and patient's blood pressure is on the low side, hydrochlorothiazide will be discontinued. Medication reconciliation has been reviewed. Patient is cleared medically for discharge and will be followed at the alf by Dr. Baptiste. Objective - Vital Signs Vital signs: Vital Signs Temp 98.8 F 01/16/20 23:00 Pulse 75 01/16/20 23:00 Resp 20 01/16/20 23:00 BP 111/66 01/16/20 23:00 Pulse Ox 96 01/16/20 23:00 Intake & Output 01/16/20 01/17/20 01/17/20 18:59 06:59 18:59 Intake Total 250 700 Output Total 800 Balance 250 -100 Weight 56.699 kg Intake: Intake, IV Titration 250 Amount Sodium Chloride 0.9% 1, 200 000 ml @ 50 mls/hr IV . Q20H [facility] Rx#:[id number] cefTRIAXone 1 gm In 50 Sodium Chloride 0.9% 50 ml @ 100 mls/hr IVPB Q24HR [facility] Rx#:[id number] Oral 700 Output: Urine 800 Uretheral (Urbina) 400 Other: Voiding Method Indwelling Catheter Indwelling Catheter - Labs CBC & Chem 7: 01/16/20 08:17 01/16/20 08:17 Labs: Abnormal Lab Results - Last 24 Hours (Table) 01/16/20 01/16/20 Range/Units 08:17 08:17 RBC 3.66 L (4.30-5.90) m/uL Hgb 11.0 L (13.0-17.5) gm/dL Hct 33.6 L (39.0-53.0) % Lymphocytes # 0.3 L (1.0-4.8) k/uL Potassium 3.3 L (3.5-5.1) mmol/L Carbon Dioxide 31 H (22-30) mmol/L Glucose 189 H (74-99) mg/dL Total Protein 5.7 L (6.3-8.2) g/dL Albumin 2.9 L (3.5-5.0) g/dL Assessment and Plan Plan: 1. Right femoral neck fracture. Patient is been admitted on the care of Dr. Gongora status post right total hip arthroplasty on January 14. I'll discontinue [place] and morphine, start Tylenol 3 as needed. PT and OT. Incentive spirometry to reduce incidence of atelectasis and hospital-acquired pneumonia. 2. Hypertension. Continue hydrochlorothiazide 25 mg daily, amlodipine 5 mg daily. 3. Benign prostatic hypertrophy. Monitor for urinary retention. Continue Flomax 0.4 mg daily. 4. Parkinson's with dementia. Continue Sinemet at home dose. 5. Skin cancer status post resection right scalp area. 6. Recurrent depression. Continue Zoloft 25 mg at bedtime. 7. DVT prophylaxis. Heparin subcu. 8. GI prophylaxis. Pepcid. 9. COVID-19 infection of present. Discharge plan: X[place]itl on the care of Dr. Baptiste. Impression and plan of care have been directed as dictated by the signing physician. Desi Eastman nurse practitioner acting as scribe for signing phys peteran.
--- NOTE | 2020-01-17 14:10 | P.DS ---
Providers Date of admission: 01/12/20 18:29 Expected date of discharge: 01/17/20 Attending physician: Emile Gongora Consults: 01/12/20 18:30 Consult Physician Urgent Consulting Provider: Gissel Roper Consult Reason/Comments: right hip fracture, fall, medical management Do you want consulting provider notified?: Yes Primary care physician: Keanu Davila [place] Hospital Course: Date of admission: 01/12/2020 Date of discharge: 01/17/2020 Admission diagnosis: Right femoral neck fracture Discharge diagnosis: Status post direct anterior right total hip arthroplasty Attending physician: Dr. Gongora Surgical procedures: Direct anterior right total hip arthroplasty Brief history: Patient is a 79-year-old male who was admitted to [facility] on 01/12/2020 after falling at home. Was determined he had a right femoral neck fracture, he was admitted under orthopedic care with plan for surgical intervention. Internal medicine was placed on consult for management and clearance for surgery. Patient underwent surgery on 01/15/2020. Hospital course: Details of patient's surgery can be found in operative report. Patient tolerated the procedure well and was subsequently transported to orthopedic floor. Patient's orthopeidc and medical care was provided daily. Patient had daily laboratory tests performed for evaluation of overall blood counts. Patient had daily physical therapy to include strengthening range of motion as well as education with walker ambulation. Patient was treated with heparin for their postoperative DVT prophylaxis during their inpatient stay. Patient was noted to have a relatively uneventful postoperative course. Patient reported satisfactory pain control with oral pain medications by postoperative day 0. Patient showed satisfactory progress with physical therapy. Patient moved steadily through the program and had no difficulty meeting the goals by postoperative day 2. Given patient's otherwise satisfactory course and having met physical therapy goals, plan is to discharge patient rehab on postoperative day 2. Discharge condition/disposition: Patient will be discharged rehab in stable condition. Discharge medications: Instructions are given on resumption of patient's normal daily medications per primary care recommendation, in addition patient will be prescribed Tylenol 3, ciprofloxacin 500 mg, heparin 5000 units, Colace 100 mg. Discharge instructions: 1. Wound care and infection precautions, keep incision dry and covered while showering, no lotions, creams, moisturizers. No soaking, tubs, pools, hottubs. Do not scrub over the incision. 2. Weight-bear as tolerated with walker / cane until follow-up. 3. Ice and elevate when necessary. Do not exceed 20 minutes per hour with ice pack. 4. Utilize compression sleeve until seen at first follow up appointment. 5. Visiting nursing care. 6. Home physical therapy. 7. Pain meds and anticoagulants per prescription. 8. Pain medication has potential to cause constipation. Increase oral fluid and fiber intake. Contact primary care provider if you have not had a bowel movement within 48 hours after discharge 9. No anti-inflammatory medication until discussed at first post operative visit, this including Motrin, Aleve, Mobic, Diclofenac. 10. Follow up in office at 2 weeks postop with Jameel Horta PA-C 11. Follow up with your primary care doctor 7-10 days after discharge. 12. Contact [facility] with any questions, . Procedures: Direct anterior right total hip arthroplasty Patient Condition at Discharge: Stable Plan - Discharge Summary Discharge Rx Participant: No New Discharge Prescriptions: New Ciprofloxacin HCl [Cipro] 500 mg PO Q12HR #18 tablet Docusate [Colace] 100 mg PO DAILY #30 capsule Acetaminophen with Codeine [Tylenol w/codeine #3] 1 tab PO Q6H PRN #28 tab PRN Reason: Pain Heparin Sodium,Porcine [Heparin Sodium] 5,000 unit SQ Q12HR #28 vial Continue amLODIPine [Norvasc] 5 mg PO DAILY Tamsulosin HCl [Flomax] 0.4 mg PO DAILY Sertraline HCl [Zoloft] 1 tab PO HS L.acidoph,Paracasei, B.lactis [Probiotic] 1 cap PO DAILY Psyllium Husk (with Sugar) [Metamucil Powder] 11 gm PO DAILY PRN PRN Reason: Constipation Carbidopa/Levodopa [Sinemet CR 50-200 mg] 1 tab PO QAM Carbidopa/Levodopa [Sinemet CR 50-200 mg] 0.5 each PO DAILY Discontinued Hydrochlorothiazide [Hydrodiuril] 25 mg PO DAILY Discharge Medication List Tamsulosin HCl [Flomax] 0.4 mg PO DAILY 04/10/17 [History] amLODIPine [Norvasc] 5 mg PO DAILY 04/10/17 [History] Sertraline HCl [Zoloft] 1 tab PO HS 02/26/18 [History] Carbidopa/Levodopa [Sinemet CR 50-200 mg] 0.5 each PO DAILY 01/12/20 [History] Carbidopa/Levodopa [Sinemet CR 50-200 mg] 1 tab PO QAM 01/12/20 [History] L.acidoph,Paracasei, B.lactis [Probiotic] 1 cap PO DAILY 01/12/20 [History] Psyllium Husk (with Sugar) [Metamucil Powder] 11 gm PO DAILY PRN 01/12/20 [History] Acetaminophen with Codeine [Tylenol w/codeine #3] 1 tab PO Q6H PRN #28 tab 01/17/20 [Rx] Ciprofloxacin HCl [Cipro] 500 mg PO Q12HR #18 tablet 01/17/20 [Rx] Docusate [Colace] 100 mg PO DAILY #30 capsule 01/17/20 [Rx] Heparin Sodium,Porcine [Heparin Sodium] 5,000 unit SQ Q12HR #28 vial 01/17/20 [Rx] Follow up Appointment(s)/Referral(s): Keanu Davila MD [Primary Care Provider] - 1 Week (After discharge from [facility]) Bert Horta PAC [PHYSICIAN [employer]] - 2 Weeks Activity/Diet/Wound Care/Special Instructions: Orthopedic Discharge Instructions: 1. Wound care and infection precautions, keep incision dry and covered while showering, no lotions, creams, moisturizers. No soaking, pools, hot tubs. Do not scrub over incision. 2. Weight-bear as tolerated with walker / cane until follow-up. 3. Ice and elevate when necessary. Do not exceed 20 minutes per hour with ice pack. 4. Utilize compression sleeve until seen at first follow up appointment. 5. Pain meds and anticoagulants per prescription. 6. Pain medication has potential to cause constipation. Increase oral fluid and fiber intake. Contact primary care provider if you have not had a bowel movement within 48 hours after discharge. 7. No anti-inflammatory medication until discussed at first post operative visit, this including Motrin, Aleve, Mobic, Diclofenac. 8. Follow up in office at 2 weeks postop with Jameel Horta PA-C 9. Follow up with your primary care doctor 7-10 days after discharge. 10. Contact [facility] with any questions, . Discharge Disposition: TRANSFER TO SNF/F
--- NOTE | 2020-01-17 14:12 | P.PN ---
Subjective Progress Note Date: 01/17/20 Principal diagnosis: Status post direct anterior right total hip arthroplasty Patient evaluated today at bedside. He is resting comfortably in his hospital chair. According to internal medicine, there was some confusion earlier this morning. They did change his pain medication from [place] to Tylenol 3. No significant discomfort of the right lower extremity at this time. Objective - Vital Signs Vital signs: Vital Signs Temp 98.1 F 01/17/20 07:11 Pulse 75 01/17/20 07:11 Resp 16 01/17/20 07:11 BP 124/58 01/17/20 07:11 Pulse Ox 97 01/17/20 07:11 Intake & Output 01/16/20 01/17/20 01/17/20 18:59 06:59 18:59 Intake Total 250 700 350 Output Total 800 Balance 250 -100 350 Weight 56.699 kg Intake: Intake, IV Titration 250 350 Amount Sodium Chloride 0.9% 1, 200 300 000 ml @ 50 mls/hr IV . Q20H [facility] Rx#:[id number] cefTRIAXone 1 gm In 50 50 Sodium Chloride 0.9% 50 ml @ 100 mls/hr IVPB Q24HR [facility] Rx#:[id number] Oral 700 Output: Urine 800 Uretheral (Urbina) 400 Other: Voiding Method Indwelling Catheter Indwelling Catheter Indwelling Catheter - Exam Right lower extremity: Incision is clean, dry, and intact. The exofin fusion tape is in good condition. There is minimal soft tissue swelling and ecchymosis surrounding the medial and lateral aspects of the incision. Calf is soft, no tenderness with palpation. Plantar flexion, dorsiflexion, EHL, FHL are intact. Sensory exam to light touch throughout the extremity is intact, dorsal pedis pulses 2+. - Labs CBC & Chem 7: 01/16/20 08:17 01/16/20 08:17 Assessment and Plan Assessment: Status post direct anterior right total hip arthroplasty Plan: Pain control, Tylenol 3 discharge GI and DVT prophylaxis, heparin 5000 units every 12 hours 28 days Weight-bear as tolerated, physical therapy once at rehab daily Keep incision dry and covered while showering Plan for [facility]-up at [facility] 2 weeks Time with Patient: Less than 30
[2020-01-17 15:39] VITALS: BP 105/64; PULSE 73; TEMP 98.3
== END 2020-01-17 15:19 | DRG 470 ==
LOC: EC 15:20 → 4SSUR 18:29
PROVIDERS: ADMIT Orthopaedic Surgery; ATTEND Orthopaedic Surgery
PROC: 0SR90JA Replacement of Right Hip Joint with Synthetic Substitute, Uncemented, Open Approach (ICD-10-PCS; principal; 2020-01-15 08:00)
DX: S72.011A Unspecified intracapsular fracture of right femur, initial encounter for closed fracture (principal); F33.9 Major depressive disorder, recurrent, unspecified; N39.0 Urinary tract infection, site not specified; S09.90XA Unspecified injury of head, initial encounter; F02.80 Dementia in other diseases classified elsewhere, unspecified severity, without behavioral disturbance, psychotic disturbance, mood disturbance, and anxiety; G20 Parkinson's disease; Z11.59 Encounter for screening for other viral diseases; I10 Essential (primary) hypertension; N40.0 Benign prostatic hyperplasia without lower urinary tract symptoms; R60.9 Edema, unspecified; Z96.642 Presence of left artificial hip joint; Z79.899 Other long term (current) drug therapy; Z85.828 Personal history of other malignant neoplasm of skin; Z80.1 Family history of malignant neoplasm of trachea, bronchus and lung; Z80.8 Family history of malignant neoplasm of other organs or systems; W01.0XXA Fall on same level from slipping, tripping and stumbling without subsequent striking against object, initial encounter; Y92.009 Unspecified place in unspecified non-institutional (private) residence as the place of occurrence of the external cause
CPT/HCPCS: 36415; 70450; 71045; 71046; 72125; 73501; 73502; 80048; 80053; 81001; 85025; 85027; 85610; 85730; 87086; 87635; 88305; 88311; 93005; 96374; 99285

== ENCOUNTER 2020-01-27 21:40 | Inpatient (IN) | payer MEDICARE, BC ==
[2020-01-27] MEDS ORDERED: SODIUM CHLORIDE 0.9% 500 ML 500 ML IV STA (22:01)
[2020-01-27 22:17] LABS: Basophils % (A) 0 %; Eosinophils # (A) 0.1 k/uL (0-0.7); Eosinophils % (A) 1 %; HCT 34.4 % (39.0-53.0); HGB 10.9 gm/dL (13.0-17.5); Hypochromasia Slight; Lymphocytes # (A) 0.4 k/uL (1.0-4.8); Lymphocytes % (A) 2 %; MCH 29.6 pg (25.0-35.0); MCHC 31.8 g/dL (31.0-37.0); Mean Platelet Volume 7.2; Monocytes # (A) 0.6 k/uL (0-1.0); Monocytes % (A) 4 %; Neutrophils # (A) 13.9 k/uL (1.3-7.7); Neutrophils % (A) 93 %; Platelet Count 505 k/uL (150-450); RDW 14.6 % (11.5-15.5); WBC 14.9 k/uL (3.8-10.6)
[2020-01-27 22:30] LABS: Albumin 3.4 g/dL (3.5-5.0); Calcium 8.5 mg/dL (8.4-10.2); Magnesium 2.3 mg/dL (1.6-2.3); Phosphorus 4.8 mg/dL (2.5-4.5); Potassium 5.5 mmol/L (3.5-5.1); Total Bilirubin 1.4 mg/dL (0.2-1.3); Total Protein 6.5 g/dL (6.3-8.2)
[2020-01-27 22:37] LABS: Appearance,Urine Clear (Clear); Bacteria,Urine Rare /hpf; Bilirubin,Urine Negative (Negative); Blood,Urine Moderate (Negative); Color,Urine Yellow; Glucose,Urine (UA) Negative (Negative); Hyaline Casts,Urine 4 /lpf (0-2); Ketones,Urine Negative (Negative); Leukocyte Esterase,Urine Trace (Negative); Mucus,Urine Rare /hpf; Nitrite,Urine Negative (Negative); Protein,Urine 2+ (Negative); RBC,Urine >182 /hpf (0-5); Specific Gravity,Urine 1.016 (1.001-1.035); Urobilinogen,Urine <2.0 mg/dL (<2.0); WBC,Urine 27 /hpf (0-5)
--- NOTE | 2020-01-27 22:44 | XR ---
EXAMINATION TYPE: XR chest 1V DATE OF EXAM: 01/27/2020 COMPARISON: 01/15/2020 HISTORY: Weakness TECHNIQUE: Single view FINDINGS: heart is normal. There is a minimal infiltrate left lower lobe. There is mild blunting left costophre valerie angle. The other lung chisholm are clear. There is no heart failure. There are no hilar masses. IMPRESSION: There is a new mild infiltrate behind the heart in the left lower lobe compared to old ex am. Normal heart.
[2020-01-27 22:50] LABS: INR 1.1 (<1.2); Partial Thromboplastin Time 24.9 sec (22.0-30.0); Prothrombin Time 10.9 sec (9.0-12.0)
--- NOTE | 2020-01-27 22:50 | ED ---
General Adult HPI - General Chief complaint: Weakness Stated complaint: Weakness Time Seen by Provider: 01/27/20 21:42 Source: patient, RN notes reviewed, old records reviewed Mode of arrival: EMS - History of Present Illness Initial comments: 79-year-old male patient past history of dementia presents to ED after sent from rehab facility for approximately 3 days of generalized weakness. Patient denies any acute platelets at this time. Denies any chest pain shortness breath abd ominal pain nausea vomiting or diarrhea. reports that approximately 2 years ago patient had a fall and had a left hip fracture for which she he had a hip replacement and was then discharged to tomorrow would. Patient stated he has not been drinking very much water. Laboratory investigations were drawn by primary care provider and did display acute renal failure. Denies any complaints. Systemic: Pt denies fatigue, fever/chills, rash. Pt denies weakness, night sweats, weight loss. Neuro: Pt denies headache, visual disturbances, syncope or pre-syncope. HEENT: Pt denies ocular discharge or irritation, otalgia, rhinorrhea, pharyngitis or notable lymphadenopathy. Cardiopulmonary: Pt denies chest pain, SOB, heart palpitations, dyspnea on exertion. Abdominal/GI: Pt denies abdominal pain, n/v/d. : Pt denies dysuria, burning w/ urination, frequency/urgency. Denies new onset urinary or bowel incontinence. MSK: Pt denies myalgia, loss of strength or function in extremities. Neuro: Pt denies new onset weakness, paresthesias. - Related Data Home Medications Medication Instructions Recorded Confirmed Tamsulosin HCl [Flomax] 0.4 mg PO DAILY 04/10/17 01/12/20 amLODIPine [Norvasc] 5 mg PO DAILY 04/10/17 01/12/20 Sertraline HCl [Zoloft] 1 tab PO HS 02/26/18 01/12/20 Carbidopa/Levodopa [Sinemet CR 0.5 each PO DAILY 01/12/20 01/12/20 50-200 mg] Carbidopa/Levodopa [Sinemet CR 1 tab PO QAM 01/12/20 01/12/20 50-200 mg] L.acidoph,Paracasei, B.lactis 1 cap PO DAILY 01/12/20 01/12/20 [Probiotic] Psyllium Husk (with Sugar) 11 gm PO DAILY PRN 01/12/20 01/12/20 [Metamucil Powder] Previous Rx's Medication Instructions Recorded Acetaminophen with Codeine 1 tab PO Q6H PRN #28 tab 01/17/20 [Tylenol w/codeine #3] Ciprofloxacin HCl [Cipro] 500 mg PO Q12HR #18 tablet 01/17/20 Docusate [Colace] 100 mg PO DAILY #30 capsule 01/17/20 Heparin Sodium,Porcine [Heparin 5,000 unit SQ Q12HR #28 vial 01/17/20 Sodium] Allergies Allergy/AdvReac Type Severity Reaction Status Date / Time No Known Allergies Allergy Verified 01/27/20 21:58 Review of Systems ROS Statement: Those systems with pertinent positive or pertinent negative responses have been documented in the HPI. ROS Other: All systems not noted in ROS Statement are negative. Past Medical History Past Medical History: Dementia, Hypertension, Prostate Disorder, Skin Disorder Additional Past Medical History / Comment(s): skin cancer rt ear, parkinsons History of Any Multi-Drug Resistant Organisms: None Reported Past Surgical History: Orthopedic Surgery Additional Past Surgical History / Comment(s): left hip replacement, biopsy of prostate, and skin cancer removed Additional Past Anesthesia/Blood Transfusion Reaction / Comment(s): unable to urinate after general anethesia Past Psychological History: No Psychological Hx Reported Smoking Status: Never smoker Past Alcohol Use History: None Reported Past Drug Use History: None Reported - Past Family History Brother(s) Family Medical History: Cancer Additional Family Medical History / Comment(s): lung and neck growth Sister(s) Family Medical History: Cancer Additional Family Medical History / Comment(s): lung Father Additional Family Medical History / Comment(s): Both parents are . Unclear etiologies. General Exam - General Exam Comments Initial Comments: Constitutional: NAD, AOX3, Pt has pleasant affect. HEENT: NC/AT, trachea midline, neck supple, no lymphadenopathy. Posterior pharynx non erythematous, without exudates. External ears appear normal, without discharge. Mucous membranes moist. Eyes PERRLA, EOM intact. There is no scleral icterus. No pallor noted. Cardiopulmonary: RRR, no murmurs, rubs or gallops, no JVD noted. Lungs CTAB in anterior and posterior chisholm. No peripheral edema. Abdominal exam: Abdomen soft and non-distended. Abdomen non-tender to palpation in all 4 quadrants. Bowel sounds active in LLQ. No hepatosplenomegaly. No ecchymosis Neuro: CN II-XII intact. No nuchal rigidity. No raccon eyes, no hale sign, no hemotympanum. No cervical spinal tenderness. MSK: Incision sites examined and are clean dry and erythema no discharge or signs of infection. No posterior calf tenderness bilaterally, homans sign negative bilaterally. Posterior tibialis and radial pulse +2 bilaterally. S ensation intact in upper and lower extremities. Course Vital Signs 01/27/20 21:53 Temperature 98.2 F Pulse Rate 79 Respiratory 18 Rate Blood Pressure 130/101 O2 Sat by Pulse 98 Oximetry Medical Decision Making - Medical Decision Making 79-year-old male patient past history of dementia presents to ED after sent from rehab facility for approximately 3 days of generalized weakness. Patient denies any acute platelets at this time. Denies any chest pain shortness breath abdominal pain nausea vomiting or diarrhea. reports that approximately 2 years ago patient had a fall and had a left hip fracture for which she he had a hip replacement and was then discharged to tomorrow would. Patient stated he has not been drinking very much water. Laboratory investigations were drawn by primary care provider and did display acute renal failure. Denies any complaints. Patient also in the stable, afebrile. Physical exam did not display acute pathology. Laboratory investigations are repeated from earlier kidney function is improved however creatinine is still elevated to 3.5. UA does display greater than 182 red blood cells, 27 white blood cells. Patient administered one dose of Rocephin emergency department. Patient is an indwelling Urbina catheter. Patient administered 500 mL fluid, ultrasound of kidneys pending. Will be admitted for further evaluation and probable evaluation. Case discussed with Dr. Jennings. - Lab Data Result diagrams: 01/27/20 21:48 01/27/20 21:48 Lab Results 01/27/20 01/27/20 01/27/20 Range/Units 21:48 21:48 21:48 WBC 14.9 H (3.8-10.6) k/uL RBC 3.70 L (4.30-5.90) m/uL Hgb 10.9 L (13.0-17.5) gm/dL Hct 34.4 L (39.0-53.0) % MCV 93.0 (80.0-100.0) fL MCH 29.6 (25.0-35.0) pg MCHC 31.8 (31.0-37.0) g/dL RDW 14.6 (11.5-15.5) % Plt Count 505 H (150-450) k/uL Neutrophils % 93 % Lymphocytes % 2 % Monocytes % 4 % Eosinophils % 1 % Basophils % 0 % Neutrophils # 13.9 H (1.3-7.7) k/uL Lymphocytes # 0.4 L (1.0-4.8) k/uL Monocytes # 0.6 (0-1.0) k/uL Eosinophils # 0.1 (0-0.7) k/uL Basophils # 0.0 (0-0.2) k/uL Hypochromasia Slight PT 10.9 (9.0-12.0) sec INR 1.1 (<1.2) APTT 24.9 (22.0-30.0) sec Sodium 138 (137-145) mmol/L Potassium 5.5 H (3.5-5.1) mmol/L Chloride 106 (98-107) mmol/L Carbon Dioxide 26 (22-30) mmol/L Anion Gap 6 mmol/L BUN 55 H (9-20) mg/dL Creatinine 3.59 H (0.66-1.25) mg/dL Est GFR (CKD-EPI)AfAm 17 (>60 ml/min/1.73 sqM) Est GFR (CKD-EPI)NonAf 15 (>60 ml/min/1.73 sqM) Glucose 129 H (74-99) mg/dL Plasma Lactic Acid Rubin (0.7-2.0) mmol/L Calcium 8.5 (8.4-10.2) mg/dL Phosphorus 4.8 H (2.5-4.5) mg/dL Magnesium 2.3 (1.6-2.3) mg/dL Total Bilirubin 1.4 H (0.2-1.3) mg/dL AST 53 (17-59) U/L ALT 7 (4-49) U/L Alkaline Phosphatase 79 (38-126) U/L Total Protein 6.5 (6.3-8.2) g/dL Albumin 3.4 L (3.5-5.0) g/dL Urine Color Urine Appearance (Clear) Urine pH (5.0-8.0) Ur Specific [place] (1.001-1.035) Urine Protein (Negative) Urine Glucose (UA) (Negative) Urine Ketones (Negative) Urine Blood (Negative) Urine Nitrite (Negative) Urine Bilirubin (Negative) Urine Urobilinogen (<2.0) mg/dL Ur Leukocyte Esterase (Negative) Urine RBC (0-5) /hpf Urine WBC (0-5) /hpf Urine Bacteria (None) /hpf Hyaline Casts (0-2) /lpf Urine Mucus (None) /hpf 01/27/20 01/27/20 Range/Units 21:48 22:20 WBC (3.8-10.6) k/uL RBC (4.30-5.90) m/uL Hgb (13.0-17.5) gm/dL Hct (39.0-53.0) % MCV (80.0-100.0) fL MCH (25.0-35.0) pg MCHC (31.0-37.0) g/dL RDW (11.5-15.5) % Plt Count (150-450) k/uL Neutrophils % % Lymphocytes % % Monocytes % % Eosinophils % % Basophils % % Neutrophils # (1.3-7.7) k/uL Lymphocytes # (1.0-4.8) k/uL Monocytes # (0-1.0) k/uL Eosinophils # (0-0.7) k/uL Basophils # (0-0.2) k/uL Hypochromasia PT (9.0-12.0) sec INR (<1.2) APTT (22.0-30.0) sec Sodium (137-145) mmol/L Potassium (3.5-5.1) mmol/L Chloride (98-107) mmol/L Carbon Dioxide (22-30) mmol/L Anion Gap mmol/L BUN (9-20) mg/dL Creatinine (0.66-1.25) mg/dL Est GFR (CKD-EPI)AfAm (>60 ml/min/1.73 sqM) Est GFR (CKD-EPI)NonAf (>60 ml/min/1.73 sqM) Glucose (74-99) mg/dL Plasma Lactic Acid Rubin 1.1 (0.7-2.0) mmol/L Calcium (8.4-10.2) mg/dL Phosphorus (2.5-4.5) mg/dL Magnesium (1.6-2.3) mg/dL Total Bilirubin (0.2-1.3) mg/dL AST (17-59) U/L ALT (4-49) U/L Alkaline Phosphatase (38-126) U/L Total Protein (6.3-8.2) g/dL Albumin (3.5-5.0) g/dL Urine Color Yellow Urine Appearance Clear (Clear) Urine pH 6.0 (5.0-8.0) Ur Specific [place] 1.016 (1.001-1.035) Urine Protein 2+ H (Negative) Urine Glucose (UA) Negative (Negative) Urine Ketones Negative (Negative) Urine Blood Moderate H (Negative) Urine Nitrite Negative (Negative) Urine Bilirubin Negative (Negative) Urine Urobilinogen <2.0 (<2.0) mg/dL Ur Leukocyte Esterase Trace H (Negative) Urine RBC >182 H (0-5) /hpf Urine WBC 27 H (0-5) /hpf Urine Bacteria Rare H (None) /hpf Hyaline Casts 4 H (0-2) /lpf Urine Mucus Rare H (None) /hpf - EKG Data -: EKG Interpreted by Me (and Dr. Jennings ) EKG Comments: Ventricular rate 79,. And for 142, QRS 74, QT/QTC 396/454. Normal sinus rhythm, normal EKG, no concern for acute ischemia. Disposition Clinical Impression: MOHIT (acute kidney injury), UTI (urinary tract infection) Disposition: ADMITTED IP TO THIS HOSP Condition: Serious Is patient prescribed a controlled substance at d/c from ED?: No Referrals: Keanu Davila MD [Primary Care Provider] - 1-2 days
[2020-01-27] MEDS ORDERED: NALOXONE 0.4 MG/ML 1 ML VIAL IV PRN (23:28)
[2020-01-28 06:44] LABS: Albumin 2.8 g/dL (3.5-5.0); Calcium 8.4 mg/dL (8.4-10.2); Potassium 4.2 mmol/L (3.5-5.1); Total Bilirubin 0.5 mg/dL (0.2-1.3); Total Protein 5.5 g/dL (6.3-8.2)
[2020-01-28 06:45] LABS: Basophils % (A) 0 %; Eosinophils % (A) 0 %; HCT 32.8 % (39.0-53.0); HGB 10.2 gm/dL (13.0-17.5); Hypochromasia Slight; Lymphocytes # (A) 0.4 k/uL (1.0-4.8); Lymphocytes % (A) 4 %; MCH 29.3 pg (25.0-35.0); MCHC 31.2 g/dL (31.0-37.0); MCV 93.8 fL (80.0-100.0); Mean Platelet Volume 6.9; Monocytes # (A) 0.6 k/uL (0-1.0); Monocytes % (A) 5 %; Neutrophils # (A) 9.4 k/uL (1.3-7.7); Neutrophils % (A) 90 %; Platelet Count 515 k/uL (150-450); RDW 14.6 % (11.5-15.5); WBC 10.4 k/uL (3.8-10.6)
[2020-01-28] MEDS: HEPARIN SODIUM,PORCINE 5,000 UNIT/ML 1 ML VIAL SQ SCH ×2 (07:21→20:50)
[2020-01-28] MEDS: DOCUSATE 100 MG CAP PO SCH (07:21)
[2020-01-28] MEDS: CARBIDOPA-LEVODOPA ER 50-200MG 1 EACH TABLET.ER PO SCH ×2 (07:22→12:53)
[2020-01-28] MEDS: FAMOTIDINE 20 MG TAB PO SCH (07:22)
[2020-01-28] MEDS: TAMSULOSIN 0.4 MG CAP.ER.24H PO SCH (07:22)
[2020-01-28] MEDS: SODIUM CHLORIDE 0.9% 1,000 ML IV SCH (08:26)
[2020-01-28] MEDS ORDERED: LEVOFLOXACIN 500 MG TAB PO SCH (09:45)
--- NOTE | 2020-01-28 09:58 | US ---
EXAMINATION TYPE: US kidneys/renal and bladder DATE OF EXAM: 01/28/2020 COMPARISON: NONE CLINICAL HISTORY: renal failure . EXAM MEASUREMENTS: Right Kidney: 10.3 x 4.4 x 4.5 cm Left Kidney: 12.7 x 5.8 x 4.7 cm Right Kidney: cyst measuring 2.2 x 2.3 x 1.6 . Wall is somewhat indistinct although otherwise this ap pears to be simple. Can be performed. Left Kidney: cyst measuring 4.0 x 3.4 x 2.8cm . This appears simple. Bladder: palafox Some urinary bladder wall thickening is not excluded. IMPRESSION: 1. Bilateral renal cysts. 2. Monitoring of the right renal cyst is recommended.
[2020-01-28 10:59] VITALS: BMI 18.1
--- NOTE | 2020-01-28 12:26 | P.HPIM ---
History of Present Illness H&P Date: 01/28/20 This is an 79-year-old male patient of Dr. Davila with past medical history of hypertension, benign prostatic hypertrophy, dementia, Parkinson's, previous left hip replacement with Dr. Reid. Patient was recently hospitalized January 11 through January 16 for right femoral neck fracture status post total hip arthroplasty completed on January [address] Gongora. Patient was discharge to [facility] for subacute rehab. Patient was more lethargic yesterday with generalized weakness. He did not have any falls at the halfway. He had lab work done which revealed acute kidney injury with a creatinine of 5.14 and BUN of 61. Patient was transferred to [facility] emergency center for evaluation. A Urbina catheter was replaced in the emergency center area repeat blood work in the emergency center did show a white count of 15.9, hemoglobin 10.9, potassium 5.5, BUN 55 and creatinine 3.59, phosphorus 4.8. Urinalysis was clear with moderate blood, trace leukoesterase, greater than 182 WBCs, 27 WBCs. Patient was started on Rocephin and [facility], consult with nephrology. Patient's was contacted and provided update on the patient's condition. She does voice the patient wishes to BE a no code. Review of Systems Constitutional: Reports anorexia, Denies chills, reports fatigue, Denies fever, reports lethargy, reports malaise, reports poor appetite, reports weakness, Denies weight loss Eyes: denies blurred vision, denies pain Ears, nose, mouth and throat: Denies dysphagia, Denies headache, Denies nasal congestion, Denies nasal discharge, Denies sore throat, Denies vertigo Cardiovascular: Denies chest pain, Denies decreased exercise tolerance, Denies dyspnea on exertion, Denies edema, Denies leg edema, Denies lightheadedness, D enies shortness of breath, Denies syncope Respiratory: Denies cough, Denies cough with sputum, Denies dyspnea, Denies excessive sputum, Denies hemoptysis, Denies home oxygen, Denies respiratory infections, Denies wheezing Gastrointestinal: Denies abdominal pain, Denies diarrhea, Denies loss of appetite, Denies nausea, Denies vomiting Genitourinary: Denies dysuria, Denies urinary frequency, Denies urinary retention Musculoskeletal: Reports gait dysfunction, reports muscle weakness, Denies myalgias Integumentary: Denies pruritus, Denies rash, Denies wounds, reports ecchymosis to the right hip Neurological: Denies change in mentation, Denies change in speech, Denies numbness, Denies seizures, Denies weakness Psychiatric: Denies anxiety, Denies depression Endocrine: Denies fatigue, Denies weight change Past Medical History Past Medical History: Dementia, Hypertension, Prostate Disorder, Skin Disorder Additional Past Medical History / Comment(s): skin cancer rt ear, parkinsons History of Any Multi-Drug Resistant Organisms: None Reported Past Surgical History: Orthopedic Surgery Additional Past Surgical History / Comment(s): right hip replacement, biopsy of prostate, and skin cancer removed Additional Past Anesthesia/Blood Transfusion Reaction / Comment(s): unable to urinate after general anethesia Past Psychological History: No Psychological Hx Reported Smoking Status: Never smoker Past Alcohol Use History: None Reported Past Drug Use History: None Reported - Past Family History Brother(s) Family Medical History: Cancer Additional Family Medical History / Comment(s): Patient has 1 brother that is with history of some type of lung and neck growth. Sister(s) Family Medical History: Cancer Additional Family Medical History / Comment(s): Sister is with lung c ancer. Father Additional Family Medical History / Comment(s): Both parents are . Unclear etiologies. Medications and Allergies Home Medications Medication Instructions Recorded Confirmed Type Tamsulosin HCl [Flomax] 0.4 mg PO DAILY@79904/10/17 01/28/20 History amLODIPine [Norvasc] 5 mg PO DAILY@79904/10/17 01/28/20 History Sertraline HCl [Zoloft] 25 mg PO HS@2100 02/26/18 01/28/20 History Carbidopa/Levodopa [Sinemet CR 0.5 each PO DAILY@1300 01/12/20 01/28/20 History 50-200 mg] Carbidopa/Levodopa [Sinemet CR 1 tab PO DAILY@79901/12/20 01/28/20 History 50-200 mg] L.acidoph,Paracasei, B.lactis 1 cap PO DAILY@79901/12/20 01/28/20 History [Probiotic] Psyllium Husk (with Sugar) 11 gm PO DAILY PRN 01/12/20 01/28/20 History [Metamucil Powder] Acetaminophen with Codeine 1 tab PO Q6H PRN #28 tab 01/17/20 01/28/20 Rx [Tylenol w/codeine #3] Docusate [Colace] 100 mg PO DAILY #30 capsule 01/17/20 01/28/20 Rx Heparin Sodium,Porcine [Heparin 5,000 unit SQ Q12HR #28 vial 01/17/20 01/28/20 Rx Sodium] Bisacodyl [Dulcolax] 10 mg RECTAL DAILY PRN 01/28/20 01/28/20 History Lactose-Reduced Food [Ensure Plus] 1 can PO TID@0800,1200,1700 01/28/20 01/28/20 History Magnesium Hydroxide [Milk of 7,200 mg PO DAILY PRN 01/28/20 01/28/20 History Magnesia Concentrate] Na Phos,M-B/Na Phos,Di-Ba [Fleet 133 ml RECTAL DAILY PRN 01/28/20 01/28/20 History Adult] Potassium Chloride ER [K-Dur 20] 20 meq PO ONCE 01/28/20 01/28/20 History Allergies Allergy/AdvReac Type Severity Reaction Status Date / Time No Known Allergies Allergy Verified 01/28/20 09:15 Physical Exam Vitals: Vital Signs Temp Pulse Pulse Resp BP BP Pulse Ox 01/28/20 04:48 97.8 F 83 16 123/73 98 01/28/20 01:18 97.0 F L 75 20 121/77 99 01/27/20 23:59 81 18 120/64 100 01/27/20 21:53 98.2 F 79 18 130/101 98 Intake and Output 01/27/20 01/28/20 01/28/20 22:59 06:59 14:59 Intake Total 0 Output Total 300 Balance -300 Intake: Oral 0 Output: Urine 300 Other: Voiding Method Indwelling Catheter Weight 62.596 kg 62.596 kg Physical examination Gen: This is a 79-year-old thin male. Patient is resting in bed and appears in no acute distress. HEENT: Head is atraumatic, normocephalic. Pupils equal, round. Sclerae is anicteric. NECK: Supple. No JVD. No lymphadenopathy. No thyromegaly. LUNGS: Clear to auscultation. No wheezes or rhonchi. No intercostal retractions. HEART: Regular rate and rhythm. No murmur. ABDOMEN: Soft. Bowel sounds are present. No masses. No tenderness. EXTREMITIES: No pedal edema. No calf tenderness. Ecchymosis to the right hip/posterior leg. NEUROLOGICAL: Patient is awake, oriented to person and place. Cranial nerves 2 through 12 are grossly intact. Significant generalized weakness noted. Results CBC & Chem 7: 01/28/20 05:50 01/28/20 05:50 Labs: Abnormal Lab Results - Last 24 Hours (Table) 01/27/20 01/27/20 01/27/20 Range/Units 21:48 21:48 22:20 WBC 14.9 H (3.8-10.6) k/uL RBC 3.70 L (4.30-5.90) m/uL Hgb 10.9 L (13.0-17.5) gm/dL Hct 34.4 L (39.0-53.0) % Plt Count 505 H (150-450) k/uL Neutrophils # 13.9 H (1.3-7.7) k/uL Lymphocytes # 0.4 L (1.0-4.8) k/uL Potassium 5.5 H (3.5-5.1) mmol/L Chloride (98-107) mmol/L BUN 55 H (9-20) mg/dL Creatinine 3.59 H (0.66-1.25) mg/dL Glucose 129 H (74-99) mg/dL Phosphorus 4.8 H (2.5-4.5) mg/dL Total Bilirubin 1.4 H (0.2-1.3) mg/dL Total Protein (6.3-8.2) g/dL Albumin 3.4 L (3.5-5.0) g/dL Urine Protein 2+ H (Negative) Urine Blood Moderate H (Negative) Ur Leukocyte Esterase Trace H (Negative) Urine RBC >182 H (0-5) /hpf Urine WBC 27 H (0-5) /hpf Urine Bacteria Rare H (None) /hpf Hyaline Casts 4 H (0-2) /lpf Urine Mucus Rare H (None) /hpf 01/28/20 01/28/20 Range/Units 05:50 05:50 WBC (3.8-10.6) k/uL RBC 3.50 L (4.30-5.90) m/uL Hgb 10.2 L (13.0-17.5) gm/dL Hct 32.8 L (39.0-53.0) % Plt Count 515 H (150-450) k/uL Neutrophils # 9.4 H (1.3-7.7) k/uL Lymphocytes # 0.4 L (1.0-4.8) k/uL Potassium (3.5-5.1) mmol/L Chloride 110 H (98-107) mmol/L BUN 40 H (9-20) mg/dL Creatinine 2.07 H (0.66-1.25) mg/dL Glucose 112 H (74-99) mg/dL Phosphorus (2.5-4.5) mg/dL Total Bilirubin (0.2-1.3) mg/dL Total Protein 5.5 L (6.3-8.2) g/dL Albumin 2.8 L (3.5-5.0) g/dL Urine Protein (Negative) Urine Blood (Negative) Ur Leukocyte Esterase (Negative) Urine RBC (0-5) /hpf Urine WBC (0-5) /hpf Urine Bacteria (None) /hpf Hyaline Casts (0-2) /lpf Urine Mucus (None) /hpf Microbiology - Last 24 Hours (Table) 01/27/20 22:00 Urine Culture - Preliminary Urine,Voided Thrombosis Risk Factor Assmnt - DVT/VTE Prophylaxis DVT/VTE Prophylaxis: Pharmacologic Prophylaxis ordered - Choose All That Apply Any of the Below Risk Factors Present?: Yes Each Factor Represents 1 point: Swollen legs (current) Each Risk Factor Represents 2 Points: Patient confined to bed Each Risk Factor Represents 3 Points: Age 75 years or older Thrombosis Risk Factor Assessment Total Risk Factor Score: 6 Thrombosis Risk Factor Assessment Level: High Risk Assessment and Plan Plan: 1. Acute kidney injury with hyperkalemia. IV fluids at 50 mL per hour. Consult with Dr. Roach appreciated. 2. Hyperphosphatemia secondary to renal failure. 3. Leukocytosis and possible urinary tract infection. Patient started on Rocephin and Levaquin, renal dosing. Await urine culture. 4. Recent hospitalization for right hip arthroplasty, stable. Continue Tylenol 3 for pain, PT and OT. 5. Hypertension. Resume amlodipine 5 mg daily for tomorrow with parameters. 6. Benign prostatic hypertrophy. Urbina catheter in place. Continue Flomax 0.4 mg daily. 7. Parkinson's with dementia. Continue Sinemet 0.5 mg at 1 PM and 1 mg at 8 AM. 8. Skin cancer status post resection right scalp area. 9. Recurrent depression. Continue Zoloft 25 mg at bedtime. 10. Severe protein calorie malnutrition with BMI of 18. Continue Ensure Plus 3 times daily. Dietitian consult. 11. DVT prophylaxis. Heparin subcu. 12. GI prophylaxis. Pepcid. 13. COVID-19 testing in process. CODE STATUS: No code Discharge plan: Return to [facility] on Friday under the care of Dr. Baptiste. Consu lt with PT and OT. Impression and plan of care have been directed as dictated by the signing physic ian. Desi Eastman nurse practitioner acting as scribe for signing physician.
--- NOTE | 2020-01-28 16:49 | CONS ---
CONSULTATION REASON FOR CONSULTATION: Acute kidney injury. HISTORY OF PRESENT ILLNESS: This patient is an 79-year-old male who was transferred from [facility] with history of mental status changes. He has been quite weak. He has not been responsive much. The patient was found to have a urinary tract infection. He is currently started on antibiotics. Serum creatinine was 3.59 on admission, currently down to 2.07. Prior creatinine 0.69 on 01/21/2020. Blood pressure has not been significantly low. Lowest systolic blood pressure at 114 mmHg. The patient was not on any nonsteroidal anti-inflammatory agents or LAURENCE inhibitors prior to admission. PAST MEDICAL HISTORY: Dementia, hypertension, skin cancer with large skin flap on the right side of the face, Parkinson's disease, osteoarthritis. PAST SURGICAL HISTORY: Excision of skin cancer on the right side of the face, left hip arthroplasty, prostate biopsy. SOCIAL HISTORY: Negative for smoking, drug abuse or alcohol abuse. MEDICATIONS: Currently patient is at [facility]. Medications prior to admission included Sinemet, Metamucil, potassium, milk of magnesia, Dulcolax, Flomax, Zoloft, Norvasc, Colace. REVIEW OF SYSTEMS: Review of systems cannot be obtained. PHYSICAL EXAMINATION: Patient is comfortable. He does not respond or communicate much. He does open his eyes to verbal stimuli. Blood pressure was 123/73, heart rate 83 per minute. He is afebrile. EXAMINATION OF THE HEART: S1 and S2. EXAMINATION OF LUNGS: Bilateral breath sounds are heard. ABDOMEN: Soft, non-tender. Examination of lower extremities shows no significant edema. [employer] exam shows patient barely opens his eyes to verbal stimuli. He does not communicate much. He is not moving his extremities at this point. LABS: Labs show sodium 141, potassium 4.2, chloride 110. CO2 is 26, BUN 40, creatinine 2.07, hemoglobin 10.2 g/dL. UA shows 2+ protein, WBCs 27, RBCs more than 182. Currently this is a catheter specimen. ASSESSMENT: 1. Acute kidney injury, prerenal, currently maintained on IV fluids. 2. Parkinson's disease with baseline dementia. 3. History of benign prostatic hypertrophy, maintained on Flomax. 4. Hypertension, currently not on any antihypertensive medications. 5. Pyuria. Rule out urinary tract infection. Started on ceftriaxone. Urine culture is pending. 6. Hyperkalemia associated with acute kidney injury, currently improved with improving renal function. PLAN: Follow up on urine cultures. Maintain IV fluids at about 50 mL/hour. Repeat labs in a.m. Thank you for this consultation. Will continue to follow the patient with you during his hospitalization. MIRLANDE / CELESTE: [id number] /
[2020-01-28] MEDS ORDERED: NON FORMULARY DRUG (Lactose-Reduced Food [Ensure Plus] 1 CAN) PO SCH (17:00)
[2020-01-28] MEDS: SERTRALINE 25 MG TAB PO SCH (20:50)
[2020-01-29] MEDS: SODIUM CHLORIDE 0.9% 1,000 ML IV SCH (02:26)
[2020-01-29] MEDS: TAMSULOSIN 0.4 MG CAP.ER.24H PO SCH (08:13)
[2020-01-29] MEDS: LEVOFLOXACIN 250 MG TAB PO SCH (08:13)
[2020-01-29] MEDS: DOCUSATE 100 MG CAP PO SCH (08:13)
[2020-01-29] MEDS: amLODIPine 5 MG TAB PO SCH (08:13)
[2020-01-29] MEDS: FAMOTIDINE 20 MG TAB PO SCH (08:13)
[2020-01-29] MEDS: CARBIDOPA-LEVODOPA ER 50-200MG 1 EACH TABLET.ER PO SCH ×2 (08:13→13:30)
[2020-01-29] MEDS: HEPARIN SODIUM,PORCINE 5,000 UNIT/ML 1 ML VIAL SQ SCH ×2 (08:13→21:57)
--- NOTE | 2020-01-29 09:16 | P.PN ---
Subjective Patient is seen in follow-up for acute kidney injury. Denies chest pain or shortness of breath. No vomiting or diarrhea. He has a Urbina catheter for urinary retention. Nonoliguric. Vital signs are stable. General: The patient appeared well nourished and normally developed. HEENT: Head exam is unremarkable. Neck is without jugular venous distension. LUNGS: Lungs are clear to auscultation and percussion. Breath sounds decreased. HEART: Rate and Rhythm are regular. First and second heart sounds normal. No murmurs, rubs or gallops. ABDOMEN: Abdominal exam reveals normal bowel sounds. Non-tender and non- distended. EXTREMITITES: No clubbing, cyanosis, or edema. Objective - Vital Signs Vital signs: Vital Signs Temp 96.2 F L 01/29/20 05:00 Pulse 74 01/29/20 05:00 Resp 16 01/29/20 05:00 BP 122/67 01/29/20 05:00 Pulse Ox 98 01/29/20 05:00 Intake & Output 01/28/20 01/29/20 01/29/20 18:59 06:59 18:59 Intake Total 1300 500 Output Total 1000 800 Balance 300 -300 Weight 62.596 kg Intake: Intake, IV Titration 650 Amount Sodium Chloride 0.9% 1, 600 000 ml @ 50 mls/hr IV . Q20H [facility] Rx#:[id number] cefTRIAXone 1 gm In 50 Sodium Chloride 0.9% 50 ml @ 100 mls/hr IVPB Q24H [facility] Rx#:[id number] Oral 650 500 Output: Urine 1000 800 Other: Voiding Method Indwelling Catheter Indwelling Catheter # Voids 1 - Labs CBC & Chem 7: 01/28/20 05:50 01/28/20 05:50 Labs: Microbiology - Last 24 Hours (Table) 01/27/20 22:00 Urine Culture - Final Urine,Voided Assessment and Plan Plan: Assessment: 1. Acute kidney injury mostly prerenal improving with IV hydration. Also component of urinary retention. Creatinine was 3.59 on admission and is down to 2.07 today. Baseline creatinine near 1. No hydronephrosis noted on renal ultrasound. 2. History of Parkinson's disease. 3. Benign hypertension. Controlled. 4. Hyperkalemia secondary to acute kidney injury and urinary retention. Resolved. 5. Pyuria. Maintain on antibiotics. Urine culture negative so far. 6. Urinary retention. Currently has Urbina catheter. Also on Flomax. Plan: Maintain normal saline at 50 mL an hour. Maintain Urbina catheter. Avoid nephrotoxins. Hold amlodipine for systolic blood pressure less than 120. Repeat electrolytes the morning.
[2020-01-29 09:40] LABS: African American GFR (CKD) >90 (>60 ml/min/1.73 sqM); Anion Gap 4 mmol/L; Blood Urea Nitrogen 26 mg/dL (9-20); Calcium 8.3 mg/dL (8.4-10.2); Carbon Dioxide 27 mmol/L (22-30); Chloride 108 mmol/L (98-107); Glucose 171 mg/dL (74-99); Magnesium 2.1 mg/dL (1.6-2.3); Non-African American GFR(CKD) 81 (>60 ml/min/1.73 sqM); Potassium 3.8 mmol/L (3.5-5.1); Sodium 139 mmol/L (137-145)
--- NOTE | 2020-01-29 14:48 | P.PN ---
Subjective Progress Note Date: 01/29/20 Principal diagnosis: Acute kidney injury, leukocytosis, right hip fracture post hemiarthroplasty, hypertension, BPH, Parkinson disease, skin cancer. This is an 79-year-old male patient of Dr. Davila with past medical history of hypertension, benign prostatic hypertrophy, dementia, Parkinson's, previous left hip replacement with Dr. Reid. Patient was recently hospitalized January 11 through January 16 for right femoral neck fracture status post total hip arthroplasty completed on January [address] Gongora. Patient was discharge to [facility] for subacute rehab. Patient was more lethargic yesterday with generalized weakness. He [facility] not [facility] the [facility]. He had lab work done which revealed acute kidney injury with a creatinine of 5.14 and BUN of 61. Patient was transferred to [facility] emergency center for evaluation. A Urbina catheter was replaced in the emergency center area repeat blood work in the emergency center did show a white count of 15.9, hemoglobin 10.9, potassium 5.5, BUN 55 and creatinine 3.59, phosphorus 4.8. Urinalysis was clear with moderate blood, trace leukoesterase, greater than 182 WBCs, 27 WBCs. Patient was started on Rocephin and admitted to the [facility] floor, consult with nephrology. Patient's was contacted and provided update on the patient's condition. She does voice the patient wishes to BE a no code. 01/28: Patient is doing much better is able to interact slightly I update the family with his condition at this point his creatinine is much better he remain with a Urbina catheter and apparently his obstructive uropathy and UTIs affected his kidney function and has improved with the treatment. continue to do physical therapy and anticipate to go back to [facility] on Friday. Objective - Vital Signs Vital signs: Vital Signs Temp 97.3 F L 01/29/20 12:06 Pulse 72 01/29/20 12:06 Resp 17 01/29/20 12:06 BP 129/68 01/29/20 12:06 Pulse Ox 98 01/29/20 12:06 Intake & Output 01/28/20 01/29/20 01/29/20 18:59 06:59 18:59 Intake Total 1300 500 720 Output Total 1000 800 300 Balance 300 -300 420 Weight 62.596 kg Intake: Intake, IV Titration 650 Amount Sodium Chloride 0.9% 1, 600 000 ml @ 50 mls/hr IV . Q20H COUNT INCLUDES THE [facility] Rx#:[id number] cefTRIAXone 1 gm In 50 Sodium Chloride 0.9% 50 ml @ 100 mls/hr IVPB Q24H COUNT INCLUDES THE [facility] Rx#:[id number] Oral 650 500 720 Output: Urine 1000 800 300 Other: Voiding Method Indwelling Catheter Indwelling Catheter Indwelling Catheter # Voids 1 1 - Exam Review of Systems Constitutional: Reports anorexia, Denies chills, reports fatigue, Denies fever, reports lethargy, reports malaise, reports poor appetite, reports weakness, Denies weight loss Eyes: denies blurred vision, denies pain Ears, nose, mouth and throat: Denies dysphagia, Denies headache, Denies nasal congestion, Denies nasal discharge, Denies sore throat, Denies vertigo Cardiovascular: Denies chest pain, Denies decreased exercise tolerance, Denies dyspnea on exertion, Denies edema, Denies leg edema, Denies lightheadedness, Denies shortness of breath, Denies syncope Respiratory: Denies cough, Denies cough with sputum, Denies dyspnea, Denies excessive sputum, Denies hemoptysis, Denies home oxygen, Denies respiratory infections, Denies wheezing Gastrointestinal: Denies abdominal pain, Denies diarrhea, Denies loss of appetite, Denies nausea, Denies vomiting Genitourinary: Denies dysuria, Denies urinary frequency, Denies urinary retention Musculoskeletal: Reports gait dysfunction, reports muscle weakness, Denies myalgias Integumentary: Denies pruritus, Denies rash, Denies wounds, reports ecchymosis to the right hip Neurological: Denies change in mentation, Denies change in speech, Denies numbness, Denies seizures, Denies weakness Psychiatric: Denies anxiety, Denies depression Endocrine: Denies fatigue, Denies weight change Physical examination Gen: This is a 79-year-old thin male. Patient is resting in bed and appears in no acute distress. HEENT: Head is atraumatic, normocephalic. Pupils equal, round. Sclerae is anicteric. NECK: Supple. No JVD. No lymphadenopathy. No thyromegaly. LUNGS: Clear to auscultation. No wheezes or rhonchi. No intercostal retractions. HEART: Regular rate and rhythm. No murmur. ABDOMEN: Soft. Bowel sounds are present. No masses. No tenderness. EXTREMITIES: No pedal edema. No calf tenderness. Ecchymosis to the right hip/posterior leg. NEUROLOGICAL: Patient is awake, oriented to person and place. Cranial nerves 2 through 12 are grossly intact. Significant generalized weakness noted. - Labs CBC & Chem 7: 01/28/20 05:50 01/29/20 09:08 Labs: Abnormal Lab Results - Last 24 Hours (Table) 01/29/20 Range/Units 09:08 Chloride 108 H (98-107) mmol/L BUN 26 H (9-20) mg/dL Glucose 171 H (74-99) mg/dL Calcium 8.3 L (8.4-10.2) mg/dL Microbiology - Last 24 Hours (Table) 01/27/20 22:00 Urine Culture - Final Urine,Voided Assessment and Plan Assessment: 1 acute kidney injury: Continue hydration, creatinine is back to normal patient most likely had obstructive uropathy has been improved significantly still have Urbina cath at this point. 2 leukocytosis and urine tract infection with mild sepsis and UTI, patient remain on Rocephin and Levaquin will continue Levaquin orally for total of 5 da ys after he leaves the hospital. 3 recent hospitalization for hip fracture post hemiarthroplasty doing well. 4 hypertension: Continue amlodipine at 5 mg a day. 5 history of Parkinson disease on Sinemet doing better. 6 history of Parkinson dementia: No change in his mentation has improved some to day. 7 mild depression: Remain on Zoloft 25 g a day. 8 BPH with mild urinary retention remain on alpha-devin and still have Urbina cath at this point. 9 Covid 19 testing negative. 10 severe protein calorie malnutrition, continue Ensure Plus 3 times a day and continued follow dietitian information. Family meeting: I had long discussion with the son and the last few days and fully aware of. With the patient 1 him to go back to [facility] for rehab at this point patient remain DO NOT RESUSCITATE.
[2020-01-29] MEDS: SERTRALINE 25 MG TAB PO SCH (21:57)
[2020-01-30] MEDS: SODIUM CHLORIDE 0.9% 1,000 ML IV SCH (00:34)
[2020-01-30 07:13] LABS: Basophils % (A) 0 %; Eosinophils # (A) 0.1 k/uL (0-0.7); Eosinophils % (A) 1 %; HGB 9.9 gm/dL (13.0-17.5); Hypochromasia Slight; Lymphocytes # (A) 0.3 k/uL (1.0-4.8); Lymphocytes % (A) 5 %; MCH 30.1 pg (25.0-35.0); MCHC 31.9 g/dL (31.0-37.0); MCV 94.4 fL (80.0-100.0); Monocytes # (A) 0.3 k/uL (0-1.0); Monocytes % (A) 5 %; Neutrophils # (A) 5.2 k/uL (1.3-7.7); Neutrophils % (A) 88 %; Platelet Count 468 k/uL (150-450); RBC 3.29 m/uL (4.30-5.90); RDW 14.1 % (11.5-15.5)
[2020-01-30 07:18] LABS: ALT 26 U/L (4-49); AST 32 U/L (17-59); African American GFR (CKD) >90 (>60 ml/min/1.73 sqM); Albumin 2.6 g/dL (3.5-5.0); Alkaline Phosphatase 106 U/L (38-126); Anion Gap 5 mmol/L; Blood Urea Nitrogen 18 mg/dL (9-20); Calcium 8.4 mg/dL (8.4-10.2); Carbon Dioxide 24 mmol/L (22-30); Chloride 110 mmol/L (98-107); Glucose 112 mg/dL (74-99); Magnesium 1.9 mg/dL (1.6-2.3); Non-African American GFR(CKD) >90 (>60 ml/min/1.73 sqM); Sodium 139 mmol/L (137-145); Total Bilirubin 0.4 mg/dL (0.2-1.3); Total Protein 5.3 g/dL (6.3-8.2)
--- NOTE | 2020-01-30 10:21 | P.PN ---
Subjective Progress Note Date: 01/30/20 Principal diagnosis: Acute kidney injury, leukocytosis, right hip fracture post hemiarthroplasty, hypertension, BPH, Parkinson disease, skin cancer. This is an 79-year-old male patient of Dr. Davila with past medical history of hypertension, benign prostatic hypertrophy, dementia, Parkinson's, previous left hip replacement with Dr. Reid. Patient was recently hospitalized January 11 through January 16 for right femoral neck fracture status post total hip arthroplasty completed on January [address] Gongora. Patient was discharge to [facility] for subacute rehab. Patient was more lethargic yesterday with generalized weakness. He did not have any falls at the longterm. He had lab work done which revealed acute kidney injury with a creatinine of 5.14 and BUN of 61. Patient was transferred to [facility] emergency center for evaluation. A Urbina catheter was replaced in the emergency center area repeat blood work in the emergency center did show a white count of 15.9, hemoglobin 10.9, potassium 5.5, BUN 55 and creatinine 3.59, phosphorus 4.8. Urinalysis was clear with moderate blood, trace leukoesterase, greater than 182 WBCs, 27 WBCs. Patient was started on Rocephin and admitted to the [facility] floor, consult with nephrology. Patient's was contacted and provided update on the patient's condition. She does voice the patient wishes to BE a no code. 01/28: Patient is doing much better is able to interact slightly I update the family with his condition at this point his creatinine is much better he remain with a Urbina catheter and apparently his obstructive uropathy and UTIs affected his kidney function and has improved with the treatment. continue to do physical therapy and anticipate to go back to [facility] on Friday. 01/29: Patient is doing much better his kidney function has improved significantly, UTI still been treated with Levaquin orally. Patient hemoglobin dropped down slightly he is interacting more than before and more awake. Still slightly but confused. The plan still to send him back to [facility] for more phys ical therapy either tomorrow on Friday. Objective - Vital Signs Vital signs: Vital Signs Temp 98 F 01/30/20 05:07 Pulse 72 01/30/20 05:07 Resp 16 01/30/20 05:07 BP 136/77 01/30/20 05:07 Pulse Ox 98 01/30/20 05:07 Intake & Output 01/29/20 01/30/20 01/30/20 18:59 06:59 18:59 Intake Total 720 790 Output Total 600 877 Balance 120 -87 Intake: Intake, IV Titration 500 Amount Sodium Chloride 0.9% 1, 450 000 ml @ 50 mls/hr IV . Q20H [facility] Rx#:[id number] cefTRIAXone 1 gm In 50 Sodium Chloride 0.9% 50 ml @ 100 mls/hr IVPB Q24H [facility] Rx#:[id number] Oral 720 290 Output: Urine 600 875 Stool 2 Other: Voiding Method Indwelling Catheter Indwelling Catheter # Voids 1 # Bowel Movements 1 - Exam Review of Systems Constitutional: Reports anorexia, Denies chills, reports fatigue, Denies fever, reports lethargy, reports malaise, reports poor appetite, reports weakness, Denies weight loss Eyes: denies blurred vision, denies pain Ears, nose, mouth and throat: Denies dysphagia, Denies headache, Denies nasal congestion, Denies nasal discharge, Denies sore throat, Denies vertigo Cardiovascular: Denies chest pain, Denies decreased exercise tolerance, Denies dyspnea on exertion, Denies edema, Denies leg edema, Denies lightheadedness, Denies shortness of breath, Denies syncope Respiratory: Denies cough, Denies cough with sputum, Denies dyspnea, Denies excessive sputum, Denies hemoptysis, Denies home oxygen, Denies respiratory infections, Denies wheezing Gastrointestinal: Denies abdominal pain, Denies diarrhea, Denies loss of appetite, Denies nausea, Denies vomiting Genitourinary: Denies dysuria, Denies urinary frequency, Denies urinary retention Musculoskeletal: Reports gait dysfunction, reports muscle weakness, Denies myalgias Integumentary: Denies pruritus, Denies rash, Denies wounds, reports ecchymosis to the right hip Neurological: Denies change in mentation, Denies change in speech, Denies numbness, Denies seizures, Denies weakness Psychiatric: Denies anxiety, Denies depression Endocrine: Denies fatigue, Denies weight change Physical examination Gen: This is a 79-year-old thin male. Patient is resting in bed and appears in no acute distress. HEENT: Head is atraumatic, normocephalic. Pupils equal, round. Sclerae is anicteric. NECK: Supple. No JVD. No lymphadenopathy. No thyromegaly. LUNGS: Clear to auscultation. No wheezes or rhonchi. No intercostal retractions. HEART: Regular rate and rhythm. No murmur. ABDOMEN: Soft. Bowel sounds are present. No masses. No tenderness. EXTREMITIES: No pedal edema. No calf tenderness. Ecchymosis to the right hip/posterior leg. NEUROLOGICAL: Patient is awake, oriented to person and place. Cranial nerves 2 through 12 are grossly intact. Significant generalized weakness noted. - Labs CBC & Chem 7: 01/30/20 06:32 01/30/20 06:32 Labs: Abnormal Lab Results - Last 24 Hours (Table) 01/29/20 01/30/20 01/30/20 Range/Units 09:08 06:32 06:32 RBC 3.29 L (4.30-5.90) m/uL Hgb 9.9 L (13.0-17.5) gm/dL Hct 31.0 L (39.0-53.0) % Plt Count 468 H (150-450) k/uL Lymphocytes # 0.3 L (1.0-4.8) k/uL Chloride 108 H 110 H (98-107) mmol/L BUN 26 H (9-20) mg/dL Creatinine 0.65 L (0.66-1.25) mg/dL Glucose 171 H 112 H (74-99) mg/dL Calcium 8.3 L (8.4-10.2) mg/dL Total Protein 5.3 L (6.3-8.2) g/dL Albumin 2.6 L (3.5-5.0) g/dL Assessment and Plan Assessment: 1 acute kidney injury: Continue hydration, creatinine is back to normal patient most likely had obstructive uropathy has been improved significantly still have Urbina cath at this point. His GFR is above 60 today and improving. 2 leukocytosis and urine tract infection with mild sepsis and UTI, patient is to continue Levaquin for 5 more days. 3 recent hospitalization for hip fracture post hemiarthroplasty doing well. 4 hypertension: Continue amlodipine at 5 mg a day. 5 history of Parkinson disease on Sinemet doing better. 6 history of Parkinson dementia: No change in his mentation has improved some today. 7 mild depression: Remain on Zoloft 25 g a day. 8 BPH with mild urinary retention remain on alpha-devin and still have Urbina cath at this point. 9 Covid 19 testing negative. 10 severe protein calorie malnutrition, continue Ensure Plus 3 times a day and continued follow dietitian information. Family meeting: I had long discussion with the son and the last few days and fully aware of. With the patient 1 him to go back to [facility] for rehab at this point patient remain DO NOT RESUSCITATE.
[2020-01-30] MEDS: DOCUSATE 100 MG CAP PO SCH (10:31)
[2020-01-30] MEDS: amLODIPine 5 MG TAB PO SCH (10:31)
[2020-01-30] MEDS: FAMOTIDINE 20 MG TAB PO SCH (10:31)
[2020-01-30] MEDS: HEPARIN SODIUM,PORCINE 5,000 UNIT/ML 1 ML VIAL SQ SCH ×2 (10:33→20:51)
[2020-01-30] MEDS: CARBIDOPA-LEVODOPA ER 50-200MG 1 EACH TABLET.ER PO SCH ×2 (10:33→13:20)
[2020-01-30] MEDS: LEVOFLOXACIN 250 MG TAB PO SCH (10:33)
[2020-01-30] MEDS: TAMSULOSIN 0.4 MG CAP.ER.24H PO SCH (10:34)
[2020-01-30] MEDS: Acetaminophen-Codeine 300-30mg TAB PO PRN (10:37)
--- NOTE | 2020-01-30 11:13 | P.PN ---
Subjective Patient is seen in follow-up for acute kidney injury. Denies chest pain or shortness of breath. No vomiting or diarrhea. He has a Urbina catheter for urinary retention. Nonoliguric. Hemodynamically stable. Renal function improved. Vital signs are stable. General: The patient appeared well nourished and normally developed. HEENT: Head exam is unremarkable. Neck is without jugular venous distension. LUNGS: Lungs are clear to auscultation and percussion. Breath sounds decreased. HEART: Rate and Rhythm are regular. ABDOMEN: Abdominal exam reveals normal bowel sounds. Non-tender and non- distended. EXTREMITITES: No clubbing, cyanosis, or edema. Objective - Vital Signs Vital signs: Vital Signs Temp 98 F 01/30/20 05:07 Pulse 72 01/30/20 05:07 Resp 16 01/30/20 05:07 BP 136/77 01/30/20 05:07 Pulse Ox 98 01/30/20 05:07 Intake & Output 01/29/20 01/30/20 01/30/20 18:59 06:59 18:59 Intake Total 720 790 Output Total 600 877 Balance 120 -87 Intake: Intake, IV Titration 500 Amount Sodium Chloride 0.9% 1, 450 000 ml @ 50 mls/hr IV . Q20H [facility] Rx#:[id number] cefTRIAXone 1 gm In 50 Sodium Chloride 0.9% 50 ml @ 100 mls/hr IVPB Q24H [facility] Rx#:[id number] Oral 720 290 Output: Urine 600 875 Stool 2 Other: Voiding Method Indwelling Catheter Indwelling Catheter # Voids 1 # Bowel Movements 1 - Labs CBC & Chem 7: 01/30/20 06:32 01/30/20 06:32 Labs: Abnormal Lab Results - Last 24 Hours (Table) 01/30/20 01/30/20 Range/Units 06:32 06:32 RBC 3.29 L (4.30-5.90) m/uL Hgb 9.9 L (13.0-17.5) gm/dL Hct 31.0 L (39.0-53.0) % Plt Count 468 H (150-450) k/uL Lymphocytes # 0.3 L (1.0-4.8) k/uL Chloride 110 H (98-107) mmol/L Creatinine 0.65 L (0.66-1.25) mg/dL Glucose 112 H (74-99) mg/dL Total Protein 5.3 L (6.3-8.2) g/dL Albumin 2.6 L (3.5-5.0) g/dL Assessment and Plan Plan: Assessment: 1. Acute kidney injury mostly prerenal improving with IV hydration. Also component of urinary retention. Creatinine was 3.59 on admission and is down to 0.65 today. Baseline creatinine near 1. No hydronephrosis noted on renal ultrasound. 2. History of Parkinson's disease. 3. Benign hypertension. Controlled. 4. Hyperkalemia secondary to acute kidney injury and urinary retention. Resolved. 5. Pyuria. Maintain on antibiotics. Urine culture negative so far. 6. Urinary retention. Currently has Ubrina catheter. Also on Flomax. Plan: Maintain normal saline at 50 mL an hour. Maintain Urbina catheter. Avoid nephrotoxins. Hold amlodipine for systolic blood pressure less than 120. Will sign off.
[2020-01-30] MEDS: SERTRALINE 25 MG TAB PO SCH (20:51)
[2020-01-31] MEDS: SODIUM CHLORIDE 0.9% 1,000 ML IV SCH ×2 (01:24→14:53)
--- NOTE | 2020-01-31 09:10 | P.PN ---
Subjective Progress Note Date: 01/31/20 Principal diagnosis: Acute kidney injury, leukocytosis, right hip fracture post hemiarthroplasty, hypertension, BPH, Parkinson disease, skin cancer. This is an 79-year-old male patient of Dr. Davila with past medical history of hypertension, benign prostatic hypertrophy, dementia, Parkinson's, previous left hip replacement with Dr. Reid. Patient was recently hospitalized January 11 through January 16 for right femoral neck fracture status post total hip arthroplasty completed on January [address] Gongora. Patient was discharge to [facility] for subacute rehab. Patient was more lethargic yesterday with generalized weakness. He did not have any falls [facility] the [facility]. He had lab work done which revealed acute kidney injury with a creatinine of 5.14 and BUN of 61. Patient was transferred to [facility] emergency center for evaluation. A Urbina catheter was replaced in the emergency center area repeat blood work in the emergency center did show a white count of 15.9, hemoglobin 10.9, potassium 5.5, BUN 55 and creatinine 3.59, phosphorus 4.8. Urinalysis was clear with moderate blood, trace leukoesterase, greater than 182 WBCs, 27 WBCs. Patient was started on Rocephin [facility]. Patient's was contacted and provided update on the patient's condition. She does voice the patient wishes to BE a no code. 01/28: Patient is doing much better is able to interact slightly I update the family with his condition at this point his creatinine is much better he remain with a Urbina catheter and apparently his obstructive uropathy and UTIs affected his kidney function and has improved with the treatment. continue to do physical therapy and anticipate to go back to [facility] on Friday. 01/29: Patient is doing much better his kidney function has improved significantly, UTI still been treated with Levaquin orally. Patient hemoglobin dropped down slightly he is interacting more than before and more awake. Still slightly but confused. The plan still to send him back to [facility] for more phys ical therapy either tomorrow on Friday. 01/30: Patient is doing much better his kidney function has improved significantly patient is stable hemodynamically awaiting to go to [facility] tomorrow. Objective - Vital Signs Vital signs: Vital Signs Temp 98.5 F 05/25/20 04:36 Pulse 68 01/31/20 04:36 Resp 14 01/31/20 04:36 BP 149/74 01/31/20 04:36 Pulse Ox 98 01/31/20 04:36 Intake & Output 01/30/20 01/31/20 01/31/20 18:59 06:59 18:59 Intake Total 800 Output Total 850 Balance 800 -850 Intake: Oral 800 Output: Urine 850 Other: Voiding Method Indwelling Catheter Indwelling Catheter # Bowel Movements 1 - Exam Review of Systems Constitutional: Reports anorexia, Denies chills, reports fatigue, Denies fever, reports lethargy, reports malaise, reports poor appetite, reports weakness, Denies weight loss Eyes: denies blurred vision, denies pain Ears, nose, mouth and throat: Denies dysphagia, Denies headache, Denies nasal congestion, Denies nasal discharge, Denies sore throat, Denies vertigo Cardiovascular: Denies chest pain, Denies decreased exercise tolerance, Denies dyspnea on exertion, Denies edema, Denies leg edema, Denies lightheadedness, Denies shortness of breath, Denies syncope Respiratory: Denies cough, Denies cough with sputum, Denies dyspnea, Denies excessive sputum, Denies hemoptysis, Denies home oxygen, Denies respiratory infections, Denies wheezing Gastrointestinal: Denies abdominal pain, Denies diarrhea, Denies loss of appetit e, Denies nausea, Denies vomiting Genitourinary: Denies dysuria, Denies urinary frequency, Denies urinary retention Musculoskeletal: Reports gait dysfunction, reports muscle weakness, Denies myalgias Integumentary: Denies pruritus, Denies rash, Denies wounds, reports ecchymosis to the right hip Neurological: Denies change in mentation, Denies change in speech, Denies numbness, Denies seizures, Denies weakness Psychiatric: Denies anxiety, Denies depression Endocrine: Denies fatigue, Denies weight change Physical examination Gen: This is a 79-year-old thin male. Patient is resting in bed and appears in no acute distress. HEENT: Head is atraumatic, normocephalic. Pupils equal, round. Sclerae is anicteric. NECK: Supple. No JVD. No lymphadenopathy. No thyromegaly. LUNGS: Clear to auscultation. No wheezes or rhonchi. No intercostal retractions. HEART: Regular rate and rhythm. No murmur. ABDOMEN: Soft. Bowel sounds are present. No masses. No tenderness. EXTREMITIES: No pedal edema. No calf tenderness. Ecchymosis to the right hip/posterior leg. NEUROLOGICAL: Patient is awake, oriented to person and place. Cranial nerves 2 through 12 are grossly intact. Significant generalized weakness noted. - Labs CBC & Chem 7: 01/30/20 06:32 01/30/20 06:32 Assessment and Plan Assessment: 1 acute kidney injury: Continue hydration, creatinine is back to normal patient most likely had obstructive uropathy has been improved significantly still have Urbina cath at this point. His GFR is above 60 today and improving. 2 leukocytosis and urine tract infection with mild sepsis and UTI, patient is to continue Levaquin for 5 more days. 3 recent hospitalization for hip fracture post hemiarthroplasty doing well. 4 hypertension: Continue amlodipine at 5 mg a day. 5 history of Parkinson disease on Sinemet doing better. 6 history of Parkinson dementia: No change in his mentation has improved some today. 7 mild depression: Remain on Zoloft 25 g a day. 8 BPH with mild urinary retention remain on alpha-devin and still have Urbina cath at this point. 9 Covid 19 testing negative. 10 severe protein calorie malnutrition, continue Ensure Plus 3 times a day and continued follow dietitian information. Family meeting: I had long discussion with the son and the last few days and fully aware of. With the patient 1 him to go back to [facility] for rehab at this point patient remain DO NOT RESUSCITATE. Discharge planning: Planning to send him back to [facility] tomorrow.
[2020-01-31] MEDS: FAMOTIDINE 20 MG TAB PO SCH (09:36)
[2020-01-31] MEDS: HEPARIN SODIUM,PORCINE 5,000 UNIT/ML 1 ML VIAL SQ SCH ×2 (09:38→20:48)
[2020-01-31] MEDS: CARBIDOPA-LEVODOPA ER 50-200MG 1 EACH TABLET.ER PO SCH ×2 (09:38→13:19)
[2020-01-31] MEDS: DOCUSATE 100 MG CAP PO SCH (09:38)
[2020-01-31] MEDS: amLODIPine 5 MG TAB PO SCH (09:38)
[2020-01-31] MEDS: LEVOFLOXACIN 250 MG TAB PO SCH (09:38)
[2020-01-31] MEDS: TAMSULOSIN 0.4 MG CAP.ER.24H PO SCH (09:41)
--- NOTE | 2020-01-31 10:31 | P.PN ---
Subjective Patient is seen in follow-up for acute kidney injury. GFR back to baseline. Denies chest pain or shortness of breath. No vomiting or diarrhea. He has a Urbina catheter for urinary retention. Nonoliguric. Hemodynamically stable. Vital signs are stable. General: The patient appeared well nourished and normally developed. HEENT: Head exam is unremarkable. Neck is without jugular venous distension. LUNGS: Lungs are clear to auscultation and percussion. Breath sounds decreased. HEART: Rate and Rhythm are regular. ABDOMEN: Abdominal exam reveals normal bowel sounds. Non-tender and non- distended. EXTREMITITES: No clubbing, cyanosis, or edema. Objective - Vital Signs Vital signs: Vital Signs Temp 98.5 F 01/31/20 04:36 Pulse 68 01/31/20 04:36 Resp 14 01/31/20 04:36 BP 149/74 01/31/20 04:36 Pulse Ox 98 01/31/20 04:36 Intake & Output 01/30/20 01/31/20 01/31/20 18:59 06:59 18:59 Intake Total 800 Output Total 850 Balance 800 -850 Intake: Oral 800 Output: Urine 850 Other: Voiding Method Indwelling Catheter Indwelling Catheter # Bowel Movements 1 - Labs CBC & Chem 7: 01/30/20 06:32 01/30/20 06:32 Assessment and Plan Plan: Assessment: 1. Acute kidney injury mostly prerenal improving with IV hydration. Also component of urinary retention. Creatinine was 3.59 on admission and down to 0.65 as of yesterday. Baseline creatinine near 1. No hydronephrosis noted on renal ultrasound. 2. History of Parkinson's disease. 3. Benign hypertension. Controlled. 4. Hyperkalemia secondary to acute kidney injury and urinary retention. Resolved. 5. Pyuria. Maintain on antibiotics. Urine culture negative so far. 6. Urinary retention. Currently has Urbina catheter. Also on Flomax. Plan: Avoid nephrotoxins. Hold amlodipine for systolic blood pressure less than 120. According to the nurse, patient was quite agitated without the Urbina catheter. Can leave it in for now and try to remove it in 3-4 days at rehab and monitor for retention.
[2020-01-31] MEDS: Acetaminophen-Codeine 300-30mg TAB PO PRN (14:11)
[2020-01-31] MEDS: SERTRALINE 25 MG TAB PO SCH (20:48)
[2020-02-01 01:52] VITALS: RESP 18
[2020-02-01] MEDS: SODIUM CHLORIDE 0.9% 1,000 ML IV SCH (05:34)
[2020-02-01 05:59] VITALS: BP 130/72; PULSE 70; TEMP 97.9
[2020-02-01 06:58] LABS: Basophils % (A) 0 %; Eosinophils # (A) 0.1 k/uL (0-0.7); Eosinophils % (A) 2 %; HCT 29.3 % (39.0-53.0); HGB 9.5 gm/dL (13.0-17.5); Hypochromasia Slight; Lymphocytes # (A) 0.6 k/uL (1.0-4.8); Lymphocytes % (A) 11 %; MCH 30.5 pg (25.0-35.0); MCHC 32.5 g/dL (31.0-37.0); MCV 93.8 fL (80.0-100.0); Mean Platelet Volume 6.6; Monocytes # (A) 0.3 k/uL (0-1.0); Monocytes % (A) 7 %; Neutrophils # (A) 3.8 k/uL (1.3-7.7); Neutrophils % (A) 78 %; Platelet Count 466 k/uL (150-450); RBC 3.13 m/uL (4.30-5.90); RDW 14.4 % (11.5-15.5); WBC 4.9 k/uL (3.8-10.6)
[2020-02-01 07:10] LABS: ALT 24 U/L (4-49); AST 25 U/L (17-59); African American GFR (CKD) >90 (>60 ml/min/1.73 sqM); Albumin 2.4 g/dL (3.5-5.0); Alkaline Phosphatase 119 U/L (38-126); Anion Gap 5 mmol/L; Blood Urea Nitrogen 16 mg/dL (9-20); Calcium 8.3 mg/dL (8.4-10.2); Carbon Dioxide 25 mmol/L (22-30); Chloride 106 mmol/L (98-107); Glucose 107 mg/dL (74-99); Non-African American GFR(CKD) >90 (>60 ml/min/1.73 sqM); Potassium 4.1 mmol/L (3.5-5.1); Sodium 136 mmol/L (137-145); Total Bilirubin 0.2 mg/dL (0.2-1.3); Total Protein 5.1 g/dL (6.3-8.2)
[2020-02-01] MEDS: FAMOTIDINE 20 MG TAB PO SCH (08:05)
[2020-02-01] MEDS: TAMSULOSIN 0.4 MG CAP.ER.24H PO SCH (08:06)
[2020-02-01] MEDS: CARBIDOPA-LEVODOPA ER 50-200MG 1 EACH TABLET.ER PO SCH (08:06)
[2020-02-01] MEDS: Acetaminophen-Codeine 300-30mg TAB PO PRN (08:06)
[2020-02-01] MEDS: amLODIPine 5 MG TAB PO SCH (08:06)
[2020-02-01] MEDS: DOCUSATE 100 MG CAP PO SCH (08:07)
[2020-02-01] MEDS: HEPARIN SODIUM,PORCINE 5,000 UNIT/ML 1 ML VIAL SQ SCH (08:07)
[2020-02-01] MEDS ORDERED: LEVOFLOXACIN 500 MG TAB PO SCH (09:00)
--- NOTE | 2020-02-01 09:23 | P.DS ---
Providers Date of admission: 01/27/20 22:57 Attending physician: Abraham Baptiste Consults: 01/27/20 23:28 Consult Physician Stat Consulting Provider: Maritza Roach Consult Reason/Comments: acute renal failure Do you want consulting provider notified?: Yes Primary care physician: Keanu Davila Hospital Course: Principal diagnosis: Acute kidney injury, leukocytosis, right hip fracture post hemiarthroplasty, hypertension, BPH, Parkinson disease, skin cancer. This is an 79-year-old male patient of Dr. Davila with past medical history of hypertension, benign prostatic hypertrophy, dementia, Parkinson's, previous left hip replacement with Dr. Reid. Patient was recently hospitalized January 11 through January 16 for right femoral neck fracture status post total hip arthroplasty completed on January [address] Gongora. Patient was discharge to [facility] for subacute rehab. Patient was more lethargic yesterday with generalized weakness. He did not have any falls at the assisted. He had lab work done which revealed acute kidney injury with a creatinine of 5.14 and BUN of 61. Patient was transferred to [facility] emergency center for evaluation. A Urbina catheter was replaced in the emergency center area repeat blood work in the emergency center did show a white count of 15.9, hemoglobin 10.9, potassium 5.5, BUN 55 and creatinine 3.59, phosphorus 4.8. Urinalysis was clear with moderate blood, trace leukoesterase, greater than 182 WBCs, 27 WBCs. Patient was started on Rocephin and [facility], consult with nephrology. Patient's was contacted and provided update on the patient's condition. She does voice the patient wishes to BE a no code. 01/28: Patient is doing much better is able to interact slightly I update the family with his condition at this point his creatinine is much better he remain with a Urbina catheter and apparently his obstructive uropathy and UTIs affected his kidney function and has improved with the treatment. continue to do physical therapy and anticipate to go back to [facility] on Friday. 01/29: Patient is doing much better his kidney function has improved significantly, UTI still been treated with Levaquin orally. Patient hemoglobin dropped down slightly he is interacting more than before and more awake. Still slightly but confused. The plan still to send him back to [facility] for more physical therapy either tomorrow on Friday. 01/30: Patient is doing much better his kidney function has improved significantly patient is stable hemodynamically awaiting to go to [facility] tomorrow. Objective - Vital Signs Vital signs: Vital Signs Temp 98.5 F 01/31/20 04:36 Pulse 68 01/31/20 04:36 Resp 14 01/31/20 04:36 BP 149/74 01/31/20 04:36 Pulse Ox 98 01/31/20 04:36 Intake & Output 01/30/20 01/31/20 01/31/20 18:59 06:59 18:59 Intake Total 800 Output Total 850 Balance 800 -850 Intake: Oral 800 Output: Urine 850 Other: Voiding Method Indwelling Catheter Indwelling Catheter # Bowel Movements 1 - Exam Review of Systems Constitutional: Reports anorexia, Denies chills, reports fatigue, Denies fever, reports lethargy, reports malaise, reports poor appetite, reports weakness, Denies weight loss Eyes: denies blurred vision, denies pain Ears, nose, mouth and throat: Denies dysphagia, Denies headache, Denies nasal congestion, Denies nasal discharge, Denies sore throat, Denies vertigo Cardiovascular: Denies chest pain, Denies decreased exercise tolerance, Denies dyspnea on exertion, Denies edema, Denies leg edema, Denies lightheadedness, Denies shortness of breath, Denies syncope Respiratory: Denies cough, Denies cough with sputum, Denies dyspnea, Denies excessive sputum, Denies hemoptysis, Denies home oxygen, Denies respiratory infections, Denies wheezing Gastrointestinal: Denies abdominal pain, Denies diarrhea, Denies loss of appetite, Denies nausea, Denies vomiting Genitourinary: Denies dysuria, Denies urinary frequency, Denies urinary retention Musculoskeletal: Reports gait dysfunction, reports muscle weakness, Denies myalgias Integumentary: Denies pruritus, Denies rash, Denies wounds, reports ecchymosis to the right hip Neurological: Denies change in mentation, Denies change in speech, Denies numbness, Denies seizures, Denies weakness Psychiatric: Denies anxiety, Denies depression Endocrine: Denies fatigue, Denies weight change Physical examination Gen: This is a 79-year-old thin male. Patient is resting in bed and appears in no acute distress. HEENT: Head is atraumatic, normocephalic. Pupils equal, round. Sclerae is anicteric. NECK: Supple. No JVD. No lymphadenopathy. No thyromegaly. LUNGS: Clear to auscultation. No wheezes or rhonchi. No intercostal retractions. HEART: Regular rate and rhythm. No murmur. ABDOMEN: Soft. Bowel sounds are present. No masses. No tenderness. EXTREMITIES: No pedal edema. No calf tenderness. Ecchymosis to the right hip/posterior leg. NEUROLOGICAL: Patient is awake, oriented to person and place. Cranial nerves 2 through 12 are grossly intact. Significant generalized weakness noted. - Labs CBC & Chem 7: 01/30/20 06:32 01/30/20 06:32 Assessment and Plan Assessment: 1 acute kidney injury: Continue hydration, creatinine is back to normal patient most likely had obstructive uropathy has been improved significantly still have Urbina cath at this point. His GFR is above 60 today and improving. 2 leukocytosis and urine tract infection with mild sepsis and UTI, patient is to continue Levaquin for 5 more days. 3 recent hospitalization for hip fracture post hemiarthroplasty doing well. 4 hypertension: Continue amlodipine at 5 mg a day. 5 history of Parkinson disease on Sinemet doing better. 6 history of Parkinson dementia: No change in his mentation has improved some today. 7 mild depression: Remain on Zoloft 25 g a day. 8 BPH with mild urinary retention remain on alpha-devin and still have Urbina cath at this point. 9 Covid 19 testing negative. 10 severe protein calorie malnutrition, continue Ensure Plus 3 times a day and continued follow dietitian information. Family meeting: I had long discussion with the son and the last few days and fully aware of. With the patient 1 him to go back to [facility] for rehab at this point patient remain DO NOT RESUSCITATE. Discharge planning: Planning to send him back to [facility] tomorrow. 01/31: Patient is doing well with physical therapy had bowel movement this morning increase in urine output still have Urbina catheter and will keep him on Levaquin for total of 5 days and patient will be going back to [facility] for more rehab. Patient Condition at Discharge: Serious Plan - Discharge Summary New Discharge Prescriptions: New Levofloxacin [Levaquin] 500 mg PO DAILY #5 tab Famotidine [Pepcid] 20 mg PO DAILY tab Continue amLODIPine [Norvasc] 5 mg PO DAILY@0800 Tamsulosin HCl [Flomax] 0.4 mg PO DAILY@0800 Sertraline HCl [Zoloft] 25 mg PO HS@2100 L.acidoph,Paracasei, B.lactis [Probiotic] 1 cap PO DAILY@0800 Psyllium Husk (with Sugar) [Metamucil Powder] 11 gm PO DAILY PRN PRN Reason: Constipation Carbidopa/Levodopa [Sinemet CR 50-200 mg] 1 tab PO DAILY@0800 Carbidopa/Levodopa [Sinemet CR 50-200 mg] 0.5 each PO DAILY@1300 Docusate [Colace] 100 mg PO DAILY #30 capsule Acetaminophen with Codeine [Tylenol w/codeine #3] 1 tab PO Q6H PRN #28 tab PRN Reason: Pain Heparin Sodium,Porcine [Heparin Sodium] 5,000 unit SQ Q12HR #28 vial Potassium Chloride ER [K-Dur 20] 20 meq PO ONCE Magnesium Hydroxide [Milk of Magnesia Concentrate] 7,200 mg PO DAILY PRN PRN Reason: Constipation Na Phos,M-B/Na Phos,Di-Ba [Fleet Adult] 133 ml RECTAL DAILY PRN PRN Reason: Constipation Bisacodyl [Dulcolax] 10 mg RECTAL DAILY PRN PRN Reason: Constipation Lactose-Reduced Food [Ensure Plus] 1 can PO TID@0800,1200,1700 Discharge Medication List Tamsulosin HCl [Flomax] 0.4 mg PO DAILY@0800 04/10/17 [History] amLODIPine [Norvasc] 5 mg PO DAILY@0800 04/10/17 [History] Sertraline HCl [Zoloft] 25 mg PO HS@2100 02/26/18 [History] Carbidopa/Levodopa [Sinemet CR 50-200 mg] 0.5 each PO DAILY@1300 01/12/20 [History] Carbidopa/Levodopa [Sinemet CR 50-200 mg] 1 tab PO DAILY@0800 01/12/20 [History] L.acidoph,Paracasei, B.lactis [Probiotic] 1 cap PO DAILY@0800 01/12/20 [History] Psyllium Husk (with Sugar) [Metamucil Powder] 11 gm PO DAILY PRN 01/12/20 [History] Acetaminophen with Codeine [Tylenol w/codeine #3] 1 tab PO Q6H PRN #28 tab 01/17/20 [Rx] Docusate [Colace] 100 mg PO DAILY #30 capsule 01/17/20 [Rx] Heparin Sodium,Porcine [Heparin Sodium] 5,000 unit SQ Q12HR #28 vial 01/17/20 [Rx] Bisacodyl [Dulcolax] 10 mg RECTAL DAILY PRN 01/28/20 [History] Lactose-Reduced Food [Ensure Plus] 1 can PO TID@0800,1200,1700 01/28/20 [History] Magnesium Hydroxide [Milk of Magnesia Concentrate] 7,200 mg PO DAILY PRN 01/28/20 [History] Na Phos,M-B/Na Phos,Di-Ba [Fleet Adult] 133 ml RECTAL DAILY PRN 01/28/20 [History] Potassium Chloride ER [K-Dur 20] 20 meq PO ONCE 01/28/20 [History] Famotidine [Pepcid] 20 mg PO DAILY tab 02/01/20 [Rx] Levofloxacin [Levaquin] 500 mg PO DAILY #5 tab 02/01/20 [Rx] Follow up Appointment(s)/Referral(s): Keanu Davila MD [Primary Care Provider] - 1-2 days Abraham Baptiste MD [Medical Doctor] - 1 Week Discharge Disposition: TRANSFER TO SNF/ECF
--- NOTE | 2020-02-03 10:56 | CDI ---
Documentation Clarification Form Date: 02/03/20 From: Mare Saini Phone: If you have a question about this query, please contact Betsy Manuel, Mail Distributor at [phone] between 8am and 5pm. Admit Date: 01/27/20 Discharge Date:02/01/20 Patient Name: Wil Benson Visit Number: [id number] ATTENTION: The Clinical Documentation Specialists (CDI) and [facility] Coding Staff appreciate your assistance in clarifying documentation. Please respond to the clarification below the line at the bottom and electronically sign. The CDI & [facility] Coding staff will review the response and follow-up if needed. Please note: Queries are made part of the Legal Health Record. If you have any questions, please contact the author of this message via ITS. Dear Dr. Baptiste UTI was documented in the ED note, discharge summary and your progress notes. History/Risk Factors: Urbina catheter, BPH, obstructive uropathy, altered mental status, sepsis Clinical Indicators: Abnormal UA Vital Signs: T. 98.2, P. 79, R. 18, BP 130/101 WBC: 14.9 Urinalysis: Leukocyte esterase Trace, RBC >182, WBC 27, Bacteria rare, mucus rare Urine Culture: No growth Treatment: Antibiotics: PO Levaquin Please document the condition that these clinical indicators signify, whether Present on Admission, and cause if known: UTI -If due to catheter, device or implant, please document XX -Identify location of infection (if known) Bladder, Kidney, Urethra Pyelonephritis Contaminated specimen Other, please specify Unable to determine Present on Admission: Yes No MTDD
--- NOTE | 2020-02-03 11:03 | CDI ---
Documentation Clarification Form Date: 02/03/20 From: Mare Saini Phone: If you have a question about this query, please contact Betsy Manuel, Fast Food Team Member at [phone] between 8am and 5pm. Admit Date: 01/27/20 Discharge Date:02/01/20 Patient Name: Wil Benson Visit Number: [id number] ATTENTION: The Clinical Documentation Specialists (CDI) and [facility] Coding Staff appreciate your assistance in clarifying documentation. Please respond to the clarification below the line at the bottom and electronically sign. The CDI & [facility] Coding staff will review the response and follow-up if needed. Please note: Queries are made part of the Legal Health Record. If you have any questions, please contact the author of this message via ITS. Dear Dr. Baptiste Patient was transferred from [facility] with a history of mental status changes was documented in Dr. Roach's consult note. Still slightly confused is documented in the discharge summary and your progress notes. History/Risk Factors: UTI, sepsis, MOHIT, hyperkalemia, malnutrition Clinical Indicators: Confused Labs: WBC 14.9, potassium 5.5, Creatinine 3.59 X Ray: CXR: New mild infiltrate behind the heart in the left lower lobe compared to old exam. Treatment: NS Bolus, IV Rocephin, PO Levaquin In your professional opinion, please clarify the etiology of the Altered Mental Status, if known. Delirium (specify cause): Dementia (if know, specify Type and if with/without Behavioral Disturbance) Encephalopathy (specify Type and Underlying Medical Illness) Other condition (please specify) Unable to determine MTDD
--- NOTE | 2020-02-08 11:02 | CDI ---
Documentation Clarification Form Date: 02/08/20 From: Mare Saini Phone: If you have a question about this query, please contact Betsy Manuel, Flight Radio Operator at [phone] between 8am and 5pm. Admit Date: 01/27/20 Discharge Date:02/01/20 Patient Name: Wil Benson Visit Number: [id number] ATTENTION: The Clinical Documentation Specialists (CDI) and [facility] Coding Staff appreciate your assistance in clarifying documentation. Please respond to the clarification below the line at the bottom and electronically sign. The CDI & [facility] Coding staff will review the response and follow-up if needed. Please note: Queries are made part of the Legal Health Record. If you have any questions, please contact the author of this message via ITS. Dear Dr. Baptiste Thank you for signing the previous query. Please document a response before signing this query. UTI was documented in the ED note, discharge summary and your progress notes. History/Risk Factors: Palafox catheter, BPH, obstructive uropathy, altered mental status, sepsis Clinical Indicators: Abnormal UA Vital Signs: T. 98.2, P. 79, R. 18, BP 130/101 WBC: 14.9 Urinalysis: Leukocyte esterase Trace, RBC >182, WBC 27, Bacteria rare, mucus rare Urine Culture: No growth Treatment: Antibiotics: PO Levaquin Please document the condition that these clinical indicators signify, whether Present on Admission, and cause if known: UTI -If due to catheter, device or implant, please document -Identify location of infection (if known) Bladder, Kidney, Urethra Pyelonephritis Contaminated specimen Other, please specify Unable to determine Present on Admission: Yes No UTI d/t arsalan palafoxD
--- NOTE | 2020-02-08 11:04 | CDI ---
Documentation Clarification Form Date: 02/08/20 From: Mare Saini Phone: If you have a question about this query, please contact Betsy Manuel Cds Sales Advisor at [phone] between 8am and 5pm. Admit Date: 01/27/20 Discharge Date:02/01/20 Patient Name: Wil Benson Visit Number: [id number] ATTENTION: The Clinical Documentation Specialists (CDI) and [facility] Coding Staff appreciate your assistance in clarifying documentation. Please respond to the clarification below the line at the bottom and electronically sign. The CDI & [facility] Coding staff will review the response and follow-up if needed. Please note: Queries are made part of the Legal Health Record. If you have any questions, please contact the author of this message via ITS. Dear Dr. Baptiste Thank you for signing the previous query. Please document a response before signing this query. Patient was transferred from [facility] with a history of mental status changes was documented in Dr. Roach's consult note. Still slightly confused is documented in the discharge summary and your progress notes. History/Risk Factors: UTI, sepsis, MOHIT, hyperkalemia, malnutrition Clinical Indicators: Confused Labs: WBC 14.9, potassium 5.5, Creatinine 3.59 X Ray: CXR: New mild infiltrate behind the heart in the left lower lobe compared to old exam. Treatment: NS Bolus, IV Rocephin, PO Levaquin In your professional opinion, please clarify the etiology of the Altered Mental Status, if known. Delirium (specify cause): Dementia (if know, specify Type and if with/without Behavioral Disturbance) Encephalopathy (specify Type and Underlying Medical Illness) Other condition (please specify) Unable to determine metabolic encephalopathy secondary to pneumonia MTDD
== END 2020-02-01 11:55 | DRG 698 ==
LOC: EC 21:40 → 5NMEDONC 22:57
PROVIDERS: ADMIT Internal Medicine Geriatric Medicine; ATTEND Internal Medicine Geriatric Medicine
DX: T83.511A Infection and inflammatory reaction due to indwelling urethral catheter, initial encounter (principal); A41.9 Sepsis, unspecified organism; E43 Unspecified severe protein-calorie malnutrition; G93.41 Metabolic encephalopathy; F33.9 Major depressive disorder, recurrent, unspecified; N13.8 Other obstructive and reflux uropathy; N17.9 Acute kidney failure, unspecified; Z68.1 Body mass index [BMI] 19.9 or less, adult; N39.0 Urinary tract infection, site not specified; E83.39 Other disorders of phosphorus metabolism; F02.80 Dementia in other diseases classified elsewhere, unspecified severity, without behavioral disturbance, psychotic disturbance, mood disturbance, and anxiety; G20 Parkinson's disease; E87.5 Hyperkalemia; I10 Essential (primary) hypertension; N40.1 Benign prostatic hyperplasia with lower urinary tract symptoms; N13.9 Obstructive and reflux uropathy, unspecified; R33.8 Other retention of urine; M19.90 Unspecified osteoarthritis, unspecified site; Z11.59 Encounter for screening for other viral diseases; Z66 Do not resuscitate; Z96.642 Presence of left artificial hip joint; Z79.899 Other long term (current) drug therapy; Z85.828 Personal history of other malignant neoplasm of skin; Z80.1 Family history of malignant neoplasm of trachea, bronchus and lung; Z80.8 Family history of malignant neoplasm of other organs or systems
CPT/HCPCS: 36415; 51702; 71045; 76770; 80048; 80053; 81001; 83605; 83735; 84100; 85025; 85027; 85610; 85730; 87086; 87635; 88305; 88312; 96361; 96365; 99285

== ENCOUNTER 2020-02-02 17:39 | Emergency (ER) | payer MEDICARE, BC ==
[2020-02-02 17:45] VITALS: RESP 16
--- NOTE | 2020-02-02 18:11 | ED ---
Fall HPI - General Chief Complaint: Fall Stated Complaint: Fall Time Seen by Provider: 02/02/20 17:53 Source: EMS Mode of arrival: EMS - History of Present Illness Initial Comments: 79-year-old male patient with past medical history significant for dementia and recent acute kidney injury discharged yesterday from this hospital presents to the emergency department today for evaluation of right hip pain and swelling. Patient had a fall from his wheelchair last evening. He was unwitnessed by staff. States that today he is complaining of right hip pain and there is some swelling. Patient did have a right total hip replacement a couple of weeks ago and has been recovering. Patient denies any current pain. Denies headache, blurred vision, double vision. Denies any dizziness. He is alert and oriented 1 which is his baseline per his was at bedside and provides most of history. Patient denies any back pain, chest pain, shortness of breath, abdominal pain, nausea, vomiting, or difficulties with bowel movements or urination. - Related Data Home Medications Medication Instructions Recorded Confirmed Tamsulosin HCl [Flomax] 0.4 mg PO DAILY@0800 04/10/17 01/28/20 amLODIPine [Norvasc] 5 mg PO DAILY@0800 04/10/17 01/28/20 Sertraline HCl [Zoloft] 25 mg PO HS@2100 02/26/18 01/28/20 Carbidopa/Levodopa [Sinemet CR 0.5 each PO DAILY@1300 01/12/20 01/28/20 50-200 mg] Carbidopa/Levodopa [Sinemet CR 1 tab PO DAILY@0800 01/12/20 01/28/20 50-200 mg] L.acidoph,Paracasei, B.lactis 1 cap PO DAILY@0800 01/12/20 01/28/20 [Probiotic] Psyllium Husk (with Sugar) 11 gm PO DAILY PRN 01/12/20 01/28/20 [Metamucil Powder] Bisacodyl [Dulcolax] 10 mg RECTAL DAILY PRN 01/28/20 01/28/20 Lactose-Reduced Food [Ensure Plus] 1 can PO TID@0800,1200,1700 01/28/20 01/28/20 Magnesium Hydroxide [Milk of 7,200 mg PO DAILY PRN 01/28/20 01/28/20 Magnesia Concentrate] Na Phos,M-B/Na Phos,Di-Ba [Fleet 133 ml RECTAL DAILY PRN 01/28/20 01/28/20 Adult] Potassium Chloride ER [K-Dur 20] 20 meq PO ONCE 01/28/20 01/28/20 Previous Rx's Medication Instructions Recorded Acetaminophen with Codeine 1 tab PO Q6H PRN #28 tab 01/17/20 [Tylenol w/codeine #3] Docusate [Colace] 100 mg PO DAILY #30 capsule 01/17/20 Heparin Sodium,Porcine [Heparin 5,000 unit SQ Q12HR #28 vial 01/17/20 Sodium] Famotidine [Pepcid] 20 mg PO DAILY tab 02/01/20 Levofloxacin [Levaquin] 500 mg PO DAILY #5 tab 02/01/20 Allergies Allergy/AdvReac Type Severity Reaction Status Date / Time No Known Allergies Allergy Verified 02/02/20 17:39 Review of Systems ROS Statement: Those systems with pertinent positive or pertinent negative responses have been documented in the HPI. ROS Other: All systems not noted in ROS Statement are negative. Past Medical History Past Medical History: Dementia, Hypertension, Prostate Disorder, Skin Disorder Additional Past Medical History / Comment(s): skin cancer rt ear, parkinsons History of Any Multi-Drug Resistant Organisms: None Reported Past Surgical History: Orthopedic Surgery Additional Past Surgical History / Comment(s): right hip replacement, biopsy of prostate, and skin cancer removed Additional Past Anesthesia/Blood Transfusion Reaction / Comment(s): unable to urinate after general anethesia Past Psychological History: No Psychological Hx Reported Smoking Status: Never smoker Past Alcohol Use History: None Reported Past Drug Use History: None Reported - Past Family History Brother(s) Family Medical History: Cancer Additional Family Medical History / Comment(s): Patient has 1 brother that is with history of some type of lung and neck growth. Sister(s) Family Medical History: Cancer Additional Family Medical History / Comment(s): Sister is with lung cancer. Father Additional Family Medical History / Comment(s): Both parents are . Unclear etiologies. General Exam Limitations: altered mental status General appearance: alert, in no apparent distress, other (This is a well- developed, well-nourished adult male patient in no acute distress. Vital signs upon presentation are temperature 99.0F, pulse 64, respirations 16, blood pressure 122/72, pulse ox 97% on room air.) Eye exam: Present: normal appearance, PERRL, EOMI. Absent: scleral icterus, conjunctival injection, periorbital swelling ENT exam: Present: normal exam, normal oropharynx, mucous membranes moist Respiratory exam: Present: normal lung sounds bilaterally. Absent: respiratory distress, wheezes, rales, rhonchi, stridor Cardiovascular Exam: Present: regular rate, normal rhythm, normal heart sounds. Absent: systolic murmur, diastolic murmur, rubs, gallop, clicks GI/Abdominal exam: Present: soft, normal bowel sounds. Absent: distended, tenderness, guarding, rebound, rigid Extremities exam: Present: full ROM, tenderness (right hip), normal capillary refill, other (There is soft tissue swelling over the right hip, cool to touch, no skin discoloration. This is over healing incision which is intact without drainage. Skin to the right leg is pink, warm, dry. Cap refills less than 3 seconds. Pedal and posttibial pulses 2+ and equal bilaterally.). Absent: normal inspection, pedal edema, joint swelling, calf tenderness Back exam: Present: normal inspection. Absent: vertebral tenderness Neurological exam: Present: alert, CN II-XII intact. Absent: oriented X3 (oriented x1) Psychiatric exam: Present: normal affect, normal mood Skin exam: Present: warm, dry, intact, normal color. Absent: rash Course Vital Signs 02/02/20 02/02/20 17:40 19:59 Temperature 99 F 98.3 F Pulse Rate 64 66 Respiratory 16 16 Rate Blood Pressure 122/72 117/80 O2 Sat by Pulse 97 97 Oximetry Medical Decision Making - Medical Decision Making 79-year-old male patient with past medical history significant for dementia and recent right total hip arthroplasty presents to the emergency department today for evaluation after experiencing a fall last evening. He didn't seem to have any injuries last night but started complaining of right hip pain today, nursing staff at the halfway facility noticed some swelling over the right hip and his incision site so they sent him in for further evaluation. Physical examination did reveal soft tissue swelling over the right hip, the incision is healing and intact with no drainage. X-rays of the right hip and pelvis were obtained and showed no acute abnormalities. CT brain and C-spine were negative. He will be discharged back to the halfway facility. He is instructed to follow-up with the primary care physician for recheck in his senior talent acquisition specialist as well. Return parameters were discussed in detail. Patient and agree with this plan. - Radiology Data Radiology results: report reviewed, image reviewed X-ray of the right hip and one view of the pelvis is obtained. Report was reviewed in its entirety. Impression by Dr. Walker shows no acute fracture dislocation of the pelvis or right hip. CT brain and C-spine without contrast was obtained. Report was reviewed in its entirety. Impression by Dr. Walker shows no acute fracture dislocation evident in the cervical spine. No acute intracranial hemorrhage or midline shift is seen. Disposition Clinical Impression: Fall, Hematoma of right hip Disposition: HOME SELF-CARE Condition: Good Instructions (If sedation given, give patient instructions): Fall Prevention for Older Adults (ED), Hematoma (ED) Additional Instructions: Apply ice to the right hip. Follow-up with senior talent acquisition specialist for further evaluation as soon as possible. Return to the emergency department immediately for any new, worsening, or concerning symptoms. Is patient prescribed a controlled substance at d/c from ED?: No Referrals: Abraham Baptiste MD [Primary Care Provider] - 1-2 days Time of Disposition: 19:16
--- NOTE | 2020-02-02 18:34 | XR ---
EXAMINATION TYPE: XR Hip RT and AP Pelvis DATE OF EXAM: 02/02/2020 COMPARISON: Right hip x-ray january 15, 2020. Pelvic x-ray January 12, 2020. HISTORY: Fall injury with pain. Recent right hip surgery. TECHNIQUE: A single AP view of the pelvis is obtained. Two views of the right hip are obtained. FINDINGS: Osseous structures remain demineralized. There is no acute fracture/dislocation evident in the pelvis. Lucency from overlying bowel gas makes evaluation of sacroiliac joints suboptimal along with rotation. Scattered pelvic phleboliths. Pubic symphysis is intact. Metallic hardware from bilate ral hip arthroplasty now present. Position left hip joint stable with adjacent heterotopic ossificati on Two views of right hip show no acute fracture or dislocation. Metallic hardware from total hip arthro plasty remains satisfactory in position. The overlying soft tissue is unremarkable. IMPRESSION: There is no acute fracture or dislocation in the pelvis or right hip.
--- NOTE | 2020-02-02 18:38 | CT ---
EXAMINATION TYPE: CT brain cspine wo con DATE OF EXAM: 02/02/2020 COMPARISON: Trauma CT 3 weeks earlier. HISTORY: Fall injury with headache and neck pain. CT DLP: 1242.6 mGycm. Automated Exposure Control for Dose Reduction was Utilized. TECHNIQUE: CT scan of the head and cervical spine are performed without contrast. FINDINGS: There is no acute intracranial hemorrhage or midline shift identified. Diffuse ventricula r and sulcal prominence consistent with mild to moderate generalized atrophy redemonstrated. Low-atte nuation in the deep and periventricular white matter consistent with product of chronic small vessel ischemic change. The globes are intact and the visualized sinuses are clear. Stable right frontal sundeep cent lesion eroding the right frontal calvarium coronal image 19 for reference. Cervical spine is visualized in its entirety from C1 through upper thoracic levels and demonstrates s table and satisfactory alignment without evidence of acute fracture or dislocation. Prevertebral sof t tissue appears within normal limits. The C1-C2 articulation is within normal limits on the coronal images. Osseous structures remain demineralized. Moderate multilevel disc space narrowing greatest C4-C5 through C6-C7 levels. Posterior spurring effaces anterior thecal sac at C5-C6 level similar to prior study. Review of axial images show some multilevel uncovertebral facet degenerative changes con tributing to multilevel bilateral neural foraminal narrowing for reference right greater than left C5 -C6 level on image 56. Thyroid gland is heterogeneous with asymmetric right thyroid enlargement and s ubsternal extension. Lung apices show mild to moderate pleural/parenchymal scarring without pneumotho rax. IMPRESSION: 1. There is no acute fracture or dislocation evident in the cervical spine. 2. No acute intracranial hemorrhage or midline shift is seen.
[2020-02-02 20:01] VITALS: BP 117/80; PULSE 66; TEMP 98.3
== END 2020-02-02 20:04 | disposition home or self-care (01) ==
LOC: EC 17:39
DX: S70.01XA Contusion of right hip, initial encounter (principal); G20 Parkinson's disease; F02.80 Dementia in other diseases classified elsewhere, unspecified severity, without behavioral disturbance, psychotic disturbance, mood disturbance, and anxiety; I10 Essential (primary) hypertension; N40.0 Benign prostatic hyperplasia without lower urinary tract symptoms; Z96.641 Presence of right artificial hip joint; Z85.828 Personal history of other malignant neoplasm of skin; Z79.899 Other long term (current) drug therapy; Z98.890 Other specified postprocedural states; W05.0XXA Fall from non-moving wheelchair, initial encounter; Y93.89 Activity, other specified; Y92.89 Other specified places as the place of occurrence of the external cause
CPT/HCPCS: 70450; 72125; 73502; 99284

== ENCOUNTER → 2020-03-30 | Outpatient (CLI) | payer MEDICARE, BC ==
--- NOTE | 2020-03-30 15:22 | CT ---
EXAMINATION TYPE: CT hip RT wo con DATE OF EXAM: 03/30/2020 COMPARISON: 02/02/2020 HISTORY: right hip pain CT DLP: 383.9 mGycm Automated exposure control for dose reduction was used. 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 There does appear to be extensive soft tissue heterotopic ossification surrounding the prostheses. The visualized portions of the osseous structures are intact. Vascular ca lcifications are seen and there is degenerative change of the lower lumbar spine. IMPRESSION: 1. Nearly nondiagnostic exam due to extreme metallic artifact from the right hip prostheses. Grossly the hip prostheses appears intact with no acute fracture. Extensive soft tissue heterotopic ossificat ion is noted. If there is concern for infection or loosening correlate with nuclear medicine triple p hase imaging.
== END | disposition home or self-care (01) ==
LOC: RADCTMAIN 14:45
PROVIDERS: ATTEND Internal Medicine Geriatric Medicine
DX: Z96.641 Presence of right artificial hip joint (principal); M79.89 Other specified soft tissue disorders; G20 Parkinson's disease; Z85.828 Personal history of other malignant neoplasm of skin; I10 Essential (primary) hypertension; N40.1 Benign prostatic hyperplasia with lower urinary tract symptoms

== ENCOUNTER → 2020-06-08 | Outpatient (CLI) | payer MEDICARE, BC ==
--- NOTE | 2020-06-08 09:12 | CT ---
EXAMINATION TYPE: CT brain wo con DATE OF EXAM: 06/08/2020 COMPARISON: 02/02/2020 INDICATION: Other cerebrovascular disease DLP: 1106 mGycm, Automated exposure control for dose reduction was used. CONTRAST: None CT of the brain is performed utilizing 3 mm thick sections through the posterior fossa and 3 mm thick sections through the remaining calvarium. Study is performed within 24 hours of arrival to the hosp [facility]. No abnormal hyperdensity is present to suggest an acute intracranial hemorrhage. No mass lesion is evident. No acute infarcts are evident. Periventricular white matter hypodensity is present, likely on the bas is of chronic white matter ischemic changes. Ventricles and sulci are prominent for the patient age. Paranasal sinuses and mastoid air cells within the [id number] are clear. IMPRESSIONS: 1. Atrophy with chronic appearing periventricular white matter ischemic changes, stable from compar curly.
== END | disposition home or self-care (01) ==
LOC: RADCTMAIN 07:51
PROVIDERS: ATTEND Psychiatry & Neurology Neurology
DX: G31.9 Degenerative disease of nervous system, unspecified (principal); I67.82 Cerebral ischemia; G81.94 Hemiplegia, unspecified affecting left nondominant side
CPT/HCPCS: 70450